=== PATIENT | female | born 1955 | race Two or more races ===

== ENCOUNTER 2023-07-24 13:05 | Outpatient (REF) | payer OTHER, SELFPAY ==
[2023-07-24 18:12] LABS: Anion Gap 14 (12-20); Blood Urea Nitrogen 37 mg/dL (9-16); Calcium 9.3 mg/dL (8.4-10.2); Carbon Dioxide 24 mmol/L (22-29); Chloride 107 mmol/L (96-108); Estimated Glomerular Filt Rate 38; Potassium 4.6 mmol/L (3.3-5.1); Sodium 140 mmol/L (135-145)
== END 2023-07-24 13:06 | disposition home or self-care (01) ==
LOC: HO.HKASLDS 13:05
PROVIDERS: Visit Provider Internal Medicine Nephrology
DX: N18.30 Chronic kidney disease, stage 3 unspecified (principal)
CPT/HCPCS: 36415; 80051; 82310; 82565; 84520

== ENCOUNTER 2023-07-25 15:21 | Outpatient (AMB) | payer OTHER, SELFPAY ==
[2023-07-25 15:39] VITALS: BP 130/70; PULSE 74; O2SAT 98; BMI 27.8
--- NOTE | 2023-07-25 15:39 | HO.NEPHOV ---
HPI HPI Comments History of Present Illness Details I had the privilege of seeing Christy in follow-up of her chronic kidney disease and hypertension. She has history of leukemia and had undergone bone marrow transplant in 1994( she had been in remission but used to see Dr. Caro at [facility] who has since retired). She does not have any chest pain, shortness of breath, proximal nocturnal dyspnea, orthopnea, pedal edema or urinary symptoms. Her recent serum creatinine was 1.4. [facility] Medical History (Updated 07/25/23 @ 16:09 by Dain Herrera MD) Leukemia Hypertension CKD (chronic kidney disease) stage 3, GFR 30-59 ml/min Surgical History (Updated 07/25/23 @ 15:45 by Aimee Ambrocio MA) History of cholecystectomy H/O bone marrow transplant Family History Father Heart disease Mother Diabetes Social History (Updated 07/25/23 @ 15:44 by Aimee Ambrocio MA) Alcohol intake: current Comment: Socially Patient Tobacco Use Status: Never used Tobacco Vital Signs 07/25/23 15:39 Height 5 ft 2 in Weight 152 lb 2 oz BMI 27.8 BP 130/70 Blood Pressure Location Lt brachial Position Sitting Pulse 74 Pulse Source Pulse Oximeter Pulse Oximetry (%) 98 Oxygen Delivery Method Room Air Physical Exam Vital Signs: Last Vital Signs Pulse 74 07/25/23 15:39 BP 130/70 07/25/23 15:39 Pulse Ox 98 07/25/23 15:39 Oxygen Delivery Method Room Air 07/25/23 15:39 BMI result Body Mass Index 27.8 Const General: comfortable and no acute distress Orientation/consciousness: patient oriented x3 HEENT Head: Yes normocephalic Mouth: Normal oral and palatal mucosa present Eyes EOM: EOMs intact bilaterally Neck Neck: Yes supple Resp Auscultation: clear to auscultation bilaterally Cardio Jugular venous distension: no JVD Rate: regular rate GI Palpation (GI): Soft to palpation Auscultation: normal bowel sounds General: Yes no CVA tenderness Back/Spine/Pelvis Back: no CVA tenderness Skin General skin exam: no rashes or lesions noted Neuro General: patient oriented x3 and moves all extremities Extrem General: Yes no pedal edema Assessment & Plan Assessment & Plan (1) CKD (chronic kidney disease) stage 3, GFR 30-59 ml/min: Code(s): N18.30 - Chronic kidney disease, stage 3 unspecified Qualifiers: Chronic kidney disease stage 3 subtype: stage 3a (GFR 45-59) Qualified Code(s): N18.31 - Chronic kidney disease, stage 3a (2) Hypertension: Code(s): I10 - Essential (primary) hypertension Qualifiers: Hypertension type: primary hypertension Qualified Code(s): I10 - Essential (primary) hypertension (3) Secondary hyperparathyroidism (of renal origin): Code(s): N25.81 - Secondary hyperparathyroidism of renal origin Ishan Harrison has CKD for long time. Her serum creatinine is currently stable with a last reading being 1.4. She is not known to have any significant proteinuria. Her blood pressure is currently at goal. She is compliant with amlodipine. Her ultrasound in the past was unrevealing. She avoids nonsteroidal anti-inflammatories and tries to keep up with good hydration. She has had high uric acid in the past and takes allopurinol on every other day. Her PTH couple years ago was high. I will check a parathyroid hormone level along with vitamin-D. Her serum calcium has been normal. I did not make any medication changes today. Follow-up blood work ordered. Answered all questions. Follow-up appointment given. Orders: Orders Electrolytes Today I10 - Essential (primary) hypertension, N18.30 - Chronic kidney disease, stage 3 unspecified Vitamin D 25-OH Total Today I10 - Essential (primary) hypertension, N18.30 - Chronic kidney disease, stage 3 unspecified, N25.81 - Secondary hyperparathyroidism of renal origin Creatinine Today I10 - Essential (primary) hypertension, N18.30 - Chronic kidney disease, stage 3 unspecified Blood Urea Nitrogen Today I10 - Essential (primary) hypertension, N18.30 - Chronic kidney disease, stage 3 unspecified Calcium Today I10 - Essential (primary) hypertension, N18.30 - Chronic kidney disease, stage 3 unspecified Uric Acid Today I10 - Essential (primary) hypertension, N18.30 - Chronic kidney disease, stage 3 unspecified Protein Creatinine Ratio, Ur Today I10 - Essential (primary) hypertension, N18.30 - Chronic kidney disease, stage 3 unspecified Parathyroid Hormone Intact Today I10 - Essential (primary) hypertension, N18.30 - Chronic kidney disease, stage 3 unspecified, N25.81 - Secondary hyperparathyroidism of renal origin Coding Level of Care Code Est Pt Level 4 (34914) Diagnoses Stage 3a chronic kidney disease N18.31 Chronic kidney disease stage 3 subtype: stage 3a (GFR 45-59) Primary hypertension I10 Hypertension type: primary hypertension Secondary hyperparathyroidism (of renal origin) N25.81 Results Reviewed Nephrology Results: Sodium 140 mmol/L (135-145) 07/24/23 Potassium 4.6 mmol/L (3.3-5.1) 07/24/23 Chloride 107 mmol/L (96-108) 07/24/23 Carbon Dioxide 24 mmol/L (22-29) 07/24/23 BUN 37 mg/dL (9-16) H 07/24/23 Creatinine 1.40 mg/dL (0.5-1.4) 07/24/23 Calcium 9.3 mg/dL (8.4-10.2) 07/24/23
== END 2023-07-25 16:02 | disposition home or self-care (01) ==
PROVIDERS: PCP Hospitalist; Visit Provider Internal Medicine Nephrology
DX: N18.31 Chronic kidney disease, stage 3a (principal); I10 Essential (primary) hypertension; N25.81 Secondary hyperparathyroidism of renal origin
CPT/HCPCS: 99214

== ENCOUNTER → 2023-07-25 15:21 | Outpatient (BNVA) | payer OTHER, SELFPAY | PROVIDERS: PCP Hospitalist; Visit Provider Internal Medicine Nephrology | DX: I12.9 Hypertensive chronic kidney disease with stage 1 through stage 4 chronic kidney disease, or unspecified chronic kidney disease (principal); N18.31 Chronic kidney disease, stage 3a; N25.81 Secondary hyperparathyroidism of renal origin | CPT/HCPCS: 99212 ==

== ENCOUNTER 2023-11-06 10:48 | Emergency (ER) | payer OTHER, SELFPAY ==
--- NOTE | ~2023-11-06 | XR_ITS ---
EXAMINATION: XR CHEST CLINICAL INFORMATION: Chest pain. COMPARISON: None available. TECHNIQUE: 2 views of the chest were obtained. FINDINGS: The lungs are clear. The cardiomediastinal silhouette is normal in size. There is no pleural effusion or pneumothorax. No acute osseous abnormality. XR/XR chest 2V IMPRESSION: No acute cardiopulmonary findings.
--- NOTE | 2023-11-06 10:50 | ECG_ITS ---
Test Reason : CHEST PAIN Blood Pressure : / mmHG Vent. Rate : 078 BPM Atrial Rate : 078 BPM P-R Int : 136 ms QRS Dur : 072 ms QT Int : 368 ms P-R-T Axes : 002 001 051 degrees QTc Int : 419 ms Normal sinus rhythm Septal infarct , age undetermined Abnormal ECG No previous ECGs available Referred By: Generic ED Physician Electronically Signed By:BILL HA MD
[2023-11-06 10:58] VITALS: BP 163/62; PULSE 83; RESP 16; TEMP 37; O2SAT 98; BMI 28.0
[2023-11-06 11:16] LABS: MANUAL DIFF FLAG NO
[2023-11-06 11:20] LABS: Basophils Percent Auto 0.3 % (0-2); Eosinophils Absolute Auto 0.5 X10*3/uL (0.0-0.4); Eosinophils Percent Auto 7.3 % (0-4); Hemoglobin 11.5 g/dl (12.0-16.0); Imm Gran Abs Auto 0.01 X10*3/uL (0.00-0.03); Imm Gran Pct Auto 0.2 % (0.0-0.4); Lymphocytes Absolute Auto 3.1 X10*3/uL (1.2-4.9); Lymphocytes Percent Auto 46.8 % (20-40); Mean Corpuscular HGB Conc 31.1 g/dl (31.0-35.0); Mean Corpuscular Hemoglobin 24.8 pg (27.0-33.0); Mean Corpuscular Volume 79.9 fL (80.0-98.0); Mean Platelet Volume 10.9 fL (9.4-12.3); Monocytes Absolute Auto 0.7 X10*3/uL (0.1-1.2); Monocytes Percent Auto 10.6 % (2-11); Neutrophils Absolute Auto 2.3 x10*3/uL (2.0-8.3); Neutrophils Percent Auto 34.8 % (45-73); Platelet Count 173 X10*3/uL (160-400); Red Blood Count 4.63 X10*6/uL (4.20-5.50); White Blood Count 6.5 X10*3/uL (4.8-10.8)
[2023-11-06 11:24] LABS: INTERNATIONAL NORM RATIO 0.9 (0.9-1.1); Prothrombin Time 11.1 SEC (11.1-13.3)
[2023-11-06 11:27] LABS: Partial Thromboplastin Time 24.4 SEC (26.0-36.8)
[2023-11-06 11:31] LABS: Anion Gap 15 (12-20); Blood Urea Nitrogen 38 mg/dL (9-16); Calcium 10.2 mg/dL (8.4-10.2); Carbon Dioxide 24 mmol/L (22-29); Chloride 109 mmol/L (96-108); Creatinine Clr Calc Pharmacy 38.6; Estimated Glomerular Filt Rate 41; Glucose Random 103 mg/dL (60-115); Potassium 4.8 mmol/L (3.3-5.1); Sodium 143 mmol/L (135-145)
[2023-11-06 11:37] LABS: B Type Natriuretic Peptide 21 pg/mL (<100)
[2023-11-06 11:44] LABS: Troponin-I High Sensitivity < 2.7 ng/L (<3.5-17.0)
--- NOTE | 2023-11-06 11:45 | ED_ITS ---
HPI - Chest Pain General Chief Complaint: Chest Pain Stated Complaint: chest pain Time Seen by Provider: 11/06/23 11:42 Source: patient Mode of arrival: ambulatory Limitations: language barrier History of Present Illness ED Provider: Dr. Singletary HPI narrative: Patient with a week of bilateral flank pain now going to her abdomen after a week. Feeling worse no nausea, vomiting or diarrhea, no chest pain or shortness of breath Onset (ago): week(s) Timing of current episode: episodic Prior episodes: Yes Related Data Previous Rx's ?Medication ?Instructions ?Recorded pantoprazole 40 mg tablet,delayed 40 mg PO DAILY #20 tabs 11/06/23 release (Protonix) Allergies Allergy/AdvReac Type Severity Reaction Status Date / Time No Known Allergies Allergy Verified 11/06/23 11:01 Review of Systems 2 Review of Systems: Yes all other systems are reviewed and are negative Neurologic: Denies Sensory deficit (Neuro) [facility] Past Medical History Medical History Leukemia Hypertension CKD (chronic kidney disease) stage 3, GFR 30-59 ml/min Surgical History History of cholecystectomy H/O bone marrow transplant Family History Family History Father Heart disease Mother Diabetes Social History Social History Alcohol intake: current Comment: Socially Patient Tobacco Use Status: Never used Tobacco Physical Exam 2 Vital Signs: Vital Signs: Last Vital Signs Temp 98.1 F 11/06/23 14:20 Pulse 76 11/06/23 14:20 Resp 17 11/06/23 14:20 BP 157/79 H 11/06/23 14:20 Pulse Ox 99 11/06/23 14:20 O2 Del Method Room Air 11/06/23 14:20 BMI result Body Mass Index 28.0 Const: General: healthy appearing Nutritional Appearance: average body habitus Orientation/consciousness: oriented to person and patient oriented x3 Limitations: no limitations HEENT: Head: Yes normal to inspection Ears: external ears normal General nose exam: Normal external nose present Mouth: Normal oral and palatal mucosa present and oropharynx normal Throat: Yes posterior oropharynx normal Eyes: General: appearance normal, both eyes and all related structures Neck: Other: supple Neck: Yes normal visual inspection Chest: Chest palpation & inspection: normal inspection of the chest Resp: Auscultation: clear to auscultation bilaterally Cardio: Jugular venous distension: no JVD Rate: regular rate Rhythm: r egular rhythm Heart sounds: S1 normal heart sound present and S2 normal heart sound present GI: Other: Mild epigastric and right upper quadrant pain Inspection: Yes normal to inspection Auscultation: normal bowel sounds : General: Yes no CVA tenderness Back/Spine/Pelvis: Back: no CVA tenderness Skin: General skin exam: no rashes or lesions noted Neuro: General: oriented to person and patient oriented x3 Cranial nerves: Yes CN's II-XII intact bilaterally Motor exam (neuro): 5/5 motor strength present throughout Sensory Exam: No Sensory deficit (Neuro) Extrem: General: Yes normal to inspection Psych: Appearance: grossly normal Course Reevaluation(s) Reevaluation #1: patient feeling better will treat for gastritis and have patient follow up with pmd Time: 13:50 Medications Administered Discontinued Medications Generic Name Dose Route Start Last Admin Trade Name Freq PRN Reason Stop Dose Admin Al Hydroxide/Mg Hydroxide 30 ml 11/06/23 12:20 11/06/23 12:31 Magnesium Hydrox/Alum Hydrox 30 Ml Oral.Susp PO 11/06/23 12:21 30 ml ONCE ONE Administration Belladonna Alkaloids/Phenobarbital 10 ml 11/06/23 12:20 11/06/23 12:32 Phenobarb/Hyoscy/Atropine/Scop 10 Ml Elixir PO 11/06/23 12:21 10 ml ONCE ONE Administration Famotidine 20 mg 11/06/23 12:21 11/06/23 12:31 Famotidine 20 Mg Tablet PO 11/06/23 12:22 20 mg ONCE ONE Administration Lidocaine HCl 15 ml 11/06/23 12:20 11/06/23 12:32 Lidocaine Hcl Viscous 2 % 15 Ml Solution MUCOUS MEM 11/06/23 12:21 15 ml ONCE ONE Administration Medical Decision Making Differential Diagnosis Differential Diagnoses: The differential diagnosis associated with the presentation includes (cardiac ischemia, biliary obstruction, pancreatitis, pneumonia were all considered) Admission/Observation Consideration of admission/observation: Escalation of care including admission/observation considered (upon arrival patient considered for admission) Lab Data 11/06/23 11:08 11/06/23 11:08 Labs: Lab Results 11/06/23 Range/Units 11:08 WBC 6.5 (4.8-10.8) X10*3/uL RBC 4.63 (4.20-5.50) X10*6/uL Hgb 11.5 L (12.0-16.0) g/dl Hct 37.0 (37.0-47.0) % MCV 79.9 L (80.0-98.0) fL MCH 24.8 L (27.0-33.0) pg MCHC 31.1 (31.0-35.0) g/dl RDW 17.0 H (11.0-16.0) % Plt Count 173 (160-400) X10*3/uL MPV 10.9 (9.4-12.3) fL Immature Gran % (Auto) 0.2 (0.0-0.4) % Neut % (Auto) 34.8 L (45-73) % Lymph % (Auto) 46.8 H (20-40) % [place] % (Auto) 10.6 (2-11) % Eos % (Auto) 7.3 H (0-4) % Baso % (Auto) 0.3 (0-2) % Lymph # (Auto) 3.1 (1.2-4.9) X10*3/uL [place] # (Auto) 0.7 (0.1-1.2) X10*3/uL Eos # (Auto) 0.5 H (0.0-0.4) X10*3/uL Baso # (Auto) 0.0 (0.0-0.2) X10*3/uL Abs Immat Gran (auto) 0.01 (0.00-0.03) X10*3/uL Absolute Neuts (auto) 2.3 (2.0-8.3) x10*3/uL Absolute Nucleated RBC 0.000 (0.0-0.012) X10*3/uL Nucleated RBC % (auto) 0.0 (0.0-0.2) /100WBC PT 11.1 (11.1-13.3) SEC INR 0.9 (0.9-1.1) APTT 24.4 L (26.0-36.8) SEC Sodium 143 (135-145) mmol/L Potassium 4.8 (3.3-5.1) mmol/L Chloride 109 H (96-108) mmol/L Carbon Dioxide 24 (22-29) mmol/L Anion Gap 15 (12-20) BUN 38 H (9-16) mg/dL Creatinine 1.29 (0.5-1.4) mg/dL Estim Creat Clear Calc 38.6 Estimated GFR 41 Random Glucose 103 (60-115) mg/dL Calcium 10.2 D (8.4-10.2) mg/dL Total Bilirubin 0.3 (0.0-1.0) mg/dL Direct Bilirubin < 0.1 (0.0-0.5) mg/dL AST 23 (5-31) U/L ALT 21 (0-31) U/L Alkaline Phosphatase 140 H (39-117) U/L Troponin I High Sens < 2.7 (<3.5-17.0) ng/L B-Natriuretic Peptide 21 (<100) pg/mL Total Protein 7.7 (6.5-8.0) g/dL Albumin 4.0 (3.5-5.0) g/dL Lipase 47 (8-78) U/L Influenza Type A (PCR) NEGATIVE (Negative) Influenza Type B (PCR) NEGATIVE (Negative) RSV RNA Qual (PCR) NEGATIVE (Negative) SARS-CoV-2 RNA (RT-PCR) NEGATIVE (Negative) Independent Interpretation I performed an independent interpretation of an: EKG (sinus 80, no st or twave changes) Independent Historian Clinical information obtained from an independent historian. History obtained from or confirmed by: Other (family) Tests considered The following testing was considered but not selected: RUQ US considered but lfts and bili and lipase all normal Prescription Management I considered prescription management with: Antibiotic (no evidence of pneumonia on CXR) Chronic Conditions Patient?s care impacted by: Hypertension Discharge Plan Discharge Clinical Impression: Chronic GERD Patient Disposition: Home, Self-Care Instructions: Gastroesophageal Reflux Disease (ED), Indigestion (ED), Noncardiac Chest Pain (ED) Prescriptions: New pantoprazole [Protonix] 40 mg tablet,delayed release (DR/EC) 40 mg PO DAILY Qty: 20 0RF Referrals: Physician,Unknown J [Primary Care Provider] - 5 days Interventions: ED Discharge Assessment Last Done: 11/06/23 14:20 Discharge Date/Time: 11/06/23 14:21 Print Language: Yoruba
[2023-11-06 11:55] LABS: Influenza A PCR NEGATIVE (Negative); Influenza B PCR NEGATIVE (Negative); Resp Syncy Virus RNA Qual PCR NEGATIVE (Negative); SARS COV2 PCR INHOUSE NEGATIVE (Negative)
[2023-11-06 12:14] VITALS: BP 174/90; PULSE 76; RESP 18; TEMP 36.6; O2SAT 98
--- NOTE | 2023-11-06 12:15 | PC.NURSE ---
Palestinian speaking only, medical data entry clerk utilized. Pt presents from home, reports back pain radiating to her epigastric area, 01/24, describes as aching and pressure. Pt reports this has been ongoing X1 week, worsened today. Denies N/V/D, SOB, fever, cough. Denies any recent illnesses or falls, did not take home meds today. Is on blood thinners for previous DVTs. Pt is alert and oriented, breathing even and unlabored, skin warm and dry. On bedside color television console monitor, NSR. BP hypertensive.
[2023-11-06] MEDS: Famotidine 20 MG TABLET PO (12:31)
[2023-11-06] MEDS: Magnesium Hydrox/Alum Hydrox 30 ML ORAL.SUSP PO (12:31)
[2023-11-06] MEDS: Lidocaine HCl Viscous 2 % 15 ML SOLUTION MUCOUS MEM (12:32)
[2023-11-06] MEDS: PHENobarb/Hyoscy/Atropine/Scop 10 ML ELIXIR PO (12:32)
[2023-11-06 12:46] LABS: Alanine Aminotransferase 21 U/L (0-31); Alkaline Phosphatase 140 U/L (39-117); Aspartate Amino Transferase 23 U/L (5-31); Bilirubin Direct < 0.1 mg/dL (0.0-0.5); Bilirubin Total 0.3 mg/dL (0.0-1.0); Lipase 47 U/L (8-78); Total Protein 7.7 g/dL (6.5-8.0)
[2023-11-06 14:19] VITALS: BP 157/79; PULSE 76; RESP 17; TEMP 36.7; O2SAT 99
[2023-11-06 14:20] VITALS: BP 157/79; PULSE 76; RESP 17; TEMP 36.7; O2SAT 99
== END 2023-11-06 14:21 | disposition home or self-care (01) ==
PROVIDERS: Emergency Provider Emergency Medicine
DX: K21.9 Gastro-esophageal reflux disease without esophagitis (principal); R07.9 Chest pain, unspecified; R10.9 Unspecified abdominal pain; I12.9 Hypertensive chronic kidney disease with stage 1 through stage 4 chronic kidney disease, or unspecified chronic kidney disease; N18.30 Chronic kidney disease, stage 3 unspecified; C95.90 Leukemia, unspecified not having achieved remission; Z03.818 Encounter for observation for suspected exposure to other biological agents ruled out
CPT/HCPCS: 0241U; 36415; 71046; 80048; 80076; 83690; 83880; 84484; 85025; 85610; 85730; 93005; 99283; 99285

== ENCOUNTER → 2023-11-06 10:50 | Outpatient (BNV) | payer OTHER, SELFPAY | PROVIDERS: Emergency Provider Emergency Medicine; Visit Provider Internal Medicine Cardiovascular Disease | DX: R94.31 Abnormal electrocardiogram [ECG] [EKG] (principal) | CPT/HCPCS: 93010 ==

== ENCOUNTER 2023-12-31 15:46 | Outpatient (AMB) | payer OTHER, SELFPAY ==
[2023-12-31 16:16] VITALS: BP 132/70; PULSE 79; O2SAT 98; BMI 27.2
--- NOTE | 2023-12-31 16:16 | HO.NEPHOV_ITS ---
Vital Signs 12/31/23 16:16 Height 5 ft 2 in Weight 149 lb BMI 27.2 BP 132/70 Blood Pressure Location Lt brachial Position Sitting Pulse 79 Pulse Source Pulse Oximeter Pulse Oximetry (%) 98 Oxygen Delivery Method Room Air Intake Visit Reasons: 4 mon follow up Set Up Inspector Required: No Accompanied by: Daughter In Law Allergies No Known Allergies Allergy (Verified 12/31/23 16:18) HPI Comments Details: I had the privilege of seeing Christy in follow-up of her chronic kidney disease and hypertension. She has history of leukemia and had undergone bone marrow transplant in 1994( she had been in remission but used to see Dr. Caro at [facility] who has since retired). She does not have any chest pain, shortness of breath, proximal nocturnal dyspnea, orthopnea, pedal edema or urinary symptoms. Her recent serum creatinine was 1.2. [facility] Medical History Leukemia Hypertension CKD (chronic kidney disease) stage 3, GFR 30-59 ml/min Surgical History History of cholecystectomy H/O bone marrow transplant Family History Father Heart disease Mother Diabetes Social History Alcohol intake: current Comment: Socially Patient Tobacco Use Status: Never used Tobacco Physical Exam Vital Signs: BMI result Body Mass Index 27.2 Const General: comfortable and no acute distress Orientation/consciousness: patient oriented x3 HEENT Head: Yes normocephalic Mouth: Normal oral and palatal mucosa present Eyes EOM: EOMs intact bilaterally Neck Neck: Yes supple Resp Auscultation: clear to auscultation bilaterally Cardio Jugular venous distension: no JVD Rate: regular rate GI Palpation (GI): Soft to palpation Auscultation: normal bowel sounds General: Yes no CVA tenderness Back/Spine/Pelvis Back: no CVA tenderness Skin General skin exam: no rashes or lesions noted Neuro General: patient oriented x3 and moves all extremities Extrem General: Yes no pedal edema Results Reviewed Nephrology Results: Hgb 11.5 g/dl (12.0-16.0) L 11/06/23 WBC 6.5 X10*3/uL (4.8-10.8) 11/06/23 Plt Count 173 X10*3/uL (160-400) 11/06/23 Sodium 143 mmol/L (135-145) 11/06/23 Potassium 4.8 mmol/L (3.3-5.1) 11/06/23 Chloride 109 mmol/L (96-108) H 11/06/23 Carbon Dioxide 24 mmol/L (22-29) 11/06/23 BUN 38 mg/dL (9-16) H 11/06/23 Creatinine 1.29 mg/dL (0.5-1.4) 11/06/23 Calcium 10.2 mg/dL (8.4-10.2) 11/06/23 Assessment & Plan Assessment & Plan (1) Secondary hyperparathyroidism (of renal origin): Code(s): N25.81 - Secondary hyperparathyroidism of renal origin Category: Medical (2) Hypertension: Code(s): I10 - Essential (primary) hypertension Category: Medical Qualifiers: Hypertension type: primary hypertension Qualified Code(s): I10 - Essential (primary) hypertension (3) CKD (chronic kidney disease) stage 3, GFR 30-59 ml/min: Code(s): N18.30 - Chronic kidney disease, stage 3 unspecified Category: Medical Qualifiers: Chronic kidney disease stage 3 subtype: stage 3a (GFR 45-59) Qualified Code(s): N18.31 - Chronic kidney disease, stage 3a Plan Christy has CKD for long time. Her serum creatinine is currently stable with a last reading being 1.2. She is not known to have any significant proteinuria. Her blood pressure is currently at goal. She is compliant with amlodipine. I asked her to take 1/2 tablet of Amlodipine given intermittent orthostatic symptoms. Her ultrasound in the past was unrevealing. She avoids nonsteroidal anti-inflammatories and tries to keep up with good hydration. She has had high uric acid in the past and takes allopurinol . Her serum calcium has been normal. I did not make any medication changes today. Follow-up blood work ordered. Answered all questions. Follow-up appointment given. Orders: Orders Electrolytes Today I10 - Essential (primary) hypertension, N18.31 - Chronic kidney disease, stage 3a, N25.81 - Secondary hyperparathyroidism of renal origin Uric Acid Today I10 - Essential (primary) hypertension, N18.31 - Chronic kidney disease, stage 3a, N25.81 - Secondary hyperparathyroidism of renal origin Blood Urea Nitrogen Today I10 - Essential (primary) hypertension, N18.31 - Chronic kidney disease, stage 3a, N25.81 - Secondary hyperparathyroidism of renal origin Creatinine Today I10 - Essential (primary) hypertension, N18.31 - Chronic kidney disease, stage 3a, N25.81 - Secondary hyperparathyroidism of renal origin Coding Level of Care Code Est Pt Level 4 (16752) Diagnoses Secondary hyperparathyroidism (of renal origin) N25.81 Primary hypertension I10 Hypertension type: primary hypertension Stage 3a chronic kidney disease N18.31 Chronic kidney disease stage 3 subtype: stage 3a (GFR 45-59)
== END 2023-12-31 16:37 | disposition home or self-care (01) ==
PROVIDERS: PCP Hospitalist; Visit Provider Internal Medicine Nephrology
DX: N25.81 Secondary hyperparathyroidism of renal origin (principal); I10 Essential (primary) hypertension; N18.31 Chronic kidney disease, stage 3a
CPT/HCPCS: 99214

== ENCOUNTER → 2023-12-31 15:46 | Outpatient (BNVA) | payer OTHER, SELFPAY | PROVIDERS: PCP Hospitalist; Visit Provider Internal Medicine Nephrology | DX: I12.9 Hypertensive chronic kidney disease with stage 1 through stage 4 chronic kidney disease, or unspecified chronic kidney disease (principal); N18.31 Chronic kidney disease, stage 3a; N25.81 Secondary hyperparathyroidism of renal origin | CPT/HCPCS: 99212 ==

== ENCOUNTER 2024-05-05 13:44 | Outpatient (AMB) | payer OTHER, SELFPAY ==
--- NOTE | 2024-05-05 13:48 | HO.NEPHOV ---
Vital Signs 05/05/24 13:50 Height 5 ft 2 in Weight 145 lb 4 oz BMI 26.6 BP 140/80 H Blood Pressure Location Lt brachial Position Sitting Pulse 84 Pulse Source Pulse Oximeter Pulse Oximetry (%) 97 Oxygen Delivery Method Room Air Intake Visit Reasons: 4 mon follow up-Conf Merchandising Coordinator Required: Yes Merchandising Coordinator Language: Auto Radio Mechanic Services: Merchandising Coordinator Offered & Declined ([facility] school leader services refused, NUCLEAR POWER REACTOR OPERATOR will interpret) Merchandising Coordinator Name: Nafisa Accompanied by: Other Relationship Allergies No Known Allergies Allergy (Verified 05/05/24 13:52) HPI Comments Details: Christy was seen in follow-up of her chronic kidney disease and hypertension. She has history of leukemia and had undergone bone marrow transplant in 1994( she had been in remission but used to see Dr. Caro at [facility] who has since retired). She does not have any chest pain, shortness of breath, proximal nocturnal dyspnea, orthopnea, pedal edema or urinary symptoms. Her recent serum creatinine was 1.2. She is not taking OTC medications. She had stopped her Amlodipine due to drop in BP ( not taking since 2 weeks ) [facility] Medical History Leukemia Hypertension CKD (chronic kidney disease) stage 3, GFR 30-59 ml/min Surgical History History of cholecystectomy H/O bone marrow transplant Family History Father Heart disease Mother Diabetes Social History Alcohol intake: current Comment: Socially Patient Tobacco Use Status: Never used Tobacco Review of Systems Const All systems reviewed & are unremarkable except as noted in HPI and below Physical Exam Vital Signs: Last Vital Signs Pulse 84 05/05/24 13:50 BP 140/80 H 05/05/24 13:50 Pulse Ox 97 05/05/24 13:50 Oxygen Delivery Method Room Air 05/05/24 13:50 BMI result Body Mass Index 26.6 Const General: comfortable and no acute distress Orientation/consciousness: patient oriented x3 HEENT Head: Yes normocephalic Mouth: Normal oral and palatal mucosa present Eyes EOM: EOMs intact bilaterally Neck Neck: Yes supple Resp Auscultation: clear to auscultation bilaterally Cardio Jugular venous distension: no JVD Rate: regular rate GI Palpation (GI): Soft to palpation Auscultation: normal bowel sounds General: Yes no CVA tenderness Back/Spine/Pelvis Back: no CVA tenderness Skin General skin exam: no rashes or lesions noted Neuro General: patient oriented x3 and moves all extremities Extrem General: Yes no pedal edema Assessment & Plan Assessment & Plan (1) CKD (chronic kidney disease) stage 3, GFR 30-59 ml/min: Code(s): N18.30 - Chronic kidney disease, stage 3 unspecified Category: Medical Qualifiers: Chronic kidney disease stage 3 subtype: stage 3a (GFR 45-59) Qualified Code(s): N18.31 - Chronic kidney disease, stage 3a (2) Hypertension: Code(s): I10 - Essential (primary) hypertension Category: Medical Qualifiers: Hypertension type: primary hypertension Qualified Code(s): I10 - Essential (primary) hypertension Plan Christy has CKD for long time. Her serum creatinine is currently stable with a last reading being 1.2. She is not known to have any significant proteinuria. Her blood pressure is currently at goal. She is not taking amlodipine which we may to start at a lower dose . Her ultrasound in the past was unrevealing. She avoids nonsteroidal anti-inflammatories and tries to keep up with good hydration. She has had high uric acid in the past and takes allopurinol . Her serum calcium has been normal. I did not make any medication changes today. Answered all questions. Follow-up appointment given Coding Level of Care Code Est Pt Level 4 (89291) Diagnoses Stage 3a chronic kidney disease N18.31 Chronic kidney disease stage 3 subtype: stage 3a (GFR 45-59) Primary hypertension I10 Hypertension type: primary hypertension
[2024-05-05 13:50] VITALS: BP 140/80; PULSE 84; O2SAT 97; BMI 26.6
== END 2024-05-05 14:13 | disposition home or self-care (01) ==
PROVIDERS: PCP Hospitalist; Visit Provider Internal Medicine Nephrology
DX: N18.31 Chronic kidney disease, stage 3a (principal); I10 Essential (primary) hypertension
CPT/HCPCS: 99214

== ENCOUNTER → 2024-05-05 13:44 | Outpatient (BNVA) | payer OTHER, SELFPAY | PROVIDERS: PCP Hospitalist; Visit Provider Internal Medicine Nephrology | DX: I12.9 Hypertensive chronic kidney disease with stage 1 through stage 4 chronic kidney disease, or unspecified chronic kidney disease (principal); N18.31 Chronic kidney disease, stage 3a | CPT/HCPCS: 99212 ==

== ENCOUNTER 2024-08-17 12:09 | Outpatient (REF) | payer OTHER, SELFPAY ==
[2024-08-17 13:07] LABS: Anion Gap 11 (12-20); Blood Urea Nitrogen 37 mg/dL (9-16); Carbon Dioxide 25 mmol/L (22-29); Chloride 114 mmol/L (96-108); Estimated Glomerular Filt Rate 40; Potassium 4.6 mmol/L (3.3-5.1); Sodium 145 mmol/L (135-145); Uric Acid 5.4 mg/dL (2.4-5.7)
--- OUTSIDE RECORDS SUMMARY | 2024-08-17 14:16 | XMS_ITS | Clinical Summary ---
Author Organization [facility] Address [address] [place] [address] Care Team Providers Care Conference Translator Name Role Phone Leighann Mcgrath MD Primary Care Provider [phone] Allergies No known active allergies Medications Medication Sig Dispensed Refills Start Date End Date Status allopurinol (ZYLOPRIM) 300 MG tablet Take 1 tablet by mouth daily. 0 07/05/2017 Active amLODIPine (NORVASC) tablet 10 mg Take 1 tablet by mouth daily. 0 07/05/2017 Active atorvastatin (LIPITOR) tablet 40 mg Take 40 mg by mouth daily. 0 01/05/2022 Active Diclofenac Sodium (Voltaren) 1 % GEL as directed 0 01/28/2020 Activ e ergocalciferol (VITAMIN D2) capsule 15069 units 1 capsule 0 05/07/2018 Active hydrOXYzine (ATARAX) 25 MG tablet 1 tablet as needed 0 06/05/2018 Acti ve losartan (COZAAR) tablet 25 mg Take 1 tablet by mouth daily. 0 05/07/2018 Active omeprazole (PriLOSEC) 20 MG capsule 1 capsule 0 07/05/2017 Active prazosin (MINIPRESS) 1 MG capsule Take 1 mg by mouth every night at bedtime. 0 12/25/2021 Active sertraline (ZOLOFT) 100 MG tablet Take 100 mg by mouth every morning. 0 12/25/2021 Active apixaban (Eliquis) 2.5 MG TABS tablet Take 1 tablet (2.5 mg total) by mouth 2 (two) times a day. 60 tablet 2 02/26/2022 Active Active Problems No known active problems Social History Tobacco Use Types Packs/Day Years Used Date Smoking Tobacco: Never Smokeless Tobacco: Never Alcohol Use Standard Drinks/Week Comments Never 0 (1 standard drink = 0.6 oz pur e alcohol) Sex and Gender Information Value Date Recorded Sex Assigned at Not on file Gender Identity Not on file Sexual Orientation Not on file Job Start Date Occupation Industry Not on file Not on file Not on file Last Filed Vital Signs Vital Sign Reading Time Taken Comments Blood Pressure 153/71 04/24/2022 2:25 PM EST Pulse 82 04/24/2022 2:25 PM EST Temperature 36.5 ??C (97.7 ??F) 04/24/2022 2:25 PM ES T Respiratory Rate - - Oxygen Saturation 100% 04/24/2022 2:25 PM EST Inhaled Oxygen Concentration - - Weight 69.4 kg (153 lb) 04/24/2022 2:25 PM EST Height - - Body Mass Index - - Plan of Treatment Health Maintenance Due Date Last Done Comments Hepatitis C Screening 1955 COVID-19 Vaccine (#1) 02/22/1957 Depression Screening 1968 Preventative Health Evaluation 1974 DTap / Tdap / Td (1 - Tdap) 08/23/1975 Colon Cancer Screening (Colonoscopy) 2001 Breast Cancer Screening (Mammogram) 2006 Shingrix-Zoster Vaccine (1 of 2) 2006 Fall Risk Assessment 2021 Osteoporosis Screening (DEXA Scan) 2021 Pneumococcal Vaccine (1 of 1 - PCV) 2021 Influenza Vaccine (#1) 2024 04/27/2021 RSV Adult > 60+ Yrs or Pregn ant (1 - 1-dose 75+ series) 08/23/2031 Hepatitis B Vaccines Aged Out No long er eligible based on patient's age to complete this topic RSV Ped < 20 months Aged Out No longe r eligible based on patient's age to complete this topic Care Teams Conference Translator Relationship Specialty Start Date End Date Leighann Mcgrath MD [address] [place] [address] PCP - General Internal Medicine 05/19/21
--- OUTSIDE RECORDS SUMMARY | 2024-08-17 14:16 | XMS_ITS ---
Author Organization [facility] Address [address] [facility] [address] [place] [address] Care Team Providers Care Public Address Technician Name Role Phone ERASTO NUNN Primary Care Provider [phone] Stan Jensen Unavailable [phone] Allergies No Known Allergies Results Component Value Reference Range Notes Comp. Metabolic Panel (14-3 Reviewed date:04/29/2024 02:37:30 PM Interpretation: Performing Lab:[facility] [place], [address] [place] [address], [place], Phone - [phone], Director - Anusha Notes/Report: Glucose 82 70-99 mg/dL BUN 37 8-27 mg/dL Creatinine 1.48 0.57-1.00 mg/dL eGFR 39 >59 mL/min/1.73 BUN/Creatinine Ratio 25 12-28 Sodium 145 134-144 mmol/L Potassium 4.4 3.5-5.2 mmol/L Chloride 112 96-106 mmol/L Carbon Dioxide, Total 19 20-29 mmol/L Calcium 8.9 8.7-10.3 mg/dL Protein, Total 6.6 6.0-8.5 g/dL Albumin 3.8 3.9-4.9 g/dL Globulin, Total 2.8 1.5-4.5 g/dL Bilirubin, Total 0.3 0.0-1.2 mg/dL Alkaline Phosphatase 154 44-121 IU/L AST (SGOT) 36 0-40 IU/L ALT (SGPT) 31 0-32 IU/L REASON FOR VISIT 2 week f/u Medications Medication SIG (Take, Route, Frequency, Duration) Notes Start Date End Date Status Eliquis 2.5 MG TAKE 1 TABLET BY PINA TH TWICE A DAY Orally Twice a day for 90 days Active Losartan Potassium 25 MG TAKE 1 TABLET B Y MOUTH EVERY DAY for 90 Not-Taking Shingrix 50 MCG/0.5ML as directed Intramuscular 1 for 365 days 04/25/2021 Not-Taking Pneumovax 23 25 MCG/0.5ML as directed In jection 1 for 362 days 04/25/2021 Not-Taking Ergocalciferol 44170 UNIT 1 capsule Oral ly once a week for 30 day(s) 05/07/2018 Not-Taking Allopurinol 300 MG TAKE 1 TABLET BY PINA TH EVERY DAY for 90 Active amLODIPine Besylate 5 MG TAKE 1 TABLET B Y MOUTH EVERY DAY for 90 days Not-Taking Compression Stockings 15-20mmhg to wear daily for pedal edema and hx of DVT for 30 05/07/2018 Active hydrOXYzine HCl 25 MG 1 tablet as needed Orally every 8 hrs for 90 days Active Atorvastatin Calcium 40 MG TAKE 1 TABLET BY MOUTH EVERY DAY for 90 Active Warfarin Sodium 5 MG 1 tablet Orally Onc e a day for 30 day(s) Not-Taking Warfarin Sodium 3 MG 1 tablet Orally Onc e a day for 30 day(s) 08/15/2018 Not-Taking Pantoprazole Sodium 40 MG 1 tablet Orall y as needed Active Prazosin HCl 1 MG 1 capsule at bedtime Orally Once a day Active Sertraline HCl 100 MG 1 tablet Orally On ce a day Active Omeprazole 20 MG 1 capsule Orally Onc e a day for 90 days Not-Taking PARoxetine HCl 30 MG 1 tablet in the mor sandy Orally Once a day for 90 days Not-Taking Vitamin D (Ergocalciferol) 1.25 MG (69103 UT) TAKE 1 CAPSULE BY MOUTH EVERY WEEK Orally Once weekly for 30 days Not-Taking Voltaren 1 % as directed Transder mal bid for 30 days 01/28/2020 Not-Taking Social History Tobacco Use: Social History Observation Description Date Details (start date - stop date) Never Smoker NA - NA Tobacco Use/Smoking Question Answer Notes Are you a nonsmoker Alcohol Screen (Audit-C) Question Answer Notes Did you have a drink containing alcohol in the p ast year? No Points 0 Interpretation Negative Vital Signs Temperature 97.9 degrees Fahrenheit 04/15/20 Oximetry 98 % 04/15/2024 Heart Rate 79 /min 04/15/2024 Blood pressure systolic 152 mm Hg 04/15/20 24 Blood pressure diastolic 76 mm Hg 024 Weight 146 lbs 04/15/2024 BMI 27.35 kg/m2 04/15/2024 Height 61.26 in 04/15/2024 Standing- 124/72Laying- 142/ 80 Encounters Encounter Location Date Provider Diagnosis [facility] [address] [facility] [address] [place] [address] 04/15/2024 Stan Jensen Essential (primary) hypertension I10 Assessments Encounter Date Diagnosis (ICD Code) Assessment Notes Treatment Notes Treatment Clinical Notes Section Notes 04/15/2024 Essential (primary) hypertension (ICD-10 - I10) Mrs. Acevedo is a 68-year-old lady with hypertension, mixed hyperlipidemia, gout and CKD stage [address] and follows up with Dr. Herrera here for dizziness and blood pressure. Plan as follows Hypertension Orthostatic vital signs - Patient is positive for orthostatic. She has stopped taking amlodipine for the past 2 days and she has felt much better in terms of head pressure but she continues to endorse dizziness. She states that she had a 24 hour blood pressure monitor done at an apology office before work and it was normal by an office increase is most likely whitecoat syndrome. She states her blood pressure at home is usually in the 120 after she stopped taking the medication however with the medication it was 109-100 and that prompted her to stop the medication. I will follow up in 1 week and advised patient to do daily blood pressure measurements for now. - She has an upcoming CAT scan of the brain for dizziness, she also has a clinic appointment with nephrology May 05 which we will be getting a second opinion on the blood pressure for that. For now advised hydration, and reducing salt intake. I have rendered the services for this patient under direct supervision of Dr. Nunn, who did not see the patient but was available upon request Plan Of Treatment Next Appt Details Follow Up: 1 Week-BP, Reason : Provider Name:Stan dumont, 08/25/2024 01:30:00 PM, [address] [facility] [address], [place], [address], Progress Notes * Christy ACEVEDOELIZABETH:1955 (68 yo F)Acc No.[id number]:04/15/2024 Progress Notes Patient:Christy JIMENEZ Provider:?Stan Jensen :1955???Age:68 Y???Sex:Female D ate:04/15/2024 Phone: Address:[address] [place] [address] [address], [facility] Pcp:ERASTO NUNN Subjective: * Chief Complaints: * ???2 week f/u * HPI: ???Internal Medicine:?Mrs. Acevedo is a 68-year-old lady with hypertension, mixed hyperlipidemia, gout and CKD stage 3 and follows up with Dr. Herrera here for dizziness and? blood pressure. During the previous visit, orthostatic vital signs were positive and we have decreased her amlodipine from 5 mg to 2.5 mg. Patient states that while at home measuring her blood pressure she has noticed that has been running in the 100- 109 systolic thoughts that she has stopped taking the medication. She noticed that after she stopped the medication she did not experience any head pressure but she continues to feel dizzy. She has an appointment coming up for CAT scan of the brain on April 30. Blood pressure is running high in the office today, she is still positive for orthostatics, I have discussed with the patient doing a 24-hour blood pressure monitor but she states that she had done not from a long time ago with Dr. Herrera and it was normal at home but high in the office .She has an appointment with nephrology May 05. Denies, CP, SOB, blurry vision, sweating, n/v, dysarthria. She denies any other active issues or concerns. * ROS:?General/Constitutional:?Overall health?Good.?Change in appetite?denies.?Chills?denies.?Fever?denies.?Night sweats?denies.?Sleep disturbance?denies.?Weight gain?denies.?Weight loss?denies.?Neurologic:?Difficulty speaking?denies.?Dizziness?admits, that is constant.?Gait abnormality?denies.?Headache?denies.?Loss of strength?denies.?Memory loss?denies.?Seizures?denies.?Tingling/Numbness?denies .?Ophthalmologic:?Blurred vision?denies.?Discharge?denies.?Dry eye?denies.?Red eye?denies.?ENT:?Change in Voice?Denies.?Cold Symptoms?Denies.?Cough?Denies.?Dizziness?Denies.?Nasal Congestion?Denies.?Otalgia?Denies.?postnasal drip?Denies.?Blocked ear?denies.?Nosebleed?denies.?Snoring?denies.?Cardiovascular:?Diaphoresis?Denies.?Pedal Edema?Denies.?PND (Paroxsymal nocturnal dyspnea)?Denies.?Chest pain?denies.?Difficulty laying flat?denies.?Dyspnea on exertion?denies.?Heart murmur?denies.?Orthopnea?denies.?Respiratory:?Snoring?denies.?Asthma?denies.?Cough?denies.?Shortness of breath with exertion?denies.?Sputum production?denies.?Wheezing?denies.?Gastrointestinal:?Change in bowel habits?denies.?Constipation?denies.?Decreased appetite?denies.?Diarrhea?denies.?Heartburn?denies.?Nausea?denies.?Vomiting?chey es.?Musculoskeletal:?tingling/numbness?Denies.?myalgias?Denies.?Joint Swelling?Denies.?extremeties?normal.?Patient complaining of?pain on left knee.?Arthritis?denies.?Back problems?denies.?Carpal tunnel?denies.?Joint stiffness?denies.?Muscle aches?denies.?Endocrine:?Bowel Changes?Denies.?Breast Discharge?Denies.?poor libido?Denies.?Cold intolerance?denies.?Excessive sweating?denies.?Excessive thirst?denies.?Frequent urination?denies.?Thyroid problems?denies.?Skin:?Bruising?Denies.?Eczema?denies.?Hair changes?denies.?Rash?denies.?Skin lesion(s)?denies.?Psychiatric:?Anxiety?denies.?Depressed mood?denies.?Difficulty sleeping?denies.?Nervous breakdown?denies.?Substance abuse?denies.?Urology:?abnormal menstrual bleeding?denies.?blood in urine?denies.?burning on urination?denies.?difficulty urinating?denies.?discharge?denies.?dysuria?denies.? * Medical History:? * Surgical History:?bone marro w transplant 1997cholecystectomy * Hospitalization/Major Diagno stic Procedure:? * Family History:?Father: dece ased 85 yrs, diagnosed with Heart Disease.?Mother: 75 yrs, diagnosed with Diabetes.? * Social History:?Tobacco Use:?Tobacco Use/Smoking?Are you a?nonsmoker ???Drugs/Alcohol:?Drugs?Have you used drugs other than those for medical reasons in the past 12 months??No ?Alcohol Screen (Audit-C)?Did you have a drink containing alcohol in the past year??No ?Points?0 ?Interpretation?Negative ???Miscellaneous:?Exercise: none. ?Marital status: . ?Occupation: Retired. * Medications:?TakingPantopraz ole Sodium 40 MG Tablet Delayed Release 1 tablet Orally as needed Prazosin HCl 1 MG Capsule 1 capsule at bedtime Orally Once a day Sertraline HCl 100 MG Tablet 1 tablet Orally Once a day Compression Stockings 15-20mmhg to wear daily for pedal edema and hx of DVT hydrOXYzine HCl 25 MG Tablet 1 tablet as needed Orally every 8 hrs Atorvastatin Calcium 40 MG Tablet TAKE 1 TABLET BY MOUTH EVERY DAY Allopurinol 300 MG Tablet TAKE 1 TABLET BY MOUTH EVERY DAY Eliquis 2.5 MG Tablet TAKE 1 TABLET BY MOUTH TWICE A DAY Orally Twice a day Taking Pantoprazole Sodium 40 MG Tablet Delayed Release 1 tablet Orally as needed Taking Prazosin HCl 1 MG Capsule 1 capsule at bedtime Orally Once a day Taking Sertraline HCl 100 MG Tablet 1 tablet Orally Once a day Taking Compression Stockings 15-20mmhg to wear daily for pedal edema and hx of DVT Taking hydrOXYzine HCl 25 MG Tablet 1 tablet as needed Orally every 8 hrs Taking Atorvastatin Calcium 40 MG Tablet TAKE 1 TABLET BY MOUTH EVERY DAY Taking Allopurinol 300 MG Tablet TAKE 1 TABLET BY MOUTH EVERY DAY Taking Eliquis 2.5 MG Tablet TAKE 1 TABLET BY MOUTH TWICE A DAY Orally Twice a day Not- TakingamLODIPine Besylate 5 MG Tablet TAKE 1 TABLET BY MOUTH EVERY DAY Losartan Potassium 25 MG Tablet TAKE 1 TABLET BY MOUTH EVERY DAY Shingrix 50 MCG/0.5ML Suspension Reconstituted as directed Intramuscular 1 Pneumovax 23 25 MCG/0.5ML Injectable as directed Injection 1 Ergocalciferol 91038 UNIT Capsule 1 capsule Orally once a week Omeprazole 20 MG Capsule Delayed Release 1 capsule Orally Once a day PARoxetine HCl 30 MG Tablet 1 tablet in the morning Orally Once a day Vitamin D (Ergocalciferol) 1.25 MG (60600 UT) Capsule TAKE 1 CAPSULE BY MOUTH EVERY WEEK Orally Once weekly Voltaren 1 % Gel as directed Transdermal bid Warfarin Sodium 5 MG Tablet 1 tablet Orally Once a day Warfarin Sodium 3 MG Tablet 1 tablet Orally Once a day Medication List reviewed and reconciled with the patientNot-Taking amLODIPine Besylate 5 MG Tablet TAKE 1 TABLET BY MOUTH EVERY DAY Not-Taking Losartan Potassium 25 MG Tablet TAKE 1 TABLET BY MOUTH EVERY DAY Not-Taking Shingrix 50 MCG/0.5ML Suspension Reconstituted as directed Intramuscular 1 Not-Taking Pneumovax 23 25 MCG/0.5ML Injectable as directed Injection 1 Not-Taking Ergocalciferol 46140 UNIT Capsule 1 capsule Orally once a week Not-Taking Omeprazole 20 MG Capsule Delayed Release 1 capsule Orally Once a day Not-Taking PARoxetine HCl 30 MG Tablet 1 tablet in the morning Orally Once a day Not-Taking Vitamin D (Ergocalciferol) 1.25 MG (10011 UT) Capsule TAKE 1 CAPSULE BY MOUTH EVERY WEEK Orally Once weekly Not-Taking Voltaren 1 % Gel as directed Transdermal bid Not-Taking Warfarin Sodium 5 MG Tablet 1 tablet Orally Once a day Not-Taking Warfarin Sodium 3 MG Tablet 1 tablet Orally Once a day Medication List reviewed and reconciled with the patient * Allergies:?N.K.D.A.no[Allerg ies Verified] Objective: * Vitals:?Temp:97.9F, Oxygen s at %:98%, HR:79/min, BP:152/76mm Hg, Wt:146lbs, BMI:27.35Index, Ht: 61.26 in. Standing- 124/72 Laying- 142/80. * Examination: ???General Examination: ?Psychiatry?Normal.?GENERAL APPEARANCE:?Well developed, well nourished, in no acute distress.?MUSCULOSKELETAL:?Normal.?HEAD:?Normocephalic, atraumatic.?EYES:?Pupils equal, round, reactive to light and accommodation, sclera non-icteric.?EARS:?Normal.?ORAL CAVITY:?Normal.?THROAT:?Clear.?OROPHARYNX?Normal.?SINUSES?Normal.?NECK/THYROID:?Neck supple, full range of motion, no cervical lymphadenopathy.?SKIN:?Warm and dry, no suspicious lesions.?HEART:?Normal.?LUNGS:?Normal.?BREASTS:?__.?ABDOMEN:?Soft, nontender, nondistended, bowel sounds present, normal.?EXTREMITIES:?reticular veins.?PERIPHERAL PULSES:?Normal.?NEUROLOGIC:?Nonfocal,? appropriate?motor strength normal upper and lower extremities, sensory exam intact.?FEMALE GENITOURINARY:?__.?MALE GENITOURINARY:?__.?PODIATRIC:?Normal.?Armature Winder? .? Assessment: * Assessment: 1.?Essential (primary) hyper tension - I10 (Primary)??? Mrs. Acevedo is a 68-year-old lady with hypertension, mixed hyperlipidemia, gout and CKD stage 3 and follows up with Dr. Herrera here for dizziness and blood pressure. Plan as follows Hypertension Orthostatic vital signs - Patient is positive for orthostatic. She has stopped taking amlodipine for the past 2 days and she has felt much better in terms of head pressure but she continues to endorse dizziness. She states that she had a 24 hour blood pressure monitor done at an [employer] office before work and it was normal by an office increase is most likely whitecoat syndrome. She states her blood pressure at home is usually in the 120 after she stopped taking the medication however with the medication it was 109-100 and that prompted her to stop the medication. I will follow up in 1 week and advised patient to do daily blood pressure measurements for now. - She has an upcoming CAT scan of the brain for dizziness, she also has a clinic appointment with nephrology May 05 which we will be getting a second opinion on the blood pressure for that. For now advised hydration, and reducing salt intake. I have rendered the services for this patient under direct supervision of Dr. Nunn, who did not see the patient but was available upon request Plan: * Treatment: * Procedure Codes:?3077F SYST BP = 140 MM HG6 [id number] DIAST BP < 80 MM HG * Follow Up:?1 Week-BP * * Sign off status: Completed true * Provider:?Stan Jensen Date:?04/15/20 24 Generated for Kady edwards/Jessica/Haleigh on:?08/17/2024 02:16 PM EST History and Physical Notes * HPI (History of Present Illness) Category Sub-Category Detail Notes Category Not es Internal Medicine Mrs. Portia madrigal is a 68-year-old lady with hypertension, mixed hyperlipidemia, gout and CKD stage 3 and follows up with Dr. Herrera here for dizziness and blood pressure. During the previous visit, orthostatic vital signs were positive and we have decreased her amlodipine from 5 mg to 2.5 mg. Patient states that while at home measuring her blood pressure she has noticed that has been running in the 100-109 systolic thoughts that she has stopped taking the medication. She noticed that after she stopped the medication she did not experience any head pressure but she continues to feel dizzy. She has an appointment coming up for CAT scan of the brain on April 30. Blood pressure is running high in the office today, she is still positive for orthostatics, I have discussed with the patient doing a 24-hour blood pressure monitor but she states that she had done not from a long time ago with Dr. Herrera and it was normal at home but high in the office .She has an appointment with nephrology May 05. Denies, CP, SOB, blurry vision, sweating, n/v, dysarthria. She denies any other active issues or concerns. Examination Category Sub-Category Detail Notes Category Not es General Examination GENERAL APPEARANCE: Well dev eloped, well nourished, in no acute distress HEAD: Normocephalic, atrau matic EYES: Pupils equal, round, reactive to light and accommodation, sclera non-icteric EARS: Normal THROAT: Clear NECK/THYROID: Neck supple, full ra nge of motion, no cervical lymphadenopathy HEART: Normal LUNGS: Normal ABDOMEN: Soft, nontender, non distended, bowel sounds present, normal NEUROLOGIC: Nonfocal, appropriat e motor strength normal upper and lower extremities, sensory exam intact SKIN: Warm and dry, no samantha picious lesions EXTREMITIES: reticular veins PERIPHERAL PULSES: Normal BREASTS: __ MUSCULOSKELETAL: Normal MALE GENITOURINARY: __ FEMALE GENITOURINARY: __ ORAL CAVITY: Normal PODIATRIC: Normal Psychiatry Normal OROPHARYNX Normal SINUSES Normal Armature Winder
--- OUTSIDE RECORDS SUMMARY | 2024-08-17 14:16 | XMS_ITS | Patient Health Record ---
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 Metabolic Panel ([id number] Reviewed date:01/24/2024 12:30:27 PM Interpretation: Performing Lab:[facility], [address] [facility], Phone - [phone], Director - Anusha Notes/Report: Glucose 89 70-99 mg/dL BUN 35 8-27 mg/dL Creatinine 1.37 0.57-1.00 mg/dL eGFR 42 >59 mL/min/1.73 BUN/Creatinine Ratio 26 12-28 Sodium 142 134-144 mmol/L Potassium 4.6 3.5-5.2 mmol/L Chloride 109 96-106 mmol/L Anion Gap 14.0 10.0-18.0 mmol/L Carbon Dioxide, Total 19 20-29 mmol/L Calcium 9.8 8.7-10.3 mg/dL Protein, Total 7.0 6.0-8.5 g/dL Albumin 4.2 3.9-4.9 g/dL Globulin, Total 2.8 1.5-4.5 g/dL Bilirubin, Total 0.3 0.0-1.2 mg/dL Alkaline Phosphatase 99 44-121 IU/L AST (SGOT) 19 0-40 IU/L ALT (SGPT) 12 0-32 IU/L LP+Non-HDL Cholesterol-[id number] Reviewed date:01/27/2024 02:07:16 PM Interpretation: Performing Lab:[facility], [address] [place] [address], Phone - [phone], Director - Anusha Notes/Report: Cholesterol, Total 223 100-199 mg/dL Triglycerides 250 0-149 mg/dL HDL Cholesterol 47 >39 mg/dL VLDL Cholesterol Mik 44 5-40 mg/dL LDL Chol Calc ([facility]) 132 0-99 mg/dL Non-HDL Cholesterol 176 0-129 mg/dL GGT-[id number] Reviewed date:01/24/2024 12:30:18 PM Interpretation: Performing Lab:[facility], [address] [place] [address], Phone - [phone], Director - Enmanuely Notes/Report: GGT 32 0-60 IU/L Uric Acid-[id number] Reviewed date:01/24/2024 12:30:20 PM Interpretation: Performing Lab:[facility], [address] [place] [address], Phone - [phone], Director - Anusha Notes/Report: Uric Acid 3.6 3.0-7.2 mg/dL Therapeutic ta rget for gout patients: <6.0 Comp. Metabolic Panel ([id number] Reviewed date:04/29/2024 02:37:30 PM Interpretation: Performing Lab:[facility], [address] [place] [address], Phone - [phone], Director - Anusha Notes/Report: Glucose 82 70-99 [...] 0-40 IU/L ALT (SGPT) 31 0-32 IU/L Reason For Referral Reason Please evaluate and treat Diagnosis 1 Pain in left knee (M 25.562) Diagnosis 2 Unilateral primary o steoarthritis, left knee (M17.12) Referral Organization [facility] Referring Provider First Name MAURER Referring Provider Last Name ARLINE Referring Provider Speciality Internal M edicine Referred Provider Specialty Orthopedic S urgery General Notes Referral faxed to [facility]. Please contact the patient to schedule., Farnaz Soto 02/10/2024 01:49:22 PM > Referral Priority Routine Reason please evaluate and treat Diagnosis 1 Osteoarthritis of kn ee, unspecified (M17.9) Referral Organization [facility] Referring Provider First Name Stan Referring Provider Last Name Camila Referred Provider Specialty Orthopedic S urgery General Notes Referral faxed to [facility]. Please contact the patient to schedule an appt., Farnaz Soto 04/06/2024 10:18:43 AM > Referral Priority Routine Medications Medication SIG (Take, Route, Frequency, Duration) Notes Start Date End Date Status Voltaren 1 % as directed Transder mal bid for 30 days 01/28/2020 Not-Taking Allopurinol 300 MG TAKE 1 TABLET BY PINA TH EVERY DAY for 90 Active Vitamin D (Ergocalciferol) 1.25 MG (87128 UT) TAKE 1 CAPSULE BY MOUTH EVERY WEEK Orally Once weekly for 30 days Not-Taking PARoxetine HCl 30 MG 1 tablet in the mor sandy Orally Once a day for 90 days Not-Taking Omeprazole 20 MG 1 capsule Orally Onc e a day for 90 days Not-Taking Ergocalciferol 49484 UNIT 1 capsule Oral ly once a week for 30 day(s) 05/07/2018 Not-Taking Pneumovax 23 25 MCG/0.5ML as directed In jection 1 for 362 days 04/25/2021 Not-Taking Shingrix 50 MCG/0.5ML as directed Intramuscular 1 for 365 days 04/25/2021 Not-Taking Losartan Potassium 25 MG TAKE 1 TABLET B Y MOUTH EVERY DAY for 90 Active Atorvastatin Calcium 40 MG TAKE 1 TABLET BY MOUTH EVERY DAY for 90 Active Warfarin Sodium 5 MG 1 tablet Orally Onc e a day for 30 day(s) Not-Taking Pantoprazole Sodium 40 MG 1 tablet Orall y as needed Active amLODIPine Besylate 5 MG TAKE 1 TABLET B Y MOUTH EVERY DAY for 90 days Not-Taking Eliquis 2.5 MG TAKE 1 TABLET BY PINA TH TWICE A DAY Orally Twice a day for 90 days Active Warfarin Sodium 3 MG 1 tablet Orally Onc e a day for 30 day(s) 08/15/2018 Not-Taking hydrOXYzine HCl 25 MG 1 tablet as needed Orally every 8 hrs for 90 days Active Compression Stockings 15-20mmhg to wear daily for pedal edema and hx of DVT for 30 05/07/2018 Active Sertraline HCl 100 MG 1 tablet Orally On ce a day Active Prazosin HCl 1 MG 1 capsule at bedtime Orally Once a day Active Immunizations Vaccine Route Administration Date Status Comme nts Influenza, high dose seasonal Unknown 04/27/2021 Admini stered Social History Tobacco Use: Social History Observation Description Date Details (start date - stop date) Never Smoker NA - NA Tobacco Use/Smoking Question Answer Notes Are you a nonsmoker Alcohol Screen (Audit-C) Question Answer Notes Did you have a drink containing alcohol in the p ast year? No Points 0 Interpretation Negative Problems Problem Type SNOMED Code ICD Code Onset Dates Problem Status W/U Status Risk Notes Problem Leukemia (44496874) Leukemia, unspecified not having achieved remission (C95.90) Active confirmed Problem Non-toxic single thyroid nodule (894169296) Nontoxic single thyroid nodule (E04.1) Active confirmed Problem Vitamin D deficiency (21631162) Vitamin D deficiency, unspecified (E55.9) Active confirmed Problem Mixed hyperlipidemia (330556780) Mixed hyperlipidemia (E78.2) Active confirmed Problem Moderate recurrent major depression (85029501) Major depressive disorder, recurrent, moderate (F33.1) Active confirmed Problem Generalized anxiety disorder (22609857) Generalized anxiety disorder (F41.1) Active confirmed Problem Embolism from thrombosis of vein of lower extremity (620164451) 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) Active confirmed Problem Acute deep venous thrombosis of left upper extremity (031358199847793) Acute embolism and thrombosis of deep veins of left upper extremity (I82.622) Active confirmed Problem Lymphedema (257676877) Lymphedema, not elsewhere classified (I89.0) Active confirmed Problem Gastro-esophageal reflux disease without esophagitis (522794766) Gastro-esophageal reflux disease without esophagitis (K21.9) Active confirmed Problem Chronic gouty arthritis (86117611) Chronic gout, unspecified, without tophus (tophi) (M1A.9XX0) Active confirmed Problem Osteoarthritis of knee (054023246) Unilateral primary osteoarthritis, left knee (M17.12) Active confirmed Problem Osteoarthritis of knee (892383675) Osteoarthritis of knee, unspecified (M17.9) Active confirmed Problem Age-related osteoporosis (386404744) Age-related osteoporosis without current pathological fracture (M81.0) Active confirmed Problem Chronic kidney disease stage 3 (disorder) (372026447) Chronic kidney disease, stage 3 (moderate) (N18.3) Active confirmed Problem Proteinuria (38840559) Proteinuria, unspecified (R80.9) Active confirmed Problem Essential hypertension (52733091) Essential (primary) hypertension (I10) Active confirmed Problem Chronic kidney disease stage 3A (disorder) (454628960) Chronic kidney disease, stage 3a (N18.31) Active confirmed Problem History of disease caused by Severe acute respiratory syndrome coronavirus 2 (situation) (8625636296463631 05) Personal history of COVID-19 (Z86.16) Active confirmed Vital Signs Heart Rate 83 /min 04/29/2024 Temperature 97.4 degrees Fahrenheit 04/29/2024 Blood pressure diastolic 70 mm Hg 04/29/2024 Oximetry 99 % 04/29/2024 Height 61.26 in 04/29/2024 Blood pressure systolic 160 mm Hg 04/29/2024 Weight 147.9 lbs 04/29/2024 BMI 27.71 kg/m2 04/29/2024 Encounters Encounter Location Date Provider Diagnosis [facility] [address] [place] [address] 02/21/2024 ERASTO NUNN [facility] [address] [place] [address] 01/27/2024 ERASTO NUNN Essential (primary) hypertension I10 ; Encounter for general adult medical examination without abnormal findings Z00.00 ; Mixed hyperlipidemia E78.2 ; Chronic kidney disease, stage 3 (moderate) N18.3 ; Chronic embolism and thrombosis of unspecified deep veins of unspecified lower extremity I82.509 ; Generalized anxiety disorder F41.1 ; Gastro-esophageal reflux disease without esophagitis K21.9 ; Chronic gout, unspecified, without tophus (tophi) M1A.9XX0 and Pain in left knee M25.[address] [place] [address] 02/12/2024 Ghadeer Mazloum Essential (primary) hypertension I10 ; Dizziness R42 and Orthostatic hypotension I95.[address] [place] [address] 04/01/2024 Ghadeer Mazloum Essential (primary) hypertension I10 ; Dizziness R42 ; Orthostatic hypotension I95.1 and Osteoarthritis of knee, unspecified M17.[address] [place] [address] 04/15/2024 Ghadeer Mazloum Essential (primary) hypertension I10 [address] [place] [address] 04/29/2024 Ghadeer Mazloum Essential (primary) hypertension I10 [address] [place] [address] 02/10/[address] [place] [address] 02/12/[address] [place] [address] 03/31/[address] [place] [address] 04/08/[address] [place] [address] 04/20/2024 [facility] Assessments Encounter Date Diagnosis (ICD Code) Assessment Notes Treatment Notes Treatment Clinical Notes Section Notes 02/12/2024 Essential (primary) hypertension (ICD-10 - I10) Mrs. Acevedo is a 68-year-old lady with hypertension, mixed hyperlipidemia, gout and CKD stage [address] follows up with Dr. Herrera here for Dizziness. Plan is as follows: Dizziness: HTN - Ongoing for the past two months. Orthostatic vital signs are remarkable for: sitting 132/72, laying 138/42, and standing 134/64. States that she has been told by her health science instructor to cut down on Amlodipine from 10 to 5mg and she has been taking 10mg, she has not yet adjusted the medication. I advised the patient on decreasing the medication to 5mg and we will follow-up in 1 week. As for now, she should continue monitoring her BP and inform us, if it elevates systolic above 140 or diastolic above 90. - Per record review, Heme/onc adjusted eliquis to 2.5 BID. - No CP, SOB, blurry vision, weakness, dysarthria. PE is unremarkable for focal neurodeficit r/o acute neurlogical abnormality. However, given the duration of ongoing Dizziness and constant pressure in the head for the past two months, I ordered CT without contrast initially. - I will also check for anemia given her history of CKD stage3. DVT on Eliquis 5mg: - She states that she was told, to be on 2.5 mg twice a day . I reviewed the records/notes did not find any encounter regarding decreasing the Eliquis. Resumed her back on 5mg BID. I have rendered the services for this patient under direct supervision of Dr. Nunn, who did not see the patient but was available upon request 02/12/2024 Dizziness (ICD-10 - R42) Mrs. Acevedo is a 68-year-old lady with hypertension, mixed hyperlipidemia, gout and CKD stage 3 and follows up with Dr. Herrera here for Dizziness. Plan is as follows: Dizziness: HTN - Ongoing for the past two months. Orthostatic vital signs are remarkable for: sitting 132/72, laying 138/42, and standing 134/64. States that she has been told by her health science instructor to cut down on Amlodipine from 10 to 5mg and she has been taking 10mg, she has not yet adjusted the medication. I advised the patient on decreasing the medication to 5mg and we will follow-up in 1 week. As for now, she should continue monitoring her BP and inform us, if it elevates systolic above 140 or diastolic above 90. - Per record review, Heme/onc adjusted eliquis to 2.5 BID. - No CP, SOB, blurry vision, weakness, dysarthria. PE is unremarkable for focal neurodeficit r/o acute neurlogical abnormality. However, given the duration of ongoing Dizziness and constant pressure in the head for the past two months, I ordered CT without contrast initially. - I will also check for anemia given her history of CKD stage3. DVT on Eliquis 5mg: - She states that she was told, to be on 2.5 mg twice a day . I reviewed the records/notes did not find any encounter regarding decreasing the Eliquis. Resumed her back on 5mg BID. I have rendered the services for this patient under direct supervision of Dr. Nunn, who did not see the patient but was available upon request 04/01/2024 Essential (primary) hypertension (ICD-10 - I10) Mrs. Acevedo is a 68-year-old lady with hypertension, mixed hyperlipidemia, gout and CKD stage 3 and follows up with Dr. Herrera here for Dizziness. Plan is as follows: Dizziness: HTN - Started on Saturday. Lasts for seconds. Negative Omar-hillpike, no neurodeficit. Orthostatic vital signs are remarkable for: sitting 130/64 HR 77, laying 146/80 and standing 122/70 HR of 92. Decrease amlodipine to 2.5mg. Hydration advised. - We will still proceed with CT scan and CBC workup. I have rendered the services for this patient under direct supervision of Dr. Nunn, who did not see the patient but was available upon request 04/01/2024 Dizziness (ICD-10 - R42) Mrs. Acevedo is a 68-year-old lady with hypertension, mixed hyperlipidemia, gout and CKD stage 3 and follows up with Dr. Herrera here for Dizziness. Plan is as follows: Dizziness: HTN - Started on Saturday. Lasts for seconds. Negative Buxton-hillpike, no neurodeficit. Orthostatic vital signs are remarkable for: sitting 130/64 HR 77, laying 146/80 and standing 122/70 HR of 92. Decrease amlodipine to 2.5mg. Hydration advised. - We will still proceed with CT scan and CBC workup. I have rendered the services for this patient under direct supervision of Dr. Nunn, who did not see the patient but was available upon request 04/15/2024 Essential (primary) hypertension (ICD-10 - I10) [...] the patient but was available upon request 04/29/2024 Essential (primary) hypertension (ICD-10 - I10) Mrs. Acevedo is a 68-year-old lady with hypertension, mixed hyperlipidemia, gout and CKD stage 3 and follows up with Dr[address] Herrera is here for BP check.Plan as follows: HTN: - BP at home is WNL. She had a 24-hour BP monitor with Nephrology and it was WNL. She has White coat syndrome. Advised on avoiding soda and instead drink water as previous labs shows signs of dehydration. Dehydration leads to feeling dizziness. She can also add electrolyte into the regimen. I have rendered the services for this patient under direct supervision of Dr. Nunn, who did not see the patient but was available upon request 01/27/2024 Encounter for general adult medical examination without abnormal findings (ICD-10 - Z00.00) Mrs. Acevedo is a 68-year-old lady with hypertension, mixed hyperlipidemia, gout and CKD stage 3 and follows up with Dr. Herrera here for annual physical. Plan is as follows: Hypertension with chronic kidney disease. Her blood pressure was running high and repeat blood pressure was normal. Continue amlodipine 5 MG daily. Advised appropriate hydration. EKG is normal sinus rhythm at 76 bpm with no acute ST or T wave changes, no bundle branch blocks, normal intervals. Hyperlipidemia. Total cholesterol 223. Triglycerides 250, VLDL 44. LDL 132 Non HDL 176, which were all high. Continue Atorvastatin 40 MG at night. Advised to take fish oil pills 3000 IU daily. Gout. Stable on Allopurinol 300 MG daily. Chronic kidney disease stage 3. She does not appear to be in volume overload. Advised appropriate hydration. Avoid NSAIDs. She follows up with Dr. Herrera. Generalized anxiety/Major depressive disorder. Mood stable on current regimen. She goes to [facility]. DVT. Continue Eliquis 5 MG twice a day. Abnormal results of Pain in left knee. Ordered x-ray of the left knee Overweight. She lost 2.5 lbs since last visit. Advised dietary restrictions and regimental exercise. Goal is to lose 5-6 lbs a month. Eye screening. She sees her production pattern maker regularly. Dental screening. She sees dentist regularly. Breast cancer screening. She is up-to-date on her mammogram. Osteoporosis screening. She is up to date on BMD. Colon cancer screening. She had her a cologuard done in 2020. Immunizations. She is up-to-date on her COVID, pneumonia, infkuenza, and shingles vaccinations. Advance directive. She is on full code and her HCP is her daughter Screening blood work before next appointment. General health concerns discussed with patient. Scribe services used to formulate this note under HIPAA compliance and under [place] law mandated for scribe services. Patient aware of service. Verbal consent and written consent taken from the patient. Patient understands and verbalizes understanding of the scribes services and all questions answered regarding scribes services. Patient agrees to use of scribes services. 01/27/2024 Essential (primary) hypertension (ICD-10 - I10) Mrs. Acevedo is a 68-year-old lady with hypertension, mixed hyperlipidemia, gout and CKD stage [address] and follows up with Dr. Herrera here for annual physical. Plan is as follows: Hypertension with chronic kidney disease. Her blood pressure was running high and repeat blood pressure was normal. Continue amlodipine 5 MG daily. Advised appropriate hydration. EKG is normal sinus rhythm at 76 bpm with no acute ST or T wave changes, no bundle branch blocks, normal intervals. Hyperlipidemia. Total cholesterol 223. Triglycerides 250, VLDL 44. LDL 132 Non HDL 176, which were all high. Continue Atorvastatin 40 MG at night. Advised to take fish oil pills 3000 IU daily. Gout. Stable on Allopurinol 300 MG daily. Chronic kidney disease stage 3. She does not appear to be in volume overload. Advised appropriate hydration. Avoid NSAIDs. She follows up with Dr. Herrera. Generalized anxiety/Major depressive disorder. Mood stable on current regimen. She goes to [facility]. DVT. Continue Eliquis 5 MG twice a day. Abnormal results of Pain in left knee. Ordered x-ray of the left knee Overweight. She lost 2.5 lbs since last visit. Advised dietary restrictions and regimental exercise. Goal is to lose 5-6 lbs a month. Eye screening. She sees her production pattern maker regularly. Dental screening. She sees dentist regularly. Breast cancer screening. She is up-to-date on her mammogram. Osteoporosis screening. She is up to date on BMD. Colon cancer screening. She had her a cologuard done in 2020. Immunizations. She is up-to-date on her COVID, pneumonia, infkuenza, and shingles vaccinations. Advance directive. She is on full code and her HCP is her daughter Screening blood work before next appointment. General health concerns discussed with patient. Scribe services used to formulate this note under HIPAA compliance and under [place] law mandated for scribe services. Patient aware of service. Verbal consent and written consent taken from the patient. Patient understands and verbalizes understanding of the scribes services and all questions answered regarding scribes services. Patient agrees to use of scribes services. 01/27/2024 Mixed hyperlipidemia (ICD-10 - E78.2) Mrs. Acevedo is a 68-year-old lady with hypertension, mixed hyperlipidemia, gout and CKD stage [address] and follows up with Dr. Herrera here for annual physical. Plan is as follows: Hypertension with chronic kidney disease. Her blood pressure was running high and repeat blood pressure was normal. Continue amlodipine 5 MG daily. Advised appropriate hydration. EKG is normal sinus rhythm at 76 bpm with no acute ST or T wave changes, no bundle branch blocks, normal intervals. Hyperlipidemia. Total cholesterol 223. Triglycerides 250, VLDL 44. LDL 132 Non HDL 176, which were all high. Continue Atorvastatin 40 MG at night. Advised to take fish oil pills 3000 IU daily. Gout. Stable on Allopurinol 300 MG daily. Chronic kidney disease stage 3. She does not appear to be in volume overload. Advised appropriate hydration. Avoid NSAIDs. She follows up with Dr. Herrera. Generalized anxiety/Major depressive disorder. Mood stable on current regimen. She goes to [facility]. DVT. Continue Eliquis 5 MG twice a day. Abnormal results of Pain in left knee. Ordered x-ray of the left knee Overweight. She lost 2.5 lbs since last visit. Advised dietary restrictions and regimental exercise. Goal is to lose 5-6 lbs a month. Eye screening. She sees her production pattern maker regularly. Dental screening. She sees dentist regularly. Breast cancer screening. She is up-to-date on her mammogram. Osteoporosis screening. She is up to date on BMD. Colon cancer screening. She had her a cologuard done in 2020. Immunizations. She is up-to-date on her COVID, pneumonia, infkuenza, and shingles vaccinations. Advance directive. She is on full code and her HCP is her daughter Screening blood work before next appointment. General health concerns discussed with patient. Scribe services used to formulate this note under HIPAA compliance and under [place] law mandated for scribe services. Patient aware of service. Verbal consent and written consent taken from the patient. Patient understands and verbalizes understanding of the scribes services and all questions answered regarding scribes services. Patient agrees to use of scribes services. 04/01/2024 Orthostatic hypotension (ICD-10 - I95.1) Mrs. Acevedo is a 68-year-old lady with hypertension, mixed hyperlipidemia, gout and CKD stage 3 and follows up with Dr. Herrera here for Dizziness. Plan is as follows: Dizziness: HTN - Started on Saturday. Lasts for seconds. Negative Omar-hillpike, no neurodeficit. Orthostatic vital signs are remarkable for: sitting 130/64 HR 77, laying 146/80 and standing 122/70 HR of 92. Decrease amlodipine to 2.5mg. Hydration advised. - We will still proceed with CT scan and CBC workup. I have rendered the services for this patient under direct supervision of Dr. Nunn, who did not see the patient but was available upon request 02/12/2024 Orthostatic hypotension (ICD-10 - I95.1) Mrs. Acevedo is a 68-year-old lady with hypertension, mixed hyperlipidemia, gout and CKD stage 3 and follows up with Dr. Herrera here for Dizziness. Plan is as follows: Dizziness: HTN - Ongoing for the past two months. Orthostatic vital signs are remarkable for: sitting 132/72, laying 138/42, and standing 134/64. States that she has been told by her health science instructor to cut down on Amlodipine from 10 to 5mg and she has been taking 10mg, she has not yet adjusted the medication. I advised the patient on decreasing the medication to 5mg and we will follow-up in 1 week. As for now, she should continue monitoring her BP and inform us, if it elevates systolic above 140 or diastolic above 90. - Per record review, Heme/onc adjusted eliquis to 2.5 BID. - No CP, SOB, blurry vision, weakness, dysarthria. PE is unremarkable for focal neurodeficit r/o acute neurlogical abnormality. However, given the duration of ongoing Dizziness and constant pressure in the head for the past two months, I ordered CT without contrast initially. - I will also check for anemia given her history of CKD stage3. DVT on Eliquis 5mg: - She states that she was told, to be on 2.5 mg twice a day . I reviewed the records/notes did not find any encounter regarding decreasing the Eliquis. Resumed her back on 5mg BID. I have rendered the services for this patient under direct supervision of Dr. Nunn, who did not see the patient but was available upon request 04/01/2024 Osteoarthritis of knee, unspecified (ICD-10 - M17.9) Mrs. Acevedo is a 68-year-old lady with hypertension, mixed hyperlipidemia, gout and CKD stage [address] follows up with Dr[address] Herrera here for Dizziness. Plan is as follows: Dizziness: HTN - Started on Saturday. Lasts for seconds. Negative Omar-hillpike, no neurodeficit. Orthostatic vital signs are remarkable for: sitting 130/64 HR 77, laying 146/80 and standing 122/70 HR of 92. Decrease amlodipine to 2.5mg. Hydration advised. - We will still proceed with CT scan and CBC workup. I have rendered the services for this patient under direct supervision of Dr. Nunn, who did not see the patient but was available upon request 01/27/2024 Chronic kidney disease, stage 3 (moderate) (ICD-10 - N18.3) Mrs. Acevedo is a 68-year-old lady with hypertension, mixed hyperlipidemia, gout and CKD stage [address] follows up with Dr. Herrera here for annual physical. Plan is as follows: Hypertension with chronic kidney disease. Her blood pressure was running high and repeat blood pressure was normal. Continue amlodipine 5 MG daily. Advised appropriate hydration. EKG is normal sinus rhythm at 76 bpm with no acute ST or T wave changes, no bundle branch blocks, normal intervals. Hyperlipidemia. Total cholesterol 223. Triglycerides 250, VLDL 44. LDL 132 Non HDL 176, which were all high. Continue Atorvastatin 40 MG at night. Advised to take fish oil pills 3000 IU daily. Gout. Stable on Allopurinol 300 MG daily. Chronic kidney disease stage 3. She does not appear to be in volume overload. Advised appropriate hydration. Avoid NSAIDs. She follows up with Dr. Herrera. Generalized anxiety/Major depressive disorder. Mood stable on current regimen. She goes to [facility]. DVT. Continue Eliquis 5 MG twice a day. Abnormal results of Pain in left knee. Ordered x-ray of the left knee Overweight. She lost 2.5 lbs since last visit. Advised dietary restrictions and regimental exercise. Goal is to lose 5-6 lbs a month. Eye screening. She sees her production pattern maker regularly. Dental screening. She sees dentist regularly. Breast cancer screening. She is up-to-date on her mammogram. Osteoporosis screening. She is up to date on BMD. Colon cancer screening. She had her a cologuard done in 2020. Immunizations. She is up-to-date on her COVID, pneumonia, infkuenza, and shingles vaccinations. Advance directive. She is on full code and her HCP is her daughter Screening blood work before next appointment. General health concerns discussed with patient. Scribe services used to formulate this note under HIPAA compliance and under [place] law mandated for scribe services. Patient aware of service. Verbal consent and written consent taken from the patient. Patient understands and verbalizes understanding of the scribes services and all questions answered regarding scribes services. Patient agrees to use of scribes services. 01/27/2024 Chronic embolism and thrombosis of unspecified deep veins of unspecified lower extremity (ICD-10 - I82.509) Mrs. Acevedo is a 68-year-old lady with hypertension, mixed hyperlipidemia, gout and CKD stage 3 and follows up with Dr. Herrera here for annual physical. Plan is as follows: Hypertension with chronic kidney disease. Her blood pressure was running high and repeat blood pressure was normal. Continue amlodipine 5 MG daily. Advised appropriate hydration. EKG is normal sinus rhythm at 76 bpm with no acute ST or T wave changes, no bundle branch blocks, normal intervals. Hyperlipidemia. Total cholesterol 223. Triglycerides 250, VLDL 44. LDL 132 Non HDL 176, which were all high. Continue Atorvastatin 40 MG at night. Advised to take fish oil pills 3000 IU daily. Gout. Stable on Allopurinol 300 MG daily. Chronic kidney disease stage 3. She does not appear to be in volume overload. Advised appropriate hydration. Avoid NSAIDs. She follows up with Dr. Herrera. Generalized anxiety/Major depressive disorder. Mood stable on current regimen. She goes to [facility]. DVT. Continue Eliquis 5 MG twice a day. Abnormal results of Pain in left knee. Ordered x-ray of the left knee Overweight. She lost 2.5 lbs since last visit. Advised dietary restrictions and regimental exercise. Goal is to lose 5-6 lbs a month. Eye screening. She sees her production pattern maker regularly. Dental screening. She sees dentist regularly. Breast cancer screening. She is up-to-date on her mammogram. Osteoporosis screening. She is up to date on BMD. Colon cancer screening. She had her a cologuard done in 2020. Immunizations. She is up-to-date on her COVID, pneumonia, infkuenza, and shingles vaccinations. Advance directive. She is on full code and her HCP is her daughter Screening blood work before next appointment. General health concerns discussed with patient. Scribe services used to formulate this note under HIPAA compliance and under [place] law mandated for scribe services. Patient aware of service. Verbal consent and written consent taken from the patient. Patient understands and verbalizes understanding of the scribes services and all questions answered regarding scribes services. Patient agrees to use of scribes services. 01/27/2024 Generalized anxiety disorder (ICD-10 - F41.1) Mrs. Acevedo is a 68-year-old lady with hypertension, mixed hyperlipidemia, gout and CKD stage [address] and follows up with Dr. Herrera here for annual physical. Plan is as follows: Hypertension with chronic kidney disease. Her blood pressure was running high and repeat blood pressure was normal. Continue amlodipine 5 MG daily. Advised appropriate hydration. EKG is normal sinus rhythm at 76 bpm with no acute ST or T wave changes, no bundle branch blocks, normal intervals. Hyperlipidemia. Total cholesterol 223. Triglycerides 250, VLDL 44. LDL 132 Non HDL 176, which were all high. Continue Atorvastatin 40 MG at night. Advised to take fish oil pills 3000 IU daily. Gout. Stable on Allopurinol 300 MG daily. Chronic kidney disease stage 3. She does not appear to be in volume overload. Advised appropriate hydration. Avoid NSAIDs. She follows up with Dr. Herrera. Generalized anxiety/Major depressive disorder. Mood stable on current regimen. She goes to [facility]. DVT. Continue Eliquis 5 MG twice a day. Abnormal results of Pain in left knee. Ordered x-ray of the left knee Overweight. She lost 2.5 lbs since last visit. Advised dietary restrictions and regimental exercise. Goal is to lose 5-6 lbs a month. Eye screening. She sees her production pattern maker regularly. Dental screening. She sees dentist regularly. Breast cancer screening. She is up-to-date on her mammogram. Osteoporosis screening. She is up to date on BMD. Colon cancer screening. She had her a cologuard done in 2020. Immunizations. She is up-to-date on her COVID, pneumonia, infkuenza, and shingles vaccinations. Advance directive. She is on full code and her HCP is her daughter Screening blood work before next appointment. General health concerns discussed with patient. Scribe services used to formulate this note under HIPAA compliance and under [place] law mandated for scribe services. Patient aware of service. Verbal consent and written consent taken from the patient. Patient understands and verbalizes understanding of the scribes services and all questions answered regarding scribes services. Patient agrees to use of scribes services. 01/27/2024 Gastro-esophageal reflux disease without esophagitis (ICD-10 - K21.9) Mrs. Acevedo is a 68-year-old lady with hypertension, mixed hyperlipidemia, gout and CKD stage 3 and follows up with Dr. Herrera here for annual physical. Plan is as follows: Hypertension with chronic kidney disease. Her blood pressure was running high and repeat blood pressure was normal. Continue amlodipine 5 MG daily. Advised appropriate hydration. EKG is normal sinus rhythm at 76 bpm with no acute ST or T wave changes, no bundle branch blocks, normal intervals. Hyperlipidemia. Total cholesterol 223. Triglycerides 250, VLDL 44. LDL 132 Non HDL 176, which were all high. Continue Atorvastatin 40 MG at night. Advised to take fish oil pills 3000 IU daily. Gout. Stable on Allopurinol 300 MG daily. Chronic kidney disease stage 3. She does not appear to be in volume overload. Advised appropriate hydration. Avoid NSAIDs. She follows up with Dr. Herrera. Generalized anxiety/Major depressive disorder. Mood stable on current regimen. She goes to [facility]. DVT. Continue Eliquis 5 MG twice a day. Abnormal results of Pain in left knee. Ordered x-ray of the left knee Overweight. She lost 2.5 lbs since last visit. Advised dietary restrictions and regimental exercise. Goal is to lose 5-6 lbs a month. Eye screening. She sees her production pattern maker regularly. Dental screening. She sees dentist regularly. Breast cancer screening. She is up-to-date on her mammogram. Osteoporosis screening. She is up to date on BMD. Colon cancer screening. She had her a cologuard done in 2020. Immunizations. She is up-to-date on her COVID, pneumonia, infkuenza, and shingles vaccinations. Advance directive. She is on full code and her HCP is her daughter Screening blood work before next appointment. General health concerns discussed with patient. Scribe services used to formulate this note under HIPAA compliance and under [place] law mandated for scribe services. Patient aware of service. Verbal consent and written consent taken from the patient. Patient understands and verbalizes understanding of the scribes services and all questions answered regarding scribes services. Patient agrees to use of scribes services. 01/27/2024 Chronic gout, unspecified, without tophus (tophi) (ICD-10 - M1A.9XX0) Mrs. Acevedo is a 68-year-old lady with hypertension, mixed hyperlipidemia, gout and CKD stage [address] and follows up with Dr. Herrera here for annual physical. Plan is as follows: Hypertension with chronic kidney disease. Her blood pressure was running high and repeat blood pressure was normal. Continue amlodipine 5 MG daily. Advised appropriate hydration. EKG is normal sinus rhythm at 76 bpm with no acute ST or T wave changes, no bundle branch blocks, normal intervals. Hyperlipidemia. Total cholesterol 223. Triglycerides 250, VLDL 44. LDL 132 Non HDL 176, which were all high. Continue Atorvastatin 40 MG at night. Advised to take fish oil pills 3000 IU daily. Gout. Stable on Allopurinol 300 MG daily. Chronic kidney disease stage 3. She does not appear to be in volume overload. Advised appropriate hydration. Avoid NSAIDs. She follows up with Dr. Herrera. Generalized anxiety/Major depressive disorder. Mood stable on current regimen. She goes to [facility]. DVT. Continue Eliquis 5 MG twice a day. Abnormal results of Pain in left knee. Ordered x-ray of the left knee Overweight. She lost 2.5 lbs since last visit. Advised dietary restrictions and regimental exercise. Goal is to lose 5-6 lbs a month. Eye screening. She sees her production pattern maker regularly. Dental screening. She sees dentist regularly. Breast cancer screening. She is up-to-date on her mammogram. Osteoporosis screening. She is up to date on BMD. Colon cancer screening. She had her a cologuard done in 2020. Immunizations. She is up-to-date on her COVID, pneumonia, infkuenza, and shingles vaccinations. Advance directive. She is on full code and her HCP is her daughter Screening blood work before next appointment. General health concerns discussed with patient. Scribe services used to formulate this note under HIPAA compliance and under [place] law mandated for scribe services. Patient aware of service. Verbal consent and written consent taken from the patient. Patient understands and verbalizes understanding of the scribes services and all questions answered regarding scribes services. Patient agrees to use of scribes services. 01/27/2024 Pain in left knee (ICD-10 - M25.562) Mrs. Acevedo is a 68-year-old lady with hypertension, mixed hyperlipidemia, gout and CKD stage 3 and follows up with Dr. Herrera here for annual physical. Plan is as follows: Hypertension with chronic kidney disease. Her blood pressure was running high and repeat blood pressure was normal. Continue amlodipine 5 MG daily. Advised appropriate hydration. EKG is normal sinus rhythm at 76 bpm with no acute ST or T wave changes, no bundle branch blocks, normal intervals. Hyperlipidemia. Total cholesterol 223. Triglycerides 250, VLDL 44. LDL 132 Non HDL 176, which were all high. Continue Atorvastatin 40 MG at night. Advised to take fish oil pills 3000 IU daily. Gout. Stable on Allopurinol 300 MG daily. Chronic kidney disease stage 3. She does not appear to be in volume overload. Advised appropriate hydration. Avoid NSAIDs. She follows up with Dr. Herrera. Generalized anxiety/Major depressive disorder. Mood stable on current regimen. She goes to [facility]. DVT. Continue Eliquis 5 MG twice a day. Abnormal results of Pain in left knee. Ordered x-ray of the left knee Overweight. She lost 2.5 lbs since last visit. Advised dietary restrictions and regimental exercise. Goal is to lose 5-6 lbs a month. Eye screening. She sees her production pattern maker regularly. Dental screening. She sees dentist regularly. Breast cancer screening. She is up-to-date on her mammogram. Osteoporosis screening. She is up to date on BMD. Colon cancer screening. She had her a cologuard done in 2020. Immunizations. She is up-to-date on her COVID, pneumonia, infkuenza, and shingles vaccinations. Advance directive. She is on full code and her HCP is her daughter Screening blood work before next appointment. General health concerns discussed with patient. Scribe services used to formulate this note under HIPAA compliance and under [place] law mandated for scribe services. Patient aware of service. Verbal consent and written consent taken from the patient. Patient understands and verbalizes understanding of the scribes services and all questions answered regarding scribes services. Patient agrees to use of scribes services. 02/21/2024 Both bloo d pressures were reviewed by provider and patient was advised to continue current dose. Plan Of Treatment Pending Test Test Name Order Date CT Scan : Head, without contrast 024 X ray : Knee, left 2 views 01/27/2024 Comp. Metabolic Panel (14) 08/26/2018 MAMMOGRAM, SCREENING 01/28/2020 Prothrombin Time with INR (PT/INR) 05/29 Prothrombin Time with INR (PT/INR) 04/10 Prothrombin Time with INR (PT/INR) 09/22 Basic Metabolic Panel 10/31/2018 Lipid Panel 08/26/2018 Urine Microalbumin (Random) 08/26/2018 Iron and [id number] 02/12/2024 Ferritin-[id number] 02/12/2024 CBC With Differential/[id number] Next Appt Details Provider Name:Stan Nelly dumont, 08/25/2024 01:30:00 PM, [address] [place] [address], [place], [address], Insurance Providers Payer Name Payer Address Payer Phone Subscriber Number Group Number Insured Name Patient Relationship to Insured Coverage Start Date Coverage End Date [facility] [address] [place] [id number] Christy Acevedo Self - patient is the insured Medical (General) History Medical History History ICD Code hypertension, benign hyperlipidemia acid reflux gout Anxiety disorder- at [facility] DVT -LE CKD Stage 3 Leukema in remission and see Dr Gordo espinal [facility] Major depression 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
--- OUTSIDE RECORDS SUMMARY | 2024-08-17 14:16 | XMS_ITS | Clinical Summary ---
Author Organization [employer] [facility] ity Address [address] [place] [address] Care Team Providers Care Customer Solutions Representative Name Role Phone Leighann Mcgrath MD Primary Care Provider [phone] Social History Tobacco Use Types Packs/Day Years Used Date Smoking Tobacco: Never Smokeless Tobacco: Never Alcohol Use Standard Drinks/Week Comments Never 0 (1 standard drink = 0.6 oz pur e alcohol) Comments Unknown Sex and Gender Information Value Date Recorded Sex Assigned at Not on file Legal Sex Female 2:27 AM EST Gender Identity Not on file Sexual Orientation Not on file Obstetrics History Last Filed Vital Signs Vital Sign Reading Time Taken Comments Blood Pressure 153/71 04/24/2022 2:25 PM EST Sit ting Left arm Pulse 82 04/24/2022 2:25 PM EST Temperature - - Respiratory Rate - - Oxygen Saturation - - Inhaled Oxygen Concentration - - Weight 72.1 kg (159 lb) 02/06/2023 1:44 PM EDT Height 157.5 cm (5' 2 ) 02/06/2023 1:44 PM EDT Body Mass Index 29.08 02/06/2023 1:44 PM EDT Plan of Treatment Health Maintenance Due Date Last Done Comments Breast Cancer Screening 1955 COVID-19 Vaccine (#1) 1961 DTaP,Tdap,and Td Vaccines (1 - Tdap) 08/23/1975 Pneumococcal Vaccine: 50+ Ye ars (1 of 2 - PCV) 08/23/1975 Zoster Vaccines (1 of 2) 08/23/1975 RSV Immunization Patients 60 + Years Old (1 - Risk 60-74 years 1-dose series) 2016 Cholesterol Screening (Lipid Panel) 05/20/2022 Colorectal Cancer Screening: Colonoscopy 05/20/2022 Depression Screening 05/20/2022 Falls Risk Assessment 05/20/2022 Hepatitis C Screening 05/20/2022 Medicare Annual Wellness Visit 05/20/2022 Osteoporosis Screening (Bone Density Screening) 05/20/2022 Social Influencers of Health Screening 05/20/2022 Influenza Vaccine (#1) 2024 HIB Vaccines Aged Out No longer eligi ble based on patient's age to complete this topic HPV Vaccines Aged Out No longer eligi ble based on patient's age to complete this topic Hepatitis A Vaccines Aged Out No long er eligible based on patient's age to complete this topic Hepatitis B Vaccines Aged Out No long er eligible based on patient's age to complete this topic IPV Vaccines Aged Out No longer eligi ble based on patient's age to complete this topic MMR Vaccines Aged Out No longer eligi ble based on patient's age to complete this topic Meningococcal ACWY Vaccine Aged Out N o longer eligible based on patient's age to complete this topic Meningococcal B Vacine Aged Out No lo nger eligible based on patient's age to complete this topic RSV Immunization Patients Un koko 20 months Aged Out No longer eligible b ased on patient's age to complete this topic Varicella Vaccines Aged Out No longer eligible based on patient's age to complete this topic Care Teams Customer Solutions Representative Relationship Specialty Start Date End Date Leighann Mcgrath MD [address] [place] [address] PCP - General 05/19/21
--- OUTSIDE RECORDS SUMMARY | 2024-08-17 14:16 | XMS_ITS | Clinical Summary ---
Author Organization [facility] Address [address] [facility] [address] [place] [address] Phone Care Team Providers Care Detective Investigator Name Role Phone Leighann Mcgrath MD Primary Care Provider [phone] Allergies No known active allergies Medications allopurinol (ZYLOPRIM) 300 MG tablet Take 1 tablet by mouth 1 (one) time each day Active amLODIPine (NORVASC) 10 MG tablet Take 1 tablet by mouth 1 (one) time each day Active atorvastatin (LIPITOR) 40 MG tablet Take 1 tablet by mouth 1 (one) time each day Active hydrOXYzine (ATARAX) 25 MG tablet Take 1 tablet by mouth 3 (three) times a day Active sertraline (ZOLOFT) 100 MG tablet Take 1 tablet by mouth 1 (one) time each day 03/23/2021 Active prazosin (MINIPRESS) 1 MG capsule Take 1 capsule by mouth 1 (one) time each day 03/23/2021 Active losartan (COZAAR) 25 MG tablet Take 25 mg by mouth 1 (one) time each day 07/03/2021 Active apixaban (ELIQUIS) 5 MG tablet Take 5 mg by mouth in the morning and 5 mg in the evening. 01/03/2023 Active Active Problems Problem Noted Date Diagnosed Date Osteoarthritis of knee 03/05/2022 Hypertension 05/29/2021 Stage 3a chronic kidney disease 09/27/2020 Edema 09/27/2020 Essential hypertension 09/27/2020 Hypertensive heart and renal disease with (congestive) heart failure 09/27/2020 Proteinuria 09/27/2020 Vitamin D deficiency 09/27/2020 Resolved Problems Problem Noted Date Diagnosed Date Resolved Date Arthralgia of the lower leg 07/24/2021 07/24/2021 Body mass index (BMI) 60.0-69.9, adult 07/24/2021 07/24/2021 Acute deep venous thrombosis of left upper extremity 09/27/2020 09/27/2020 Cough 09/27/2020 09/27/2020 Generalized anxiety disorder 09/27/2020 09/27/2020 Lymphedema 09/27/2020 09/27/2020 Moderate recurrent major depression 09/27/2020 09/27/2020 Non-toxic uninodular goiter 09/27/2020 09/27/2020 Pain in right knee 09/27/2020 Acute deep venous thrombosis of left femoral vein 02/28/2018 09/27/2020 Overview (09/27/2020): [facility] (03/18/18): anticoagulation for 3-6 months Chronic gouty arthritis 07/05/201709/15 Dysphagia 07/05/2017 09/27/2020 Gastro-esophageal reflux dis ease without esophagitis 07/05/2017 09/27/2020 Overview (09/27/2020): Since ~2014 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 Hyperlipidemia 07/05/2017 09/27/2020 Immunizations Name Administration Dates Next Due Influenza Split High Dose Preservative Free IM 1 06/27/2020 Family History Medical History Relation Comments Heart disease Father Diabetes Mother Relation Status Comments Father Mother Social History Tobacco Use Types Packs/Day Years Used Date Smoking Tobacco: Never Smokeless Tobacco: Never Tobacco Cessation:Counseling Given: Not Answered Alcohol Use Standard Drinks/Week Comments Yes 0 (1 standard drink = 0.6 oz pure alcohol) Alcoholic Drinks/day: Occasional social drink Comments Unknown Sex and Gender Information Value Date Recorded Sex Assigned at Not on file Legal Sex Female 4:58 PM EST Gender Identity Not on file Sexual Orientation Not on file Last Filed Vital Signs Vital Sign Reading Time Taken Comments Blood Pressure 134/60 01/29/2023 3:43 PM EDT Pulse 89 01/29/2023 3:43 PM EDT Temperature - - Respiratory Rate - - Oxygen Saturation 98% 07/25/2021 3:50 PM EST Inhaled Oxygen Concentration - - Weight 72 kg (158 lb 12.8 oz) 01/29/2023 3:43 PM EDT Height 157.5 cm (5' 2 ) 07/05/2020 12:00 PM EST Body Mass Index 29.04 07/05/2020 12:00 PM EST Plan of Treatment Health Maintenance Due Date Last Done Comments Breast Cancer Screening 1955 Pneumococcal Vaccine: 65+ Ye ars (1 of 2 - PCV) 1962 Colorectal Cancer Screening: Annual FOBT 2005 Colorectal Cancer Screening: Colonoscopy 2005 Colorectal Cancer Screening: Sigmoidoscopy 2005 Influenza Vaccine (#1) 2024 04/27/2021 Hepatitis B Vaccine Aged Out No longe r eligible based on patient's age to complete this topic Insurance MCR ([id number]) [place] [id number] MCR ([id number]) Care Teams Detective Investigator Relationship Specialty Start Date End Date Leighann Mcgrath MD [address] [place] [address] PCP - General 06/27/20
--- OUTSIDE RECORDS SUMMARY | 2024-08-17 14:17 | XMS_ITS ---
Author Organization [employer] Address [address] [place] [address] Care Team Providers Care Telegraph Lineman Name Role Phone ARLINE MAURER Primary Care Provider Camila Stan Unavailable [phone] Allergies No Known Allergies REASON FOR VISIT 1 wk BP f/u Medications Medication SIG (Take, Route, Frequency, Duration) Notes Start Date End Date Status Voltaren 1 % as directed Transder mal bid for 30 days 01/28/2020 Not-Taking Vitamin D (Ergocalciferol) 1.25 MG (47080 UT) TAKE 1 CAPSULE BY MOUTH EVERY WEEK Orally Once weekly for 30 days Not-Taking PARoxetine HCl 30 MG 1 tablet in the mor sandy Orally Once a day for 90 days Not-Taking Warfarin Sodium 3 MG 1 tablet Orally Onc e a day for 30 day(s) 08/15/2018 Not-Taking Warfarin Sodium 5 MG 1 tablet Orally Onc e a day for 30 day(s) Not-Taking Omeprazole 20 MG 1 capsule Orally Onc e a day for 90 days Not-Taking Ergocalciferol 46224 UNIT 1 capsule Oral ly once a week for 30 day(s) 05/07/2018 Not-Taking Pneumovax 23 25 MCG/0.5ML as directed In jection 1 for 362 days 04/25/2021 Not-Taking Shingrix 50 MCG/0.5ML as directed Intramuscular 1 for 365 days 04/25/2021 Not-Taking Losartan Potassium 25 MG TAKE 1 TABLET B Y MOUTH EVERY DAY for 90 Not-Taking amLODIPine Besylate 5 MG TAKE 1 TABLET B Y MOUTH EVERY DAY for 90 days Not-Taking Eliquis 2.5 MG TAKE 1 TABLET BY PINA TH TWICE A DAY Orally Twice a day for 90 days Active Allopurinol 300 MG TAKE 1 TABLET BY PINA TH EVERY DAY for 90 Active Atorvastatin Calcium 40 MG TAKE 1 TABLET BY MOUTH EVERY DAY for 90 Active hydrOXYzine HCl 25 MG 1 tablet as needed Orally every 8 hrs for 90 days Active Pantoprazole Sodium 40 MG 1 tablet Orall y as needed Active Compression Stockings 15-20mmhg to wear daily for pedal edema and hx of DVT for 05/07/2018 Active Sertraline HCl 100 MG 1 tablet Orally On ce a day Active Prazosin HCl 1 MG 1 capsule at bedtime Orally Once a day Active Vital Signs Temperature 97.4 degrees Fahrenheit 04/29/20 24 Oximetry 99 % 04/29/2024 Heart Rate 83 /min 04/29/2024 Blood pressure systolic 160 mm Hg 04/29/20 24 Blood pressure diastolic 70 mm Hg 024 Weight 147.9 lbs 04/29/2024 BMI 27.71 kg/m2 04/29/2024 Height 61.26 in 04/29/2024 Encounters Encounter Location Date Provider Diagnosis [facility] [address] [address] 04/29/2024 Stan Jensen Essential (primary) hypertension I10 Assessments Encounter Date Diagnosis (ICD Code) Assessment Notes Treatment Notes Treatment Clinical Notes Section Notes 04/29/2024 Essential (primary) hypertension (ICD-10 - I10) [...] Of Treatment Next Appt Details Follow Up: next appt, Reason : Provider Name:Stan dumont, 08/25/2024 01:30:00 PM, [address] [address], [place], [address], Progress Notes * Christy ACEVEDODOB:1955 (68 yo F)Acc No.[id number]:04/29/2024 Progress Notes Patient:Christy JIMENEZ Provider:?Stan Jensen :1955???Age:68 Y???Sex:Female D ate:04/29/2024 Phone: Address:[address] [place] [address] [address] Pcp:ERASTO NUNN Subjective: * Chief Complaints: * ???1 wk BP f/u * HPI: ???Internal Medicine:?Mrs. Acevedo is a 68-year-old lady with hypertension, mixed hyperlipidemia, gout and CKD stage 3 and follows up with Dr. Herrera is here for BP check. During previous visit, we have discontinued amlodipine. She states that the dizziness has improved. Has an appointment with nephrology May 05. Denies, CP, SOB, blurry vision, sweating, n/v, dysarthria. Her blood pressure at home it is within normal limits. She also drinks soda instead of water. She denies any other active issues or concerns. * ROS:?General/Constitutional:?Overall health?Good.?Change in appetite?denies.?Chills?denies.?Fever?denies.?Night sweats?denies.?Sleep disturbance?denies.?Weight gain?denies.?Weight loss?denies.?Neurologic:?Difficulty speaking?denies.?Dizziness?improved.?Gait abnormality?denies.?Headache?denies.?Loss of strength?denies.?Memory loss?denies.?Seizures?denies.?Tingling/Numbness?denies .?Ophthalmologic:?Blurred vision?denies.?Discharge?denies.?Dry eye?denies.?Red [...] urination?denies.?difficulty urinating?denies.?discharge?denies.?dysuria?denies.? * Medical History:? * Surgical History:? * Hospitalization/Major Diagno stic Procedure:? * Medications:?TakingPantopraz ole Sodium 40 MG Tablet [...] MCG/0.5ML Injectable as directed Injection 1 Ergocalciferol 03943 UNIT Capsule 1 capsule Orally once a week Omeprazole 20 MG Capsule Delayed Release 1 capsule Orally Once a day PARoxetine HCl 30 MG Tablet 1 tablet in the morning Orally Once a day Vitamin D (Ergocalciferol) 1.25 MG (51972 UT) Capsule TAKE 1 CAPSULE BY MOUTH [...] Injectable as directed Injection 1 Not-Taking Ergocalciferol 73440 UNIT Capsule 1 capsule Orally once a week Not-Taking Omeprazole 20 MG Capsule Delayed Release 1 capsule Orally Once a day Not-Taking PARoxetine HCl 30 MG Tablet 1 tablet in the morning Orally Once a day Not-Taking Vitamin D (Ergocalciferol) 1.25 MG (67929 UT) Capsule TAKE 1 CAPSULE BY MOUTH EVERY WEEK Orally Once weekly Not-Taking Voltaren 1 % Gel as directed Transdermal bid Not-Taking Warfarin Sodium 5 MG Tablet 1 tablet Orally Once a day Not-Taking Warfarin Sodium 3 MG Tablet 1 tablet Orally Once a day Medication List reviewed and reconciled with the patient * Allergies:?N.K.D.A.no[Allerg ies Verified] Objective: * Vitals:?Temp:97.4F, Oxygen s at %:99%, HR:83/min, BP: 138/80 mm Hg,160/70mm Hg, Wt:147.9lbs, BMI:27.71Index, Ht: 61.26 in. * ???Past Orders: ???Lab:Comp. Metabolic Panel [id number] (Order Date - 04/15/2024) (Collection Date & Time - 04/27/2024 07:53 AM) ? Value Reference Range ?Glucose 82 70-99 - mg/d L ?BUN 37 H 8-27 - mg/dL ?Creatinine 1.48 H 0.57-1.00 - mg/dL ?BUN/Creatinine Ratio 25 12-28 - ?Sodium 145 H 134-144 - mmo l/L ?Potassium 4.4 3.5-5.2 - mmol/L ?Chloride 112 H 96-106 - mm ol/L ?Carbon Dioxide, Total 19 L 20-29 - mmol/L ?Calcium 8.9 8.7-10.3 - m g/dL ?Protein, Total 6.6 6.0-8 .5 - g/dL ?Albumin 3.8 L 3.9-4.9 - g/ dL ?Globulin, Total 2.8 1.5- 4.5 - g/dL ?Bilirubin, Total 0.3 0.0 -1.2 - mg/dL ?Alkaline Phosphatase 154 H 44-121 - IU/L ?AST (SGOT) 36 0-40 - IU /L ?ALT (SGPT) 31 0-32 - IU /L ?eGFR 39 L >59 - mL/min/1. 73 * Examination: ???General Examination: ?Psychiatry?Normal.?GENERAL APPEARANCE:?Well developed, well nourished, in no acute distress.?MUSCULOSKELETAL:?Normal.?HEAD:?Normocephalic, atraumatic.?EYES:?Pupils equal, round, reactive to light and accommodation, sclera non-icteric.?EARS:?Normal.?ORAL CAVITY:?Normal.?THROAT:?Clear.?OROPHARYNX?Normal.?SINUSES?Normal.?NECK/THYROID:?Neck supple, full range of motion, no cervical lymphadenopathy.?SKIN:?Warm and dry, no suspicious lesions.?HEART:?Normal.?LUNGS:?Normal.?BREASTS:?__.?ABDOMEN:?Soft, nontender, nondistended, bowel sounds present, normal.?EXTREMITIES:?reticular veins.?PERIPHERAL PULSES:?Normal.?NEUROLOGIC:?Nonfocal,? appropriate?motor strength normal upper and lower extremities, sensory exam intact.?FEMALE GENITOURINARY:?__.?MALE GENITOURINARY:?__.?PODIATRIC:?Normal.?Soa Integration Developer? .? Assessment: * Assessment: 1.?Essential (primary) hyper [...] Codes:?3077F SYST BP = 140 MM HG6 [id number] DIAST BP < 80 MM HG * Follow Up:?next appt * * Sign off status: Completed true * Provider:?Stan Jensen Date:?04/29/20 24 Generated for Kady edwards/Jessica/Haleigh on:?08/17/2024 02:16 PM EST History and Physical Notes * HPI (History of Present Illness) Category Sub-Category Detail Notes Category Not es Internal Medicine Mrs. Portia madrigal is a 68-year-old lady with hypertension, mixed hyperlipidemia, gout and CKD stage 3 and follows up with Dr. Herrera is here for BP check. During previous visit, we have discontinued amlodipine. She states that the dizziness has improved. Has an appointment with nephrology May 05. Denies, CP, SOB, blurry vision, sweating, n/v, dysarthria. Her blood pressure at home it is within normal limits. She also drinks soda instead of water. She denies any other active issues or [...] Normal Psychiatry Normal OROPHARYNX Normal SINUSES Normal Soa Integration Developer
--- OUTSIDE RECORDS SUMMARY | 2024-08-17 14:17 | XMS_ITS ---
Author Organization [facility] Address [address] [facility] [address] [place] [address] Care Team Providers Care Assembler Bicycle Name Role Phone ERASTO NUNN Primary Care Provider REASON FOR VISIT reschedule Encounters Encounter Location Date Provider Diagnosis [facility] [address] [facility] [address] [place] [address] 04/20/2024 ERASTO NUNN Plan Of Treatment Next Appt Details Provider Name:Stan dumont, 08/25/2024 01:30:00 PM, [address] [facility] [address], [place], [address], Progress Notes * CURTIS YelenakimberlynDOB:1955 (68 yo F)Acc No.[id number]:04/20/2024 Patient:?ACEVEDOChristy :1955???Age:68 Y???Sex:Female Phone: Address:[address] [facility] [address] [facility] [address], [place] [address] * true * Date:? Generated for Aliciai grace/Jessica/eTransmitting on:?08/17/2024 02:16 PM EST
--- OUTSIDE RECORDS SUMMARY | 2024-08-17 14:17 | XMS_ITS | Encounter Summary ---
Author Organization [facility] Address [address] [place] [address] Phone Care Team Providers Care Supervisor Gear Repair Name Role Phone Leighann Mcgrath MD Primary Care Provider [phone] Encounter Details Date Type Department Care Team (Late st Contact Info) Description 07/25/2021 Documentation Only [facility] [address] [place] [address] Dain Herrera MD Social History Tobacco Use Types Packs/Day Years Used Date Smoking Tobacco: Never Smokeless Tobacco: Never Alcohol Use Standard Drinks/Week Comments Yes 0 (1 standard drink = 0.6 oz pure alcohol) Alcoholic Drinks/day: Occasional social drink Comments Unknown Sex and Gender Information Value Date Recorded Sex Assigned at Not on file Legal Sex Female 4:58 PM EST Gender Identity Not on file Sexual Orientation Not on file COVID-19 Exposure Response Date Recorded In the last month, have you been in contact with someone who was confirmed or suspected to have Coronavirus / COVID-19? No / Unsure 07/24/2021 9:53 AM EST documented as of this encounter Plan of Treatment Not on file documented as of this encounter Visit Diagnoses Not on filedocumented in this encounter Care Teams Supervisor Gear Repair Relationship Specialty Start Date End Date Leighann Mcgrath MD [address] [place] [address] PCP - General 06/27/20 documented as of this encounter
== END 2024-08-17 12:10 | disposition home or self-care (01) ==
LOC: HO.LAB 12:09
PROVIDERS: PCP Hospitalist; Visit Provider Internal Medicine Nephrology
DX: N25.81 Secondary hyperparathyroidism of renal origin (principal); I10 Essential (primary) hypertension; N18.31 Chronic kidney disease, stage 3a
CPT/HCPCS: 36415; 80051; 82565; 84520; 84550

== ENCOUNTER 2024-08-18 14:18 | Outpatient (AMB) | payer OTHER, SELFPAY ==
--- NOTE | 2024-08-18 14:56 | HO.NEPHOV ---
Vital Signs 08/18/24 14:58 Height 5 ft 2 in Weight 149 lb 4 oz BMI 27.3 BP 154/70 H Blood Pressure Location Lt brachial Position Sitting Pulse 89 Pulse Source Pulse Oximeter Pulse Oximetry (%) 98 Oxygen Delivery Method Room Air Intake Visit Reasons: 1m follow up-Conf Lockstitch Sleeve Maker Required: Yes Lockstitch Sleeve Maker Language: Social Work Case Manager Services: Lockstitch Sleeve Maker Offered & Declined ([facility] Lockstitch Sleeve Maker services refused pt accompanied by daughter in law ) Lockstitch Sleeve Maker Name: Jonathan Accompanied by: Other Relationship Allergies No Known Allergies Allergy (Verified 08/18/24 14:58) HPI Comments Details: Christy was seen in follow-up of her chronic kidney disease and hypertension. She has history of leukemia and had undergone bone marrow transplant in 1994( she had been in remission but used to see Dr. Caro at [facility] who has since retired). She does not have any chest pain, shortness of breath, proximal nocturnal dyspnea, orthopnea, pedal edema or urinary symptoms. Her recent serum creatinine is stable. Her BP is at goal at home. She is not taking OTC medications. [facility] Medical History Leukemia Hypertension CKD (chronic kidney disease) stage 3, GFR 30-59 ml/min Surgical History History of cholecystectomy H/O bone marrow transplant Family History Father Heart disease Mother Diabetes Social History Alcohol intake: current Comment: Socially Patient Tobacco Use Status: Never used Tobacco Physical Exam Vital Signs: Last Vital Signs Pulse 89 08/18/24 14:58 BP 154/70 H 08/18/24 14:58 Pulse Ox 98 08/18/24 14:58 Oxygen Delivery Method Room Air 08/18/24 14:58 BMI result Body Mass Index 27.3 Const General: comfortable and no acute distress Orientation/consciousness: patient oriented x3 HEENT Head: Yes normocephalic Mouth: Normal oral and palatal mucosa present Eyes EOM: EOMs intact bilaterally Neck Neck: Yes supple Resp Auscultation: clear to auscultation bilaterally Cardio Jugular venous distension: no JVD Rate: regular rate GI Palpation (GI): Soft to palpation Auscultation: normal bowel sounds General: Yes no CVA tenderness Back/Spine/Pelvis Back: no CVA tenderness Skin General skin exam: no rashes or lesions noted Neuro General: patient oriented x3 and moves all extremities Extrem General: Yes no pedal edema Results Reviewed Nephrology Results: Hgb 11.5 g/dl (12.0-16.0) L 11/06/23 WBC 6.5 X10*3/uL (4.8-10.8) 11/06/23 Plt Count 173 X10*3/uL (160-400) 11/06/23 Sodium 145 mmol/L (135-145) 08/17/24 Potassium 4.6 mmol/L (3.3-5.1) 08/17/24 Chloride 114 mmol/L (96-108) H 08/17/24 Carbon Dioxide 25 mmol/L (22-29) 08/17/24 BUN 37 mg/dL (9-16) H 08/17/24 Creatinine 1.31 mg/dL (0.5-1.4) 08/17/24 Calcium 10.2 mg/dL (8.4-10.2) 11/06/23 Assessment & Plan Assessment & Plan (1) CKD (chronic kidney disease) stage 3, GFR 30-59 ml/min: Code(s): N18.30 - Chronic kidney disease, stage 3 unspecified Category: Medical Qualifiers: Chronic kidney disease stage 3 subtype: stage 3a (GFR 45-59) Qualified Code(s): N18.31 - Chronic kidney disease, stage 3a (2) Hypertension: Code(s): I10 - Essential (primary) hypertension Category: Medical Qualifiers: Hypertension type: primary hypertension Qualified Code(s): I10 - Essential (primary) hypertension (3) Secondary hyperparathyroidism (of renal origin): Code(s): N25.81 - Secondary hyperparathyroidism of renal origin Category: Medical Plan Christy has CKD for long time. Her serum creatinine is currently stable with a last reading being 1.3. She is not known to have any significant proteinuria. She was asked to start taking amlodipine as prescribed . Her ultrasound in the past was unrevealing. She avoids nonsteroidal anti-inflammatories and tries to keep up with good hydration. She has had high uric acid in the past and takes allopurinol . Her serum calcium has been normal. I did not make any other medication changes today. Answered all questions. Follow-up appointment given Coding Level of Care Code Est Pt Level 4 (78171) Diagnoses Stage 3a chronic kidney disease N18.31 Chronic kidney disease stage 3 subtype: stage 3a (GFR 45-59) Primary hypertension I10 Hypertension type: primary hypertension Secondary hyperparathyroidism (of renal origin) N25.81
[2024-08-18 14:58] VITALS: BP 154/70; PULSE 89; O2SAT 98; BMI 27.3
--- OUTSIDE RECORDS SUMMARY | 2024-08-18 18:05 | XMS_ITS | Encounter Summary ---
Author Organization [facility] Address [address] [place] [address] Care Team Providers Care Sports Fitness And Wellness Director Name Role Phone Jonathon Olivarez MD Primary Care Provider [phone] Leighann Mcgrath MD Primary Care Provider Unavailab le Kimmie Coleman Primary Care Provider Unavailabl e Leighann Mcgrath MD Primary Care Provider Unavailab le Encounter Details Date Type Department Care Team Description 07/08/2017 Release of Information Medical Records [address] [place] [id number] Abstract, Provider Social History Tobacco Use Types Packs/Day Years Used Date Smoking Tobacco: Never Smokeless Tobacco: Never Alcohol Use Standard Drinks/Week Comments No 0 (1 standard drink = 0.6 oz pur e alcohol) Sex Assigned at Date Recorded Not on file Job Start Date Occupation Industry Not on file Not on file Not on file documented as of this encounter Plan of Treatment Not on file documented as of this encounter Visit Diagnoses Not on filedocumented in this encounter Care Teams Sports Fitness And Wellness Director Relationship Specialty Start Date End Date Jonathon Olivarez MD [address] [place] [address] PCP - General Internal Medicine 07/05/17 06/29/18 Leighann Mcgrath MD [address] [place] [phone] PCP - General Internal Medicine 06/30/18 07/24/18 Kimmie Coleman [address] [place] [id number] PCP - General Internal Medicine 07/25/18 01/28/23 Leighann Mcgrath MD [address] [place] [id number] PCP - General Internal Medicine 01/29/23 documented as of this encounter
--- OUTSIDE RECORDS SUMMARY | 2024-08-18 18:05 | XMS_ITS | Encounter Summary ---
Author Organization [facility] Address [address] [place] [address] Care Team Providers Care Firer Low Pressure Name Role Phone Jonathon Olivarez MD Primary Care Provider [phone] Leighann Mcgrath MD Primary Care Provider Unavailab le Kimmie Coleman Primary Care Provider Unavailabl e Leighann Mcgrath MD Primary Care Provider Unavailab le Encounter Details Date Type Department Care Team Description 02/27/2018 [facility] Medical Records [address] [place] [address] Chikis Jovel MD Social History Tobacco Use Types Packs/Day [...] on filedocumented in this encounter Care Teams Firer Low Pressure Relationship Specialty Start Date End Date Jonathon Olivarez MD [address] [place] [id number] PCP - General Internal Medicine 07/05/17 06/29/18 Leighann Mcgrath MD [address] [place] [phone] PCP - General Internal Medicine 06/30/18 07/24/18 Kimmie Coleman [address] [place] [id number] PCP - General Internal Medicine 07/25/18 01/28/23 Leighann Mcgrath MD [address] [place] [address] PCP - General Internal Medicine 01/29/23 documented as of this encounter
--- OUTSIDE RECORDS SUMMARY | 2024-08-18 18:05 | XMS_ITS | Encounter Summary ---
Author Organization [facility] Address [address] [place] [address] Care Team Providers Care Asset Liability Analyst Name Role Phone Jonathon Olivarez MD Primary Care Provider [phone] Leighann Mcgrath MD Primary Care Provider Unavailab le Kimmie oCleman Primary Care Provider Unavailabl e Leighann Mcgrath MD Primary Care Provider Unavailab le Encounter Details Date Type Department Care Team Description 02/26/2018 [facility] Medical Records [address] [place] [address] Fortunato Sahu Social History Tobacco Use Types Packs/Day Years [...] on filedocumented in this encounter Care Teams Asset Liability Analyst Relationship Specialty Start Date End Date Jonathon Olivarez MD [address] [place] [phone] PCP - General Internal Medicine 07/05/17 06/29/18 Leighann Mcgrath MD [address] [place] [phone] PCP - General Internal Medicine 06/30/18 07/24/18 Kimmie Coleman [address] [place] [address] PCP - General Internal Medicine 07/25/18 01/28/23 Leighann Mcgrath MD [address] [place] [address] PCP - General Internal Medicine 01/29/23 documented as of this encounter
--- OUTSIDE RECORDS SUMMARY | 2024-08-18 18:05 | XMS_ITS | Patient Health Record ---
Author Organization [employer] Address [address] [place] [address] Care Team Providers Care Roof Truss Builder Name Role Phone ERASTO NUNN Primary Care Provider WalterjosephStan lopez Unavailable [phone] Allergies No Known Allergies Results Component Value Reference Range Notes Comp. Metabolic Panel (14)-[id number] Reviewed date:04/29/2024 02:37:30 PM Interpretation: Performing Lab:[facility], [address] [place] [address], Phone - [phone], Director - Anusha Notes/Report: Glucose 82 70-99 [...] 0-40 IU/L ALT (SGPT) 31 0-32 IU/L Comp. Metabolic Panel (14)-3 [id number] Reviewed date:01/24/2024 12:30:27 PM Interpretation: Performing Lab:[facility], [address] [place] [address], Phone - [phone], Director - MDJodry Notes/Report: Glucose 89 70-99 mg/dL BUN 35 [...] IU/L ALT (SGPT) 12 0-32 IU/L LP+Non-HDL Cholesterol-08729 5 Reviewed date:01/27/2024 02:07:16 PM Interpretation: Performing Lab:[facility], [address] [place] [address], Phone - [phone], Director - Enmanuely Notes/Report: Cholesterol, Total 223 100-199 mg/dL Triglycerides 250 0-149 mg/dL HDL Cholesterol 47 >39 mg/dL VLDL Cholesterol Mik 44 5-40 mg/dL LDL Chol Calc ([facility]) 132 0-99 mg/dL Non-HDL Cholesterol 176 0-129 mg/dL GGT-[id number] Reviewed date:01/24/2024 12:30:18 PM Interpretation: Performing Lab:[facility], [address] [place] [address], Phone - [phone], Director - Benitadry Notes/Report: GGT 32 0-60 IU/L Uric Acid-[id number] Reviewed date:01/24/2024 12:30:20 PM Interpretation: Performing Lab:[facility], [address] [place] [address], Phone - [phone], Director - Jodry Notes/Report: Uric Acid 3.6 3.0-7.2 mg/dL Therapeutic ta rget for gout patients: <6.0 Reason For Referral Reason Please evaluate and treat Diagnosis 1 Pain in left knee (M 25.562) Diagnosis 2 Unilateral primary o steoarthritis, left knee (M17.12) Referral Organization [facility] Referring Provider First Name ERASTO Referring Provider Last Name ARLINE Referring Provider Speciality Internal M edicine Referred Provider Specialty Orthopedic S urgery General Notes Referral faxed to [facility]. Please contact the patient to schedule., Farnaz Soto 02/10/2024 01:49:22 PM > Referral Priority Routine Reason please evaluate and treat Diagnosis 1 Osteoarthritis of kn ee, unspecified (M17.9) Referral Organization [facility] Referring Provider First Name Stan Referring [...] 90 Active Vitamin D (Ergocalciferol) 1.25 MG (82062 UT) TAKE 1 CAPSULE BY MOUTH EVERY WEEK Orally Once weekly for 30 days Not-Taking PARoxetine HCl 30 MG 1 tablet in the mor sandy Orally Once a day for 90 days Not-Taking Omeprazole 20 MG 1 capsule Orally Onc e a day for 90 days Not-Taking Ergocalciferol 79745 UNIT 1 capsule Oral ly once a [...] Status W/U Status Risk Notes Problem Leukemia (10520867) Leukemia, unspecified not having achieved remission (C95.90) Active confirmed Problem Non-toxic single thyroid nodule (990150944) Nontoxic single thyroid nodule (E04.1) Active confirmed Problem Vitamin D deficiency (44417370) Vitamin D deficiency, unspecified (E55.9) Active confirmed Problem Mixed hyperlipidemia (647058776) Mixed hyperlipidemia (E78.2) Active confirmed Problem Moderate recurrent major depression (23094492) Major depressive disorder, recurrent, moderate (F33.1) Active confirmed Problem Generalized anxiety disorder (98531549) Generalized anxiety disorder (F41.1) Active confirmed Problem Embolism from thrombosis of vein of lower extremity (920573008) 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) Active confirmed Problem Acute deep venous thrombosis of left upper extremity (241066851414914) Acute embolism and thrombosis of deep veins of left upper extremity (I82.622) Active confirmed Problem Lymphedema (761231105) Lymphedema, not elsewhere classified (I89.0) Active confirmed Problem Gastro-esophageal reflux disease without esophagitis (132300459) Gastro-esophageal reflux disease without esophagitis (K21.9) Active confirmed Problem Chronic gouty arthritis (73753294) Chronic gout, unspecified, without tophus (tophi) (M1A.9XX0) Active confirmed Problem Osteoarthritis of knee (384712113) Unilateral primary osteoarthritis, left knee (M17.12) Active confirmed Problem Osteoarthritis of knee (114180298) Osteoarthritis of knee, unspecified (M17.9) Active confirmed Problem Age-related osteoporosis (807090017) Age-related osteoporosis without current pathological fracture (M81.0) Active confirmed Problem Chronic kidney disease stage 3 (disorder) (844100629) Chronic kidney disease, stage 3 (moderate) (N18.3) Active confirmed Problem Proteinuria (64175316) Proteinuria, unspecified (R80.9) Active confirmed Problem Essential hypertension (37777347) Essential (primary) hypertension (I10) Active confirmed Problem Chronic kidney disease stage 3A (disorder) (594845766) Chronic kidney disease, stage 3a (N18.31) Active confirmed Problem History of disease caused by Severe acute respiratory syndrome coronavirus 2 (situation) (2699313558055847 05) Personal history of COVID-19 (Z86.16) Active confirmed Vital Signs Heart Rate 83 /min 04/29/2024 Temperature 97.4 degrees Fahrenheit 04/29/2024 Blood pressure diastolic 70 mm Hg 04/29/2024 Oximetry 99 % 04/29/2024 Height 61.26 in 04/29/2024 Blood pressure systolic 160 mm Hg 04/29/2024 Weight 147.9 lbs 04/29/2024 BMI 27.71 kg/m2 04/29/2024 Encounters Encounter Location Date Provider Diagnosis [facility] [address] [facility] [address] [place] [address] 02/21/2024 ERASTO NUNN [facility] [address] [facility] [address] [place] [address] 01/27/2024 ERASTO NUNN Essential (primary) hypertension I10 [...] M1A.9XX0 and Pain in left knee M25.[address] [place] [address] 02/12/2024 Ghadeer Mazloum Essential (primary) hypertension I10 ; Dizziness R42 and Orthostatic hypotension I95.[address] [place] [address] 04/01/2024 Ghadeer Mazloum Essential (primary) hypertension I10 ; Dizziness R42 ; Orthostatic hypotension I95.1 and Osteoarthritis of knee, unspecified M17.[address] [place] [address] 04/15/2024 Ghadeer Mazloum Essential (primary) hypertension I10 [address] [place] [address] 04/29/2024 Ghadeer Mazloum Essential (primary) hypertension I10 [address] [place] [address] 02/10/[address] [place] [address] 02/12/[address] [place] [address] 03/31/[address] [place] [address] 04/08/[address] [place] [address] 04/20/2024 [facility] Assessments Encounter Date Diagnosis (ICD Code) Assessment [...] that she has been told by her performance improvement director to cut down on Amlodipine from 10 [...] that she has been told by her performance improvement director to cut down on Amlodipine from 10 [...] Started on Saturday. Lasts for seconds. Negative Mcbh [place]hill[place], no neurodeficit. Orthostatic vital signs are remarkable [...] stable on current regimen. She goes to [facility]. DVT. Continue Eliquis 5 MG twice a day. Abnormal results of Pain in left knee. Ordered x-ray of the left knee Overweight. She lost 2.5 lbs since last visit. Advised dietary restrictions and regimental exercise. Goal is to lose 5-6 lbs a month. Eye screening. She sees her inhalation therapy aides teacher regularly. Dental screening. She sees dentist regularly. [...] this note under HIPAA compliance and under [place] law mandated for scribe services. Patient aware [...] stable on current regimen. She goes to [facility]. DVT. Continue Eliquis 5 MG twice a day. Abnormal results of Pain in left knee. Ordered x-ray of the left knee Overweight. She lost 2.5 lbs since last visit. Advised dietary restrictions and regimental exercise. Goal is to lose 5-6 lbs a month. Eye screening. She sees her inhalation therapy aides teacher regularly. Dental screening. She sees dentist regularly. [...] this note under HIPAA compliance and under [place] law mandated for scribe services. Patient aware [...] stable on current regimen. She goes to [facility]. DVT. Continue Eliquis 5 MG twice a day. Abnormal results of Pain in left knee. Ordered x-ray of the left knee Overweight. She lost 2.5 lbs since last visit. Advised dietary restrictions and regimental exercise. Goal is to lose 5-6 lbs a month. Eye screening. She sees her inhalation therapy aides teacher regularly. Dental screening. She sees dentist regularly. [...] this note under HIPAA compliance and under [place] law mandated for scribe services. Patient aware [...] that she has been told by her performance improvement director to cut down on Amlodipine from 10 [...] stable on current regimen. She goes to [facility]. DVT. Continue Eliquis 5 MG twice a day. Abnormal results of Pain in left knee. Ordered x-ray of the left knee Overweight. She lost 2.5 lbs since last visit. Advised dietary restrictions and regimental exercise. Goal is to lose 5-6 lbs a month. Eye screening. She sees her inhalation therapy aides teacher regularly. Dental screening. She sees dentist regularly. [...] this note under HIPAA compliance and under [place] law mandated for scribe services. Patient aware [...] stable on current regimen. She goes to [facility]. DVT. Continue Eliquis 5 MG twice a day. Abnormal results of Pain in left knee. Ordered x-ray of the left knee Overweight. She lost 2.5 lbs since last visit. Advised dietary restrictions and regimental exercise. Goal is to lose 5-6 lbs a month. Eye screening. She sees her inhalation therapy aides teacher regularly. Dental screening. She sees dentist regularly. [...] this note under HIPAA compliance and under [place] law mandated for scribe services. Patient aware [...] stable on current regimen. She goes to [facility]. DVT. Continue Eliquis 5 MG twice a day. Abnormal results of Pain in left knee. Ordered x-ray of the left knee Overweight. She lost 2.5 lbs since last visit. Advised dietary restrictions and regimental exercise. Goal is to lose 5-6 lbs a month. Eye screening. She sees her inhalation therapy aides teacher regularly. Dental screening. She sees dentist regularly. [...] this note under HIPAA compliance and under [place] law mandated for scribe services. Patient aware [...] stable on current regimen. She goes to [facility]. DVT. Continue Eliquis 5 MG twice a day. Abnormal results of Pain in left knee. Ordered x-ray of the left knee Overweight. She lost 2.5 lbs since last visit. Advised dietary restrictions and regimental exercise. Goal is to lose 5-6 lbs a month. Eye screening. She sees her inhalation therapy aides teacher regularly. Dental screening. She sees dentist regularly. [...] this note under HIPAA compliance and under [place] law mandated for scribe services. Patient aware [...] stable on current regimen. She goes to [facility]. DVT. Continue Eliquis 5 MG twice a day. Abnormal results of Pain in left knee. Ordered x-ray of the left knee Overweight. She lost 2.5 lbs since last visit. Advised dietary restrictions and regimental exercise. Goal is to lose 5-6 lbs a month. Eye screening. She sees her inhalation therapy aides teacher regularly. Dental screening. She sees dentist regularly. [...] this note under HIPAA compliance and under [place] law mandated for scribe services. Patient aware [...] stable on current regimen. She goes to [facility]. DVT. Continue Eliquis 5 MG twice a day. Abnormal results of Pain in left knee. Ordered x-ray of the left knee Overweight. She lost 2.5 lbs since last visit. Advised dietary restrictions and regimental exercise. Goal is to lose 5-6 lbs a month. Eye screening. She sees her inhalation therapy aides teacher regularly. Dental screening. She sees dentist regularly. [...] this note under HIPAA compliance and under [place] law mandated for scribe services. Patient aware [...] 08/26/2018 Urine Microalbumin (Random) 08/26/2018 Iron and TIBC-341073 02/12/2024 Ferritin-511827 02/12/2024 CBC With Differential/Platelet-330324 Next Appt Details Provider Name:Stan Nelly dumont, 08/25/2024 01:30:00 PM, [address] [place] [address], [place], [address], Insurance Providers Payer Name Payer Address Payer Phone Subscriber Number Group Number Insured Name Patient Relationship to Insured Coverage Start Date Coverage End Date [facility] [address] [place] [id number] Christy Acevedo Self - patient is the insured Medical (General) History Medical History History ICD Code hypertension, benign hyperlipidemia acid reflux gout Anxiety disorder- at [facility] DVT -LE CKD Stage 3 Leukema in remission and see Dr Gordo espinal [facility] Major depression 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
--- OUTSIDE RECORDS SUMMARY | 2024-08-18 18:05 | XMS_ITS | Encounter Summary ---
Author Organization [facility] Address [address] [place] [address] Care Team Providers Care Poultry Culler Name Role Phone Jonathon Olivarez MD Primary Care Provider [phone] Leighann Mcgrath MD Primary Care Provider Unavailab le Kimmie Coleman Primary Care Provider Unavailabl e Leighann Mcgrath MD Primary Care Provider Unavailab le Encounter Details Date Type Department Care Team Description 03/07/2018 Transfer Records Medical Records [address] [place] [address] Social History Tobacco Use Types Packs/Day Years [...] on filedocumented in this encounter Care Teams Poultry Culler Relationship Specialty Start Date End Date Jonathon Olivarez MD [address] [place] [address] PCP - General Internal Medicine 07/05/17 06/29/18 Leighann Mcgrath MD [address] [place] [address] PCP - General Internal Medicine 06/30/18 07/24/18 Kimmie Coleman [address] [place] [address] PCP - General Internal Medicine 07/25/18 01/28/23 Leighann Mcgrath MD [address] [place] [address] PCP - General Internal Medicine 01/29/23 documented as of this encounter
--- OUTSIDE RECORDS SUMMARY | 2024-08-18 18:05 | XMS_ITS | Clinical Summary ---
Author Organization [facility] Address [address] [place] [address] Care Team Providers Care Roller Coaster Operator Name Role Phone Leighann Mcgrath MD Primary Care Provider [phone] Social History Tobacco Use Types Packs/Day Years [...] Health Screening 05/20/2022 Influenza Vaccine (#1) 2024 04/27/2021 Hypertension/CHF/CAD Annual BMP Blood Test 08/18/2024 HIB Vaccines Aged Out No longer eligi [...] age to complete this topic Care Teams Roller Coaster Operator Relationship Specialty Start Date End Date Leighann Mcgrath MD [address] [place] [address] PCP - General 05/19/21
--- OUTSIDE RECORDS SUMMARY | 2024-08-18 18:05 | XMS_ITS | Encounter Summary ---
Author Organization [facility] Address [address] [place] [address] Care Team Providers Care Operational Test Mechanic Name Role Phone Jonathon Olivarez MD Primary Care Provider [phone] Leighann Mcgrath MD Primary Care Provider Unavailab le Kimmie Coleman Primary Care Provider Unavailabl e Leighann Mcgrath MD Primary Care Provider Unavailab le Encounter Details Date Type Department Care Team Description 02/28/2018 Orders Only Lab - [address] [address] Jonathon Olivarez MD [address] [place] [address] Hospital discharge follow-up (Primary Dx) Social History Tobacco Use Types Packs/Day Years [...] on file documented as of this encounter Results * PROTHROMBIN TIME (02/28/2018 8:48 AM EDT) PT 15.3 11.6 - 15.6 SEC 02/28/2018 1:32 PM EDT [facility] Comment: Please note adjusted PT(sec)normal reference range ?? effective 02/15/15. INR 1.14 02/28/2018 1:32 PM EDT [facility] 02/28/2018 8:48 AM EDT 02/28/2018 8:54 AM EDT Jonathon Olivarez MD LAB Performing Organization Address City/State/[facility] Co de Phone Number [facility] [address] [facility] documented in this encounter Visit Diagnoses Diagnosis Hospital discharge follow-up- Primary Other follow-up examination documented in this encounter Care Teams Operational Test Mechanic Relationship Specialty Start Date End Date Jonathon Olivarez MD [address] [place] [address] PCP - General Internal Medicine 07/05/17 06/29/18 Leighann Mcgrath MD [address] [place] [address] PCP - General Internal Medicine 06/30/18 07/24/18 Kimmie Coleman [address] [place] [address] PCP - General Internal Medicine 07/25/18 01/28/23 Leighann Mcgrath MD [address] [place] [address] PCP - General Internal Medicine 01/29/23 documented as of this encounter
--- OUTSIDE RECORDS SUMMARY | 2024-08-18 18:05 | XMS_ITS | Encounter Summary ---
Author Organization [facility] Address [address] [place] [address] Care Team Providers Care Die Repairer Forging Name Role Phone Leighann Mcgrath MD Primary Care Provider Unavailab Kimmie Zarate Primary Care Provider Unavailabl Leighann Jeong MD Primary Care Provider Unavailab le Encounter Details Date Type Department Care Team Description 07/10/2018 Release of Information Medical Records [address] [place] [address] Abstract, Provider Social History Tobacco Use Types [...] on filedocumented in this encounter Care Teams Die Repairer Forging Relationship Specialty Start Date End Date Leighann Mcgrath MD PCP - General Internal Medicine 06/30/18 07/24/18 Kimmie Coleman PCP - General Internal Medicine 07/25/18 01/28/23 Leighann Mcgrath MD PCP - General Internal Medicine 01/29/23 documented as of this encounter
--- OUTSIDE RECORDS SUMMARY | 2024-08-18 18:05 | XMS_ITS | Clinical Summary ---
Author Organization [facility] Address [address] [place] [address] Care Team Providers Care Make Up Worker Name Role Phone Leighann Mcgrath MD Primary Care Provider [phone] Allergies No known active allergies Medications Medication [...] 01/28/2020 Activ e ergocalciferol (VITAMIN D2) capsule 50074 units 1 capsule 0 05/07/2018 Active hydrOXYzine [...] age to complete this topic Care Teams Make Up Worker Relationship Specialty Start Date End Date Leighann Mcgrath MD [address] [place] [address] PCP - General Internal Medicine 05/19/21
--- OUTSIDE RECORDS SUMMARY | 2024-08-18 18:05 | XMS_ITS | Encounter Summary ---
Author Organization [facility] Address [address] [place] [address] Care Team Providers Care Front Desk Admin Name Role Phone Jonathon Olivarez MD Primary Care Provider [phone] Leighann Mcgrath MD Primary Care Provider Unavailab le Kimmie Coleman Primary Care Provider Unavailabl e Leighann Mcgrath MD Primary Care Provider Unavailab le Reason for Visit * Reason Onset Date Comments Nurse Triage Follow-up 02/28/2018 patient a nd daughter are in the lobby Encounter Details Date Type Department Care Team Description 02/28/2018 Telephone Adult Medicine B - [address] [address] Jonathon Olivarez MD [address] [place] [address] Nurse Triage Follow-up (patient and daughter are in the lobby) Social History Tobacco Use Types Packs/Day Years Used Date Smoking Tobacco: Never Smokeless Tobacco: Never Alcohol Use Standard Drinks/Week Comments No 0 (1 standard drink = 0.6 oz pur e alcohol) Sex Assigned at Date Recorded Not on file Job Start Date Occupation Industry Not on file Not on file Not on file documented as of this encounter Miscellaneous Notes * Telephone Encounter - Chelo Kumar R.N. - 02/28/2018 9:30 AM EDT Fairly new patient walked in with daughter. Pt was just discharged from [facility]. Was in hospital from 02/25-02/27 for DVT in lower extremity. Daughter reports pt mentions dizziness and fatigue/general weakness. Denies lightheadedness, faintness, CP, sob, palpitations, clammy skin, blurred vision. Pt is eating and drinking okay. Gait is stable. BP taken: 112/60. Pt given a hospital f/u with Dr. Jaeger this Saturday, 03/03 at 130 pm. Pt to f/u then. Advised to rest, stay hydrated and take discharge medications as advised. Any issues, call our office. If change/worsening in condition, sx's discussed, go to ER. [facility] notes needed. * Telephone Encounter - Roya Brown - 02/28/2018 8:59 AM EDT Patient's daughter is in the lobby...would like to speak to someone Symptoms patient is presenting: dizzy If pain or injury related was it due to an accident at work or from a motor vehicle accident? NO If yes, gather 3rd green party insurance information Date of accident/Injury: How long has patient had these symptoms?: 1 day PCP: Jonathon Olivarez Payor: [employer] FFS / Plan: [employer] / Product Type: MEDICAID RISK documented in this encounter Plan of Treatment Not on file documented as of this encounter Visit Diagnoses Not on filedocumented in this encounter Care Teams Front Desk Admin Relationship Specialty Start Date End Date Jonathon Olivarez MD [address] [place] [address] PCP - General Internal Medicine 07/05/17 06/29/18 Leighann Mcgrath MD [address] [place] [address] PCP - General Internal Medicine 06/30/18 07/24/18 Kimmie Coleman [address] [place] [address] PCP - General Internal Medicine 07/25/18 01/28/23 Leighann Mcgrath MD [address] [place] [address] PCP - General Internal Medicine 01/29/23 documented as of this encounter
--- OUTSIDE RECORDS SUMMARY | 2024-08-18 18:05 | XMS_ITS | Clinical Summary ---
Author Organization [facility] Address [address] [facility] [address] [place] [address] Phone Care Team Providers Care Machine Pack Assembler Name Role Phone Leighann Mcgrath MD Primary Care Provider [phone] Allergies No known active allergies Medications allopurinol [...] left femoral vein 02/28/2018 09/27/2020 Overview (09/27/2020): [facility] (03/18/18): anticoagulation for 3-6 months Chronic gouty [...] this topic Insurance MCR ([id number]) [place] [id number] MCR ([id number]) Care Teams Machine Pack Assembler Relationship Specialty Start Date End Date Leighann Mcgrath MD [address] [place] [address] PCP - General 06/27/20
--- OUTSIDE RECORDS SUMMARY | 2024-08-18 18:05 | XMS_ITS ---
Author Organization [facility] Address [address] [facility] [facility] [address] [place] [address] Care Team Providers Care Rail Signal Designer Name Role Phone ERASTO NUNN Primary Care Provider [phone] REASON FOR VISIT reschedule Encounters Encounter Location Date Provider Diagnosis [facility] [address] [facility] [address] [place] [address] 04/20/2024 ERASTO NUNN Plan Of Treatment Next Appt Details Provider Name:Stan dumont, 08/25/2024 01:30:00 PM, [address] [facility] [facility] [address], [place], [address], Progress Notes * Christy ACEVEDODOB:1955 (68 yo F)Acc No.[id number]:04/20/2024 Patient:?ACEVEDOYelenacy :1955???Age:68 Y???Sex:Female Phone: Address:[address], [place] [address] * true * Date:? Generated for Aliciai grace/Jessica/eTransmitting on:?08/18/2024 06:05 PM EST
--- OUTSIDE RECORDS SUMMARY | 2024-08-18 18:05 | XMS_ITS ---
Author Organization [facility] Address [address] [facility] [address] [place] [address] Care Team Providers Care Services Engineer Name Role Phone ERASTO NUNN Primary Care Provider Stan Jensen Unavailable [phone] Allergies No Known Allergies Results Component Value Reference Range Notes Comp. Metabolic Panel (14-3 Reviewed date:04/29/2024 02:37:30 PM Interpretation: Performing Lab:[facility] [place], [address] [place] [address], [place], Phone - [phone], Director - Anusha Notes/Report: Glucose 82 70-99 [...] 1 for 362 days 04/25/2021 Not-Taking Ergocalciferol 54410 UNIT 1 capsule Oral ly once a [...] days Not-Taking Vitamin D (Ergocalciferol) 1.25 MG (93325 UT) TAKE 1 CAPSULE BY MOUTH EVERY [...] 80 Encounters Encounter Location Date Provider Diagnosis [facility] [address] [place] [address] 04/15/2024 Stan Jensen Essential (primary) hypertension I10 [...] Provider Name:Stan dumont, 08/25/2024 01:30:00 PM, [address], [place], [address], Progress Notes * Christy ACEVEDOELIZABETH:1955 (68 yo F)Acc No.[id number]:04/15/2024 Progress Notes Patient:Christy JIMENEZ Provider:?Stan Jensen :1955???Age:68 Y???Sex:Female D ate:04/15/2024 Phone: Address:[address] [place] [address] [address], [facility] Pcp:ERASTO NUNN Subjective: * Chief Complaints: * [...] MCG/0.5ML Injectable as directed Injection 1 Ergocalciferol 79173 UNIT Capsule 1 capsule Orally once a week Omeprazole 20 MG Capsule Delayed Release 1 capsule Orally Once a day PARoxetine HCl 30 MG Tablet 1 tablet in the morning Orally Once a day Vitamin D (Ergocalciferol) 1.25 MG (84927 UT) Capsule TAKE 1 CAPSULE BY MOUTH [...] Injectable as directed Injection 1 Not-Taking Ergocalciferol 31791 UNIT Capsule 1 capsule Orally once a week Not-Taking Omeprazole 20 MG Capsule Delayed Release 1 capsule Orally Once a day Not-Taking PARoxetine HCl 30 MG Tablet 1 tablet in the morning Orally Once a day Not-Taking Vitamin D (Ergocalciferol) 1.25 MG (83664 UT) Capsule TAKE 1 CAPSULE BY MOUTH [...] and lower extremities, sensory exam intact.?FEMALE GENITOURINARY:?__.?MALE GENITOURINARY:?__.?PODIATRIC:?Normal.?Furnace Operator? .? Assessment: * Assessment: 1.?Essential (primary) hyper [...] Codes:?3077F SYST BP = 140 MM HG6 EE1872G DIAST BP < 80 MM HG * Follow Up:?1 Week-BP * * Sign off status: Completed true * Provider:?Stan Jensen Date:?04/15/20 24 Generated for Kady edwards/Jessica/Haleigh on:?08/18/2024 06:05 PM EST History and Physical Notes * [...] Normal Psychiatry Normal OROPHARYNX Normal SINUSES Normal Furnace Operator
--- OUTSIDE RECORDS SUMMARY | 2024-08-18 18:05 | XMS_ITS ---
Author Organization [facility] Address [address] [facility] [address] [place] [address] Care Team Providers Care Seat Installer Name Role Phone ARLINE MAURER Primary Care Provider [phone] CamilaJavierayush Unavailable [phone] Allergies No Known Allergies REASON FOR VISIT 1 wk BP f/u Medications Medication SIG (Take, Route, Frequency, Duration) Notes Start Date End Date Status Voltaren 1 % as directed Transder mal bid for 30 days 01/28/2020 Not-Taking Vitamin D (Ergocalciferol) 1.25 MG (29687 UT) TAKE 1 CAPSULE BY MOUTH EVERY [...] a day for 90 days Not-Taking Ergocalciferol 54502 UNIT 1 capsule Oral ly once a [...] 04/29/2024 Encounters Encounter Location Date Provider Diagnosis [facility] [address] [address] 04/29/2024 Stan Jensen Essential (primary) hypertension I10 [...] Provider Name:Stan dumont, 08/25/2024 01:30:00 PM, [address] [address], [place], [address], Progress Notes * Christy ACEVEDODOB:1955 (68 yo F)Acc No.[id number]:04/29/2024 Progress Notes Patient:Christy JIMENEZ Provider:?Stan Jensen :1955???Age:68 Y???Sex:Female D ate:04/29/2024 Phone: Address:[address] [place] [address] [address] Pcp:ERASTO NUNN Subjective: * Chief Complaints: * [...] MCG/0.5ML Injectable as directed Injection 1 Ergocalciferol 15696 UNIT Capsule 1 capsule Orally once a week Omeprazole 20 MG Capsule Delayed Release 1 capsule Orally Once a day PARoxetine HCl 30 MG Tablet 1 tablet in the morning Orally Once a day Vitamin D (Ergocalciferol) 1.25 MG (38195 UT) Capsule TAKE 1 CAPSULE BY MOUTH [...] Injectable as directed Injection 1 Not-Taking Ergocalciferol 16989 UNIT Capsule 1 capsule Orally once a week Not-Taking Omeprazole 20 MG Capsule Delayed Release 1 capsule Orally Once a day Not-Taking PARoxetine HCl 30 MG Tablet 1 tablet in the morning Orally Once a day Not-Taking Vitamin D (Ergocalciferol) 1.25 MG (32655 UT) Capsule TAKE 1 CAPSULE BY MOUTH [...] in. * ???Past Orders: ???Lab:Comp. Metabolic Panel ([id number] (Order Date - 04/15/2024) (Collection Date & [...] and lower extremities, sensory exam intact.?FEMALE GENITOURINARY:?__.?MALE GENITOURINARY:?__.?PODIATRIC:?Normal.?Independent Consultant? .? Assessment: * Assessment: 1.?Essential (primary) hyper [...] Codes:?3077F SYST BP = 140 MM HG6 HG8948G DIAST BP < 80 MM HG * Follow Up:?next appt * * Sign off status: Completed true * Provider:?Stan Jensen Date:?04/29/20 24 Generated for Kady edwards/Jessica/Haleigh on:?08/18/2024 06:05 [...] Normal Psychiatry Normal OROPHARYNX Normal SINUSES Normal Independent Consultant
--- OUTSIDE RECORDS SUMMARY | 2024-08-18 18:06 | XMS_ITS | Encounter Summary ---
Author Organization [facility] Address [address] [place] [address] Phone Care Team Providers Care Night Auditor Name Role Phone Leighann Mcgrath MD Primary Care Provider [phone] Encounter Details Date Type Department Care Team (Late st Contact Info) Description 07/25/2021 Documentation Only [facility] [address] [place] [address] Dain Herrera MD Social History [...] on filedocumented in this encounter Care Teams Night Auditor Relationship Specialty Start Date End Date Leighann Mcgrath MD [address] [place] [address] PCP - General 06/27/20 documented as of this encounter
== END 2024-08-18 15:21 | disposition home or self-care (01) ==
PROVIDERS: PCP Hospitalist; Visit Provider Internal Medicine Nephrology
DX: N18.31 Chronic kidney disease, stage 3a (principal); I10 Essential (primary) hypertension; N25.81 Secondary hyperparathyroidism of renal origin
CPT/HCPCS: 99214

== ENCOUNTER → 2024-08-18 14:18 | Outpatient (BNVA) | payer OTHER, SELFPAY | PROVIDERS: PCP Hospitalist; Visit Provider Internal Medicine Nephrology | DX: I12.9 Hypertensive chronic kidney disease with stage 1 through stage 4 chronic kidney disease, or unspecified chronic kidney disease (principal); N18.31 Chronic kidney disease, stage 3a; N25.81 Secondary hyperparathyroidism of renal origin | CPT/HCPCS: 99212 ==

== ENCOUNTER 2024-12-22 14:09 | Outpatient (AMB) | payer OTHER, SELFPAY ==
[2024-12-22 14:11] VITALS: BP 130/70; PULSE 76; O2SAT 99; BMI 26.9
--- NOTE | 2024-12-22 14:11 | HO.NEPHOV_ITS ---
Vital Signs 12/22/24 14:11 Height 5 ft 2 in Weight 147 lb BMI 26.9 BP 130/70 Blood Pressure Location Lt brachial Position Sitting Pulse 76 Pulse Source Pulse Oximeter Pulse Oximetry (%) 99 Oxygen Delivery Method Room Air Intake Visit Reasons: 4mon follow-up No labs-Conf Grooving Machine Operator Required: No Allergies No Known Allergies Allergy (Verified 12/22/24 14:13) HPI Comments Details: Christy was seen in follow-up of her chronic kidney disease and hypertension. She has history of leukemia and had undergone bone marrow transplant in 1994( she had been in remission but used to see Dr. Caro at [facility] who has since retired). She does not have any chest pain, shortness of breath, proximal nocturnal dyspnea, orthopnea, pedal edema or urinary symptoms. Her recent serum creatinine is stable. Her BP is at goal at home. She is not taking OTC medications. [facility] Medical History Leukemia Hypertension CKD (chronic kidney disease) stage 3, GFR 30-59 ml/min Surgical History History of cholecystectomy H/O bone marrow transplant Family History Father Heart disease Mother Diabetes Social History Alcohol intake: current Comment: Socially Patient Tobacco Use Status: Never used Tobacco Review of Systems Const All systems reviewed & are unremarkable except as noted in HPI and below Physical Exam Vital Signs: Last Vital Signs Pulse 76 12/22/24 14:11 BP 160/70 H 12/22/24 14:11 Pulse Ox 99 12/22/24 14:11 Oxygen Delivery Method Room Air 12/22/24 14:11 BMI result Body Mass Index 26.9 Const General: comfortable and no acute distress Orientation/consciousness: patient oriented x3 HEENT Head: Yes normocephalic Mouth: Normal oral and palatal mucosa present Eyes EOM: EOMs intact bilaterally Neck Neck: Yes supple Resp Auscultation: clear to auscultation bilaterally Cardio Jugular venous distension: no JVD Rate: regular rate GI Palpation (GI): Soft to palpation Auscultation: normal bowel sounds General: Yes no CVA tenderness Back/Spine/Pelvis Back: no CVA tenderness Skin General skin exam: no rashes or lesions noted Neuro General: patient oriented x3 and moves all extremities Extrem General: Yes no pedal edema Results Reviewed Nephrology Results: Hgb, (12.0-16.0) 11.5 g/dl L 11/06/23 WBC, (4.8-10.8) 6.5 X10*3/uL 11/06/23 Plt Count, (160-400) 173 X10*3/uL 11/06/23 Sodium, (135-145) 145 mmol/L 08/17/24 Potassium, (3.3-5.1) 4.6 mmol/L 08/17/24 Chloride, (96-108) 114 mmol/L H 08/17/24 Carbon Dioxide, (22-29) 25 mmol/L 08/17/24 BUN, (9-16) 37 mg/dL H 08/17/24 Creatinine, (0.5-1.4) 1.31 mg/dL 08/17/24 Calcium, (8.4-10.2) 10.2 mg/dL Δ 11/06/23 Assessment & Plan Assessment & Plan (1) Secondary hyperparathyroidism (of renal origin): Code(s): N25.81 - Secondary hyperparathyroidism of renal origin Category: Medical (2) Hypertension: Code(s): I10 - Essential (primary) hypertension Category: Medical Qualifiers: Hypertension type: primary hypertension Qualified Code(s): I10 - Essential (primary) hypertension (3) CKD (chronic kidney disease) stage 3, GFR 30-59 ml/min: Code(s): N18.30 - Chronic kidney disease, stage 3 unspecified Category: Medical Qualifiers: Chronic kidney disease stage 3 subtype: stage 3a (GFR 45-59) Qualified Code(s): N18.31 - Chronic kidney disease, stage 3a Plan Christy has CKD for long time. Her serum creatinine is currently stable now. She is not known to have any significant proteinuria. She was asked to start taking amlodipine as prescribed . Her ultrasound in the past was unrevealing. She avoids nonsteroidal anti-inflammatories and tries to keep up with good hydration. She has had high uric acid in the past and takes allopurinol . Her serum calcium has been normal. I did not make any other medication changes today. Answered all questions. Follow-up appointment given Orders: Orders Creatinine 6 Months I10 - Essential (primary) hypertension, N18.31 - Chronic kidney disease, stage 3a, N25.81 - Secondary hyperparathyroidism of renal origin Calcium 6 Months I10 - Essential (primary) hypertension, N18.31 - Chronic kidney disease, stage 3a, N25.81 - Secondary hyperparathyroidism of renal origin Vitamin D 25-OH Total 6 Months I10 - Essential (primary) hypertension, N18.31 - Chronic kidney disease, stage 3a, N25.81 - Secondary hyperparathyroidism of renal origin Blood Urea Nitrogen 6 Months I10 - Essential (primary) hypertension, N18.31 - Chronic kidney disease, stage 3a, N25.81 - Secondary hyperparathyroidism of renal origin Electrolytes 6 Months I10 - Essential (primary) hypertension, N18.31 - Chronic kidney disease, stage 3a, N25.81 - Secondary hyperparathyroidism of renal origin Protein Creatinine Ratio, Ur 6 Months I10 - Essential (primary) hypertension, N18.31 - Chronic kidney disease, stage 3a, N25.81 - Secondary hyperparathyroidism of renal origin Complete Blood Count Auto Diff 6 Months I10 - Essential (primary) hypertension, N18.31 - Chronic kidney disease, stage 3a, N25.81 - Secondary hyperparathyroidism of renal origin Parathyroid Hormone Intact 6 Months I10 - Essential (primary) hypertension, N18.31 - Chronic kidney disease, stage 3a, N25.81 - Secondary hyperparathyroidism of renal origin Coding Level of Care Code Est Pt Level 4 (81616) Diagnoses Secondary hyperparathyroidism (of renal origin) N25.81 Primary hypertension I10 Hypertension type: primary hypertension Stage 3a chronic kidney disease N18.31 Chronic kidney disease stage 3 subtype: stage 3a (GFR 45-59)
--- OUTSIDE RECORDS SUMMARY | 2024-12-22 15:00 | XMS_ITS | Encounter Summary ---
Author Organization [facility] Address [address] [place] [address] Care Team Providers Care Planer Offbearer Name Role Phone Jonathon Olivarez MD Primary Care Provider [phone] Leighann Mcgrath MD Primary Care Provider Unavailab le Kimmie Coleman Primary Care Provider Unavailabl e Leighann Mcgrath MD Primary Care Provider Unavailab le Encounter Details Date Type Department Care Team Description 03/12/2018 Home Health Certification Medical Records [address] [place] [address] [facility] [address] [place] [address] Social History Tobacco Use Types Packs/Day Years [...] on filedocumented in this encounter Care Teams Planer Offbearer Relationship Specialty Start Date End Date Jonathon Olivarez MD [address] [place] [address] PCP - General Internal Medicine 07/05/17 06/29/18 Leighann Mcgrath MD [address] [place] [address] PCP - General Internal Medicine 06/30/18 07/24/18 Kimmie Coleman [address] [place] [address] PCP - General Internal Medicine 07/25/18 01/28/23 Leighann Mcgrath MD [address] [place] [address] PCP - General Internal Medicine 01/29/23 documented as of this encounter
--- OUTSIDE RECORDS SUMMARY | 2024-12-22 15:00 | XMS_ITS | Patient Health Record ---
Author Organization [facility] Address [address] [place] [address] Care Team Providers Care Communication Center Coordinator Name Role Phone ERASTO NUNN Primary Care Provider [phone] WalterjosephStan lopez Unavailable [phone] Allergies No Known Allergies Results Component Value Reference Range Notes Lipid Panel-[id number] Reviewed date:09/10/2024 07:59:35 AM Interpretation: Performing Lab:[facility], [address] [facility], Phone - [phone], Director - MDJodry Notes/Report: Cholesterol, Total 149 100-199 mg/dL Triglycerides 133 0-149 mg/dL HDL Cholesterol 51 >39 mg/dL VLDL Cholesterol Mik 23 5-40 mg/dL LDL Chol Calc (NIH) 75 0-99 mg/dL Albumin/Creatinine Ratio,Uri ne-[id number] Reviewed date:09/10/2024 05:22:46 PM Interpretation: Performing Lab:[facility], [address] [facility], Phone - [phone], Director - MDJodry Notes/Report: Creatinine, Urine 134.0 Not Estab. mg/dL Albumin, Urine 169.8 Not Estab. ug/mL Alb/Creat Ratio 127 0-29 mg/g creat Normal: 0 - 29 Moderately increased: 30 - 300 Severely increased: >300 Comp. Metabolic Panel (14)-3 Reviewed date:04/29/2024 02:37:30 PM Interpretation: Performing Lab:[facility] [place], Phone - [phone], Director - MDJodry Notes/Report: Glucose 82 70-99 mg/dL BUN 37 [...] 31 0-32 IU/L Comp. Metabolic Panel (14)-3 03154 Reviewed date:01/24/2024 12:30:27 PM Interpretation: Performing Lab:[facility], [address] [place] [address], Phone - [phone], Director - Anusha Notes/Report: Glucose 89 70-99 [...] IU/L ALT (SGPT) 12 0-32 IU/L LP+Non-HDL Cholesterol-[id number] 5 Reviewed date:01/27/2024 02:07:16 PM Interpretation: Performing Lab:[facility], [address] [place] [address], Phone - [phone], Director - Anusha Notes/Report: Cholesterol, Total 223 100-199 mg/dL Triglycerides 250 0-149 mg/dL HDL Cholesterol 47 >39 mg/dL VLDL Cholesterol Mik 44 5-40 mg/dL LDL Chol Calc ([facility]) 132 0-99 mg/dL Non-HDL Cholesterol 176 0-129 mg/dL GGT-[id number] Reviewed date:01/24/2024 12:30:18 PM Interpretation: Performing Lab:[facility], [address] [place] [address], [place], Phone - [phone], Director - MDNidry Notes/Report: GGT 32 0-60 IU/L Uric Acid-[id number] Reviewed date:01/24/2024 12:30:20 PM Interpretation: Performing Lab:[facility], [address] [place] [address], Phone - [phone], Director - MDChayy Notes/Report: Uric Acid 3.6 3.0-7.2 mg/dL Therapeutic ta rget for gout patients: <6.0 Reason For Referral Reason Please evaluate and treat Diagnosis 1 Pain in left knee (M 25.562) Diagnosis 2 Unilateral primary o steoarthritis, left knee (M17.12) Referral Organization [facility] Referring Provider First Name ERASTO Referring Provider Last Name ARLINE Referring Provider Speciality Internal edicine Referred Provider Specialty Orthopedic S urgery General Notes Referral faxed to [facility]. Please contact the patient to schedule.Brittany Kayla 02/10/2024 01:49:22 PM > Referral Priority Routine Reason please evaluate and treat Diagnosis 1 Osteoarthritis of kn ee, unspecified (M17.9) Referral Organization [facility] Referring Provider First Name Stan Referring Provider Last Name Camila Referred Provider Specialty Orthopedic S urgery General Notes Referral faxed to [facility]. Please contact the patient to schedule an appt.Brittany Kayla 04/06/2024 10:18:43 AM > Referral Priority Routine Medications Medication SIG (Take, Route, Frequency, Duration) Notes Start Date End Date Status Losartan Potassium 25 MG TAKE 1 TABLET B Y MOUTH EVERY DAY; Duration: 90 Not-Taki ng Allopurinol 300 MG TAKE 1 TABLET BY EVERY DAY; Duration: 90 Active Warfarin Sodium 5 MG 1 tablet Orally Onc e a day; Duration: 30 day(s) Not-Taking Atorvastatin Calcium 40 MG TAKE 1 TABLET BY MOUTH EVERY DAY; Duration: 90 Active Warfarin Sodium 3 MG 1 tablet Orally Onc e a day; Duration: 30 day(s) 08/15/2018 Not-Taking hydrOXYzine HCl 25 MG 1 tablet as needed Orally every 8 hrs; Duration: 90 days Active Vitamin D (Ergocalciferol) 1.25 MG (18969 UT) TAKE 1 CAPSULE BY MOUTH EVERY WEEK Orally Once weekly; Duration: 30 days Not-Taking Eliquis 2.5 MG TAKE 1 TABLET BY PINA TH TWICE A DAY Orally Twice a day; Duration: 90 days Active Voltaren 1 % as directed Transder mal bid; Duration: 30 days 01/28/2020 Not-Takin g Sertraline HCl 100 MG 1 tablet Orally On ce a day Active Compression Stockings 15-20mmhg to wear daily for pedal edema and hx of DVT; Duration: 30 05/07/2018 Active PARoxetine HCl 30 MG 1 tablet in the mor sandy Orally Once a day; Duration: 90 days Not-Taking amLODIPine Besylate 5 MG TAKE 1 TABLET B Y MOUTH EVERY DAY; Duration: 90 days Active Pantoprazole Sodium 40 MG 1 tablet Orall y as needed Active Pneumovax 23 25 MCG/0.5ML as directed In jection 1; Duration: 362 days 04/25/2021 Not-Taking Prazosin HCl 1 MG 1 capsule at bedtime Orally Once a day Active Ergocalciferol 12253 UNIT 1 capsule Oral ly once a week; Duration: 30 day(s) 05/07/2018 Not-Taking Omeprazole 40 MG 1 capsule 1/2 to 1 h our before morning meal Orally Once a day; Duration: 90 days Active Shingrix 50 MCG/0.5ML as directed Intramuscular 1; Duration: 365 days 04/25/2021 Not-Taking Immunizations Vaccine Route Administration Date Status Comme [...] Status W/U Status Risk Notes Problem Leukemia (55754410) Leukemia, unspecified not having achieved remission (C95.90) Active confirmed Problem Non-toxic single thyroid nodule (040774597) Nontoxic single thyroid nodule (E04.1) Active confirmed Problem Vitamin D deficiency (37448705) Vitamin D deficiency, unspecified (E55.9) Active confirmed Problem Mixed hyperlipidemia (283722475) Mixed hyperlipidemia (E78.2) Active confirmed Problem Moderate recurrent major depression (28690672) Major depressive disorder, recurrent, moderate (F33.1) Active confirmed Problem Generalized anxiety disorder (91942749) Generalized anxiety disorder (F41.1) Active confirmed Problem Embolism from thrombosis of vein of lower extremity (390815207) 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) Active confirmed Problem Acute deep venous thrombosis of left upper extremity (735651239206980) Acute embolism and thrombosis of deep veins of left upper extremity (I82.622) Active confirmed Problem Lymphedema (462158630) Lymphedema, not elsewhere classified (I89.0) Active confirmed Problem Gastro-esophageal reflux disease without esophagitis (026516552) Gastro-esophageal reflux disease without esophagitis (K21.9) Active confirmed Problem Chronic gouty arthritis (53356773) Chronic gout, unspecified, without tophus (tophi) (M1A.9XX0) Active confirmed Problem Osteoarthritis of knee (798120560) Unilateral primary osteoarthritis, left knee (M17.12) Active confirmed Problem Osteoarthritis of knee (062216547) Osteoarthritis of knee, unspecified (M17.9) Active confirmed Problem Age-related osteoporosis (506081970) Age-related osteoporosis without current pathological fracture (M81.0) Active confirmed Problem Chronic kidney disease stage 3 (disorder) (768696479) Chronic kidney disease, stage 3 (moderate) (N18.3) Active confirmed Problem Proteinuria (22030810) Proteinuria, unspecified (R80.9) Active confirmed Problem Essential hypertension (19541160) Essential (primary) hypertension (I10) Active confirmed Problem Chronic kidney disease stage 3A (disorder) (446763816) Chronic kidney disease, stage 3a (N18.31) Active confirmed Problem History of disease caused by Severe acute respiratory syndrome coronavirus 2 (situation) (3278554125288511 05) Personal history of COVID-19 (Z86.16) Active confirmed Vital Signs Heart Rate 89 /min 09/10/2024 Temperature 97.3 degrees Fahrenheit 09/10/2024 Blood pressure diastolic 70 mm Hg 09/10/2024 Oximetry 98 % 09/10/2024 Height 61.26 in 09/10/2024 Blood pressure systolic 130 mm Hg 09/10/2024 Weight 145.8 lbs 09/10/2024 BMI 27.31 kg/m2 09/10/2024 Encounters Encounter Location Date Provider Diagnosis [address] [place] [address] 01/27/2024 MAURER GUL Essential (primary) hypertension I10 ; Encounter for [...] M1A.9XX0 and Pain in left knee M25.[address] [address] 02/12/2024 Ghadeer Mazloum Essential (primary) hypertension I10 ; Dizziness R42 and Orthostatic hypotension I95.[address] [place] [address] 02/21/2024 MAURER JOLIEL [address] [address] 04/01/2024 Ghadeer Mazloum Essential (primary) hypertension I10 ; Dizziness R42 ; Orthostatic hypotension I95.1 and Osteoarthritis of knee, unspecified M17.[address] [address] 04/15/2024 Ghadeer Mazloum Essential (primary) hypertension I10 [address] [address] 04/29/2024 Ghadeer Mazloum Essential (primary) hypertension I10 [address] [place] [address] 08/28/2024 Ghadeer Mazloum Essential (primary) hypertension I10 ; Chronic kidney disease, stage 3a N18.31 ; Mixed hyperlipidemia E78.2 ; Chronic gout, unspecified, without tophus (tophi) M1A.9XX0 ; Gastro-esophageal reflux disease without esophagitis K21.9 ; Major depressive disorder, recurrent, moderate F33.1 and Acute embolism and thrombosis of deep veins of left upper extremity I82.[address] [place] [address] 09/10/2024 Ghadeer Mazloum Essential (primary) hypertension I10 [address] [place] [address] 02/10/[address] [place] [address] [facility]20[facility] [address] [place] [address] [facility] [address] [place] [address] 04/08/[address] [place] [address] 04/20/[address] [place] [address] 08/25/[address] [place] [address] 10/07/2024 Ghadeer Mazloum Assessments Encounter Date Diagnosis (ICD Code) Assessment Notes Treatment Notes Treatment Clinical Notes Section Notes 01/27/2024 Encounter for general adult medical examination [...] stable on current regimen. She goes to [facility]. DVT. Continue Eliquis 5 MG twice a day. Abnormal results of Pain in left knee. Ordered x-ray of the left knee Overweight. She lost 2.5 lbs since last visit. Advised dietary restrictions and regimental exercise. Goal is to lose 5-6 lbs a month. Eye screening. She sees her information systems architect regularly. Dental screening. She sees dentist regularly. [...] this note under HIPAA compliance and under [place] law mandated for scribe services. Patient aware [...] stable on current regimen. She goes to [facility]. DVT. Continue Eliquis 5 MG twice a day. Abnormal results of Pain in left knee. Ordered x-ray of the left knee Overweight. She lost 2.5 lbs since last visit. Advised dietary restrictions and regimental exercise. Goal is to lose 5-6 lbs a month. Eye screening. She sees her information systems architect regularly. Dental screening. She sees dentist regularly. [...] this note under HIPAA compliance and under [place] law mandated for scribe services. Patient aware of service. Verbal consent and written consent taken from the patient. Patient understands and verbalizes understanding of the scribes services and all questions answered regarding scribes services. Patient agrees to use of scribes services. 02/12/2024 Essential (primary) hypertension (ICD-10 - I10) [...] that she has been told by her non destructive testing specialist to cut down on Amlodipine from 10 [...] that she has been told by her non destructive testing specialist to cut down on Amlodipine from 10 [...] Started on Saturday. Lasts for seconds. Negative [place], no neurodeficit. Orthostatic vital signs are remarkable [...] the patient but was available upon request 08/28/2024 Essential (primary) hypertension (ICD-10 - I10) Mrs. Acevedo is a 69-year-old lady with hypertension, mixed hyperlipidemia, gout and CKD stage 3 and follows up with Dr. Herrera is here for Follow-up. Plan as follows Hypertension - Blood pressure is elevated in the office today, she was recently seen by non destructive testing specialist recommended to get back on amlodipine 5 mg. Advised him being compliant. Advised to reduce his salt intake and increase hydration. We will check blood pressure in the 1-2 weeks. Check comp Chronic kidney disease stage IIIa - Stable at this point. She follows up with Dr. Herrera on a regular basis and there has been no changes. Hyperlipidemia - Previous lipid panel was abnormal. She is currently on atorvastatin 40 mg. Diet modification discussed. Check lipid panel and will make adjustments based on the results Chronic gout - Recent uric acid is within normal limits. Continue on allopurinol GERD - Stable. Continue on pantoprazole MDD - Mood is stable on current regimen. Continue on sertraline 100 mg and prazosin and hydroxyzine as needed DVT of the left upper extremity - She does follow with automobile assembly supervisor. Continue on Eliquis General concerns have been discussed. Screening blood work before next appointment I have rendered the services for this patient under direct supervision of Dr. Nunn, who did not see the patient but was available upon request 08/28/2024 Chronic kidney disease, stage 3a (ICD-10 - N18.31) Mrs. Acevedo is a 69-year-old lady with hypertension, mixed hyperlipidemia, gout and CKD stage 3 and follows up with Dr. Herrera is here for Follow-up. Plan as follows Hypertension - Blood pressure is elevated in the office today, she was recently seen by non destructive testing specialist recommended to get back on amlodipine 5 mg. Advised him being compliant. Advised to reduce his salt intake and increase hydration. We will check blood pressure in the 1-2 weeks. Check comp Chronic kidney disease stage IIIa - Stable at this point. She follows up with Dr. Herrera on a regular basis and there has been no changes. Hyperlipidemia - Previous lipid panel was abnormal. She is currently on atorvastatin 40 mg. Diet modification discussed. Check lipid panel and will make adjustments based on the results Chronic gout - Recent uric acid is within normal limits. Continue on allopurinol GERD - Stable. Continue on pantoprazole MDD - Mood is stable on current regimen. Continue on sertraline 100 mg and prazosin and hydroxyzine as needed DVT of the left upper extremity - She does follow with automobile assembly supervisor. Continue on Eliquis General concerns have been discussed. Screening blood work before next appointment I have rendered the services for this patient under direct supervision of Dr. Nunn, who did not see the patient but was available upon request 09/10/2024 Essential (primary) hypertension (ICD-10 - I10) Mrs. Acevedo is a 69-year-old lady with hypertension, mixed hyperlipidemia, gout and CKD stage 3 and follows up with Dr. Herrera is here for blood pressure follow-up. Plan as follows: HTN: - Blood pressure is well controlled. Continue on the same regimen. Advised on reducing salt intake. Increase hydration. I have rendered the services for this patient under direct supervision of Dr. Nunn, who did not see the patient but was available upon request 08/28/2024 Mixed hyperlipidemia (ICD-10 - E78.2) Mrs. Acevedo is a 69-year-old lady with hypertension, mixed hyperlipidemia, gout and CKD stage 3 and follows up with Dr. Herrera is here for Follow-up. Plan as follows Hypertension - Blood pressure is elevated in the office today, she was recently seen by non destructive testing specialist recommended to get back on amlodipine 5 mg. Advised him being compliant. Advised to reduce his salt intake and increase hydration. We will check blood pressure in the 1-2 weeks. Check comp Chronic kidney disease stage IIIa - Stable at this point. She follows up with Dr. Herrera on a regular basis and there has been no changes. Hyperlipidemia - Previous lipid panel was abnormal. She is currently on atorvastatin 40 mg. Diet modification discussed. Check lipid panel and will make adjustments based on the results Chronic gout - Recent uric acid is within normal limits. Continue on allopurinol GERD - Stable. Continue on pantoprazole MDD - Mood is stable on current regimen. Continue on sertraline 100 mg and prazosin and hydroxyzine as needed DVT of the left upper extremity - She does follow with automobile assembly supervisor. Continue on Eliquis General concerns have been discussed. Screening blood work before next appointment I have rendered the services for this patient under direct supervision of Dr. Nunn, who did not see the patient but was available upon request 04/01/2024 Orthostatic hypotension (ICD-10 - I95.1) Mrs. Acevedo is a 68-year-old lady with hypertension, mixed hyperlipidemia, gout and CKD stage [address] follows up with Dr. Herrera here for Dizziness. Plan is as follows: Dizziness: HTN - Started on Saturday. Lasts for seconds. Negative [place], no neurodeficit. Orthostatic vital signs are remarkable [...] that she has been told by her non destructive testing specialist to cut down on Amlodipine from 10 [...] patient but was available upon request 01/27/2024 Mixed hyperlipidemia (ICD-10 - E78.2) Mrs. [...] stable on current regimen. She goes to [facility]. DVT. Continue Eliquis 5 MG twice a day. Abnormal results of Pain in left knee. Ordered x-ray of the left knee Overweight. She lost 2.5 lbs since last visit. Advised dietary restrictions and regimental exercise. Goal is to lose 5-6 lbs a month. Eye screening. She sees her information systems architect regularly. Dental screening. She sees dentist regularly. [...] this note under HIPAA compliance and under [place] law mandated for scribe services. Patient aware of service. Verbal consent and written consent taken from the patient. Patient understands and verbalizes understanding of the scribes services and all questions answered regarding scribes services. Patient agrees to use of scribes services. 04/01/2024 Osteoarthritis of knee, unspecified (ICD-10 - [...] stable on current regimen. She goes to [facility]. DVT. Continue Eliquis 5 MG twice a day. Abnormal results of Pain in left knee. Ordered x-ray of the left knee Overweight. She lost 2.5 lbs since last visit. Advised dietary restrictions and regimental exercise. Goal is to lose 5-6 lbs a month. Eye screening. She sees her information systems architect regularly. Dental screening. She sees dentist regularly. [...] this note under HIPAA compliance and under [place] law mandated for scribe services. Patient aware of service. Verbal consent and written consent taken from the patient. Patient understands and verbalizes understanding of the scribes services and all questions answered regarding scribes services. Patient agrees to use of scribes services. 08/28/2024 Chronic gout, unspecified, without tophus (tophi) (ICD-10 - M1A.9XX0) Mrs. Acevedo is a 69-year-old lady with hypertension, mixed hyperlipidemia, gout and CKD stage 3 and follows up with Dr. Herrera is here for Follow-up. Plan as follows Hypertension - Blood pressure is elevated in the office today, she was recently seen by non destructive testing specialist recommended to get back on amlodipine 5 mg. Advised him being compliant. Advised to reduce his salt intake and increase hydration. We will check blood pressure in the 1-2 weeks. Check comp Chronic kidney disease stage IIIa - Stable at this point. She follows up with Dr. Herrera on a regular basis and there has been no changes. Hyperlipidemia - Previous lipid panel was abnormal. She is currently on atorvastatin 40 mg. Diet modification discussed. Check lipid panel and will make adjustments based on the results Chronic gout - Recent uric acid is within normal limits. Continue on allopurinol GERD - Stable. Continue on pantoprazole MDD - Mood is stable on current regimen. Continue on sertraline 100 mg and prazosin and hydroxyzine as needed DVT of the left upper extremity - She does follow with automobile assembly supervisor. Continue on Eliquis General concerns have been discussed. Screening blood work before next appointment I have rendered the services for this patient under direct supervision of Dr. Nunn, who did not see the patient but was available upon request 08/28/2024 Gastro-esophageal reflux disease without esophagitis (ICD-10 - K21.9) Mrs. Acevedo is a 69-year-old lady with hypertension, mixed hyperlipidemia, gout and CKD stage 3 and follows up with Dr. Herrera is here for Follow-up. Plan as follows Hypertension - Blood pressure is elevated in the office today, she was recently seen by non destructive testing specialist recommended to get back on amlodipine 5 mg. Advised him being compliant. Advised to reduce his salt intake and increase hydration. We will check blood pressure in the 1-2 weeks. Check comp Chronic kidney disease stage IIIa - Stable at this point. She follows up with Dr. Herrera on a regular basis and there has been no changes. Hyperlipidemia - Previous lipid panel was abnormal. She is currently on atorvastatin 40 mg. Diet modification discussed. Check lipid panel and will make adjustments based on the results Chronic gout - Recent uric acid is within normal limits. Continue on allopurinol GERD - Stable. Continue on pantoprazole MDD - Mood is stable on current regimen. Continue on sertraline 100 mg and prazosin and hydroxyzine as needed DVT of the left upper extremity - She does follow with automobile assembly supervisor. Continue on Eliquis General concerns have been discussed. Screening blood work before next appointment I have rendered the services for this patient under direct supervision of Dr. Nunn, who did not see the patient but was available upon request 01/27/2024 Chronic embolism and thrombosis of unspecified [...] stable on current regimen. She goes to [facility]. DVT. Continue Eliquis 5 MG twice a day. Abnormal results of Pain in left knee. Ordered x-ray of the left knee Overweight. She lost 2.5 lbs since last visit. Advised dietary restrictions and regimental exercise. Goal is to lose 5-6 lbs a month. Eye screening. She sees her information systems architect regularly. Dental screening. She sees dentist regularly. [...] this note under HIPAA compliance and under [place] law mandated for scribe services. Patient aware [...] stable on current regimen. She goes to [facility]. DVT. Continue Eliquis 5 MG twice a day. Abnormal results of Pain in left knee. Ordered x-ray of the left knee Overweight. She lost 2.5 lbs since last visit. Advised dietary restrictions and regimental exercise. Goal is to lose 5-6 lbs a month. Eye screening. She sees her information systems architect regularly. Dental screening. She sees dentist regularly. [...] this note under HIPAA compliance and under [place] law mandated for scribe services. Patient aware of service. Verbal consent and written consent taken from the patient. Patient understands and verbalizes understanding of the scribes services and all questions answered regarding scribes services. Patient agrees to use of scribes services. 08/28/2024 Major depressive disorder, recurrent, moderate (ICD-10 - F33.1) Mrs. Acevedo is a 69-year-old lady with hypertension, mixed hyperlipidemia, gout and CKD stage 3 and follows up with Dr. Herrera is here for Follow-up. Plan as follows Hypertension - Blood pressure is elevated in the office today, she was recently seen by non destructive testing specialist recommended to get back on amlodipine 5 mg. Advised him being compliant. Advised to reduce his salt intake and increase hydration. We will check blood pressure in the 1-2 weeks. Check comp Chronic kidney disease stage IIIa - Stable at this point. She follows up with Dr. Hererra on a regular basis and there has been no changes. Hyperlipidemia - Previous lipid panel was abnormal. She is currently on atorvastatin 40 mg. Diet modification discussed. Check lipid panel and will make adjustments based on the results Chronic gout - Recent uric acid is within normal limits. Continue on allopurinol GERD - Stable. Continue on pantoprazole MDD - Mood is stable on current regimen. Continue on sertraline 100 mg and prazosin and hydroxyzine as needed DVT of the left upper extremity - She does follow with automobile assembly supervisor. Continue on Eliquis General concerns have been discussed. Screening blood work before next appointment I have rendered the services for this patient under direct supervision of Dr. Nunn, who did not see the patient but was available upon request 08/28/2024 Acute embolism and thrombosis of deep veins of left upper extremity (ICD-10 - I82.622) Mrs. Acevedo is a 69-year-old lady with hypertension, mixed hyperlipidemia, gout and CKD stage [address] and follows up with Dr. Herrera is here for Follow-up. Plan as follows Hypertension - Blood pressure is elevated in the office today, she was recently seen by non destructive testing specialist recommended to get back on amlodipine 5 mg. Advised him being compliant. Advised to reduce his salt intake and increase hydration. We will check blood pressure in the 1-2 weeks. Check comp Chronic kidney disease stage IIIa - Stable at this point. She follows up with Dr. Herrera on a regular basis and there has been no changes. Hyperlipidemia - Previous lipid panel was abnormal. She is currently on atorvastatin 40 mg. Diet modification discussed. Check lipid panel and will make adjustments based on the results Chronic gout - Recent uric acid is within normal limits. Continue on allopurinol GERD - Stable. Continue on pantoprazole MDD - Mood is stable on current regimen. Continue on sertraline 100 mg and prazosin and hydroxyzine as needed DVT of the left upper extremity - She does follow with automobile assembly supervisor. Continue on Eliquis General concerns have been discussed. Screening blood work before next appointment I have rendered the services for this patient under direct supervision of Dr. Nunn, who did not see the patient but was available upon request 01/27/2024 Gastro-esophageal reflux disease without esophagitis (ICD-10 [...] stable on current regimen. She goes to [facility]. DVT. Continue Eliquis 5 MG twice a day. Abnormal results of Pain in left knee. Ordered x-ray of the left knee Overweight. She lost 2.5 lbs since last visit. Advised dietary restrictions and regimental exercise. Goal is to lose 5-6 lbs a month. Eye screening. She sees her information systems architect regularly. Dental screening. She sees dentist regularly. [...] this note under HIPAA compliance and under [place] law mandated for scribe services. Patient aware [...] stable on current regimen. She goes to [facility]. DVT. Continue Eliquis 5 MG twice a day. Abnormal results of Pain in left knee. Ordered x-ray of the left knee Overweight. She lost 2.5 lbs since last visit. Advised dietary restrictions and regimental exercise. Goal is to lose 5-6 lbs a month. Eye screening. She sees her information systems architect regularly. Dental screening. She sees dentist regularly. [...] this note under HIPAA compliance and under [place] law mandated for scribe services. Patient aware [...] stable on current regimen. She goes to [facility]. DVT. Continue Eliquis 5 MG twice a day. Abnormal results of Pain in left knee. Ordered x-ray of the left knee Overweight. She lost 2.5 lbs since last visit. Advised dietary restrictions and regimental exercise. Goal is to lose 5-6 lbs a month. Eye screening. She sees her information systems architect regularly. Dental screening. She sees dentist regularly. [...] this note under HIPAA compliance and under [place] law mandated for scribe services. Patient aware [...] (PT/INR) 05/29 Prothrombin Time with INR (PT/INR) 09/22 Prothrombin Time with INR (PT/INR) 04/10 Basic Metabolic Panel 10/31/2018 Lipid Panel 08/26/2018 Urine Microalbumin (Random) 08/26/2018 Iron and [id number] 02/12/2024 Ferritin-[id number] 02/12/2024 CBC With Differential/Platelet-[id number] Lipid Panel-[id number] 08/28/2024 Comp. Metabolic Panel [id number] 2024 Next Appt Details Provider Name:Stan Villegas julia, 03/04/2025 02:30:00 PM, [address] [place] [address], [id number], Insurance Providers Payer Name Payer Address Payer Phone Subscriber Number Group Number Insured Name Patient Relationship to Insured Coverage Start Date Coverage End Date [facility] [address] [place] [id number] [phone] [id number] Christy Acevedo Self - patient is the insured Medical (General) History Medical History History ICD Code hypertension, benign hyperlipidemia acid reflux gout Anxiety disorder- at [facility] DVT -LE CKD Stage 3 Leukema in remission and see Dr Gordo espinal [facility] Major depression 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
--- OUTSIDE RECORDS SUMMARY | 2024-12-22 15:00 | XMS_ITS | Clinical Summary ---
Author Organization [email or web address] [facility] ity Address [address] [place] [address] Care Team Providers Care Electrician Rectifier Maintenance Name Role Phone Leighann Mcgrath MD Primary Care Provider [phone] Social History Tobacco Use Types Packs/Day Years [...] Vaccines (1 of 2) 08/23/1975 RSV Immunization Adult Patie nts (1 - Risk 60-74 years 1-dose series) 2016 Cholesterol Screening (Lipid Panel) 05/20/2022 Colorectal Cancer Screening: Colonoscopy 05/20/2022 Depression Screening 05/20/2022 Falls Risk Assessment 05/20/2022 Hepatitis C Screening 05/20/2022 Medicare Annual Wellness Visit 05/20/2022 Osteoporosis Screening (Bone Density Screening) 05/20/2022 Social Influencers of Health Screening 05/20/2022 Hypertension/CHF/CAD Annual BMP Blood Test 08/18/2024 Influenza Vaccine (#1) 2025 04/27/2021 HIB Vaccines Aged Out No longer eligi [...] age to complete this topic Meningococcal B Vaccine Aged Out No l onger eligible based on patient's age to complete this topic RSV Immunization Patients Un koko 20 months Aged Out No longer eligible b ased on patient's age to complete this topic Varicella Vaccines Aged Out No longer eligible based on patient's age to complete this topic Care Teams Electrician Rectifier Maintenance Relationship Specialty Start Date End Date Leighann Mcgrath MD [address] [place] [address] PCP - General 05/19/21
--- OUTSIDE RECORDS SUMMARY | 2024-12-22 15:00 | XMS_ITS | Clinical Summary ---
Author Organization [facility] Address [address] [facility] [address] [place] [address] Phone Care Team Providers Care Technical Marketing Engineer Name Role Phone Leighann Mcrgath MD Primary Care Provider [phone] Allergies No known active allergies Medications allopurinol [...] left femoral vein 02/28/2018 09/27/2020 Overview (09/27/2020): [facility] (03/18/18): anticoagulation for 3-6 months Chronic gouty arthritis 07/05/201709/15 Dysphagia 07/05/2017 09/27/2020 Gastro-esophageal reflux dis ease without esophagitis 07/05/2017 09/27/2020 Overview (09/27/2020): Since ~2014 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 Hyperlipidemia 07/05/2017 09/27/2020 Immunizations Immunization Administration Dates Next Due Influenza Split High [...] Comments Breast Cancer Screening 1955 Pneumococcal Vaccine: 50+ Ye ars (1 of 2 - PCV) 08/23/1975 Colorectal Cancer Screening: Annual FOBT 2005 Colorectal Cancer Screening: Colonoscopy 2005 Colorectal Cancer Screening: Sigmoidoscopy 2005 Influenza Vaccine (#1) 2025 04/27/2021 Hepatitis B Vaccine Aged Out No longe r eligible based on patient's age to complete this topic Insurance MCR ([id number]) [place] [id number] MCR ([id number]) Care Teams Technical Marketing Engineer Relationship Specialty Start Date End Date Leighann Mcgrath MD [address] [place] [address] PCP - General 06/27/20
--- OUTSIDE RECORDS SUMMARY | 2024-12-22 15:00 | XMS_ITS | Clinical Summary ---
Author Organization [facility] Address [address] [place] [address] Care Team Providers Care Wearing Apparel Presser Name Role Phone Leighann Mcgrath MD Primary Care Provider [phone] Allergies No known active allergies Medications Medication [...] 01/28/2020 Activ e ergocalciferol (VITAMIN D2) capsule 59755 units 1 capsule 0 05/07/2018 Active hydrOXYzine [...] 82 04/24/2022 2:25 PM EST Temperature 36.5 C (97.7 F) 04/24/2022 2:25 PM EST Respiratory Rate - - Oxygen Saturation 100% [...] 1 - PCV) 2021 Influenza Vaccine (#1) 2025 04/27/2021 RSV Adult > 60+ Yrs or Pregn ant (1 - 1-dose 75+ series) 08/23/2031 Hepatitis B Vaccines Aged Out No long er eligible based on patient's age to complete this topic RSV Ped < 20 months Aged Out No longe r eligible based on patient's age to complete this topic Care Teams Wearing Apparel Presser Relationship Specialty Start Date End Date Leighann Mcgrath MD [address] [place] [address] PCP - General Internal Medicine 05/19/21
== END 2024-12-22 14:27 | disposition home or self-care (01) ==
LOC: HO.HKAS 14:09
PROVIDERS: PCP Hospitalist; Visit Provider Internal Medicine Nephrology
DX: N25.81 Secondary hyperparathyroidism of renal origin (principal); I10 Essential (primary) hypertension; N18.31 Chronic kidney disease, stage 3a
CPT/HCPCS: 99214

== ENCOUNTER → 2024-12-22 14:09 | Outpatient (BNVA) | payer OTHER, SELFPAY | PROVIDERS: PCP Hospitalist; Visit Provider Internal Medicine Nephrology | DX: N18.31 Chronic kidney disease, stage 3a (principal); I10 Essential (primary) hypertension; N25.81 Secondary hyperparathyroidism of renal origin | CPT/HCPCS: 99212 ==

== ENCOUNTER 2025-05-05 08:02 | Outpatient (REF) | payer OTHER, SELFPAY ==
--- OUTSIDE RECORDS SUMMARY | 2024-08-25 08:30 | XMS_ITS ---
Author Organization [facility] Address [address] [facility] [address] [place] [address] Care Team Providers Care Physician In Private Practice Name Role Phone ERASTO NUNN Primary Care Provider Stan Jensen Unavailable [phone] REASON FOR VISIT 6 month f/u Encounters Encounter Location Date Provider Diagnosis [facility] [address] [facility] [address] [place] [address] 08/25/2024 Stan Jensen Plan Of Treatment Next Appt Details Provider Name:Stan dumont, 09/21/2025 03:00:00 PM, [address] [facility] [address], [place], [address], Progress Notes * ACEVEDOChristyDOB:1955 (69 yo F)Acc No.[id number]:08/25/2024 Progress Notes Patient: Christy LISA Appointment Provider: Delbert Jensen :1955 A ge:69 Y S ex:Female Date:08/25/2024 Phone: Address:[address] [facility] [address] [facility] Pcp:ERASTO NUNN Subjective: * Chief Complaints: * 1 . 6 month f/u. * Medical History: Objective: * Vitals: Assessment: Plan: * Treatment: * Images: * Electronic signature of Adia Jensen PA-C on 05/05/2025 at 03:32 PM EST Sign off status: Pending * Appointment Provider: Delbert Jensen Date: 0 08/25/2024 Generated for Kady edwards/Jessica/Haleigh on: 1 07/05/2024 03:32 PM EST
--- OUTSIDE RECORDS SUMMARY | 2025-03-04 09:30 | XMS_ITS ---
Author Organization [facility] Address [address] [facility] [address] [place] [address] Care Team Providers Care Case Filler Name Role Phone ERASTO NUNN Primary Care Provider Stan Jensen Unavailable [phone] REASON FOR VISIT Medicare Wellness Encounters Encounter Location Date Provider Diagnosis [facility] [address] [facility] [address] [place] [address] 03/04/2025 Stan Jensen Plan Of Treatment Next Appt Details Provider Name:Stan dumont, 09/21/2025 03:00:00 PM, [address] [facility] [address], [place], [address], Progress Notes * CURTISChristyDOB:1955 (69 yo F)Acc No.[id number]:03/04/2025 Progress Note Patient: Christy LISA Appointment Provider: Delbert Jensen :1955 A ge:69 Y S ex:Female Date:03/04/2025 Phone: Address:[address] [facility] [address], [place], [place] Pcp:ERASTO NUNN Subjective: * Chief Complaints: * 1 . Medicare Wellness. * Medical History: Objective: * Vitals: Assessment: Plan: * Treatment: * Preventive Medicine: C OVID FLU TDAP SHINGRIX RSV BMD COLONOSCOPY REGISTRAR NURSES' REGISTRY MAMMOGRAM EYE EXAM. * Images: * Electronic signature of Adia Jensen PA-C on 05/05/2025 at 03:32 PM EST Sign off status: Pending * Appointment Provider: Delbert Jensen Date: 0 03/04/2025 Generated for Kady edwards/Jessica/Haleigh on: 1 07/05/2024 03:32 PM EST
[2025-05-05 13:44] LABS: MANUAL DIFF FLAG NO
[2025-05-05 13:59] LABS: Hematocrit 38.3 % (37.0-47.0); Hemoglobin 11.7 g/dl (12.0-16.0); Imm Gran Abs Auto 0.02 X10*3/uL (0.00-0.03); Imm Gran Pct Auto 0.4 % (0.0-0.4); Lymphocytes Absolute Auto 2.3 X10*3/uL (1.2-4.9); Mean Corpuscular HGB Conc 30.5 g/dl (31.0-35.0); Mean Corpuscular Hemoglobin 24.5 pg (27.0-33.0); Mean Corpuscular Volume 80.1 fL (80.0-98.0); NRBC Abs Auto 0.000 X10*3/uL (0.0-0.012); NRBC Pct Auto 0.0 /100WBC (0.0-0.2); Platelet Count 155 X10*3/uL (160-400); Red Blood Count 4.78 X10*6/uL (4.20-5.50); White Blood Count 5.2 X10*3/uL (4.8-10.8)
[2025-05-05 14:34] LABS: Parathyroid Hormone Intact 125.2 pg/mL (8.7-77.1); Protein/Creatinine Ratio, Ur 0.08 (<0.2); Total Protein Urine Random 9 mg/dL (<12)
[2025-05-05 14:52] LABS: Anion Gap 13 (12-20); Blood Urea Nitrogen 41 mg/dL (9-16); Calcium 9.6 mg/dL (8.4-10.2); Carbon Dioxide 23 mmol/L (22-29); Chloride 110 mmol/L (96-108); Estimated Glomerular Filt Rate 35; Potassium 4.4 mmol/L (3.3-5.1); Sodium 142 mmol/L (135-145)
--- OUTSIDE RECORDS SUMMARY | 2025-05-05 15:32 | XMS_ITS | Clinical Summary ---
Author Organization [facility] Address [address] [facility] [address] [address] [place] [address] Phone Care Team Providers Care Copy Director Name Role Phone Leighann Mcgrath MD Primary Care Provider [phone] Allergies No known active allergies Medications allopurinol [...] index (BMI) 60.0-69.9, adult 07/24/2021 07/24/2021 Acute thrombosis of deep vei n of left upper extremity 09/27/2020 09/27/2020 Cough 09/27/2020 09/27/2020 Generalized anxiety disorder 09/27/2020 09/27/2020 Lymphedema 09/27/2020 09/27/2020 Moderate recurrent major depression 09/27/2020 09/27/2020 Non-toxic uninodular goiter 09/27/2020 09/27/2020 Pain in right knee 09/27/2020 Acute thrombosis of left femoral vein 02/28/2018 09/27/2020 Overview (09/27/2020): [facility] (03/18/18): anticoagulation for 3-6 months Chronic [...] this topic Insurance MCR ([id number]) [place] [id number] MCR ([id number]) Care Teams Copy Director Relationship Specialty Start Date End Date Leighann Mcgrath MD [address] [place] [address] PCP - General 06/27/20
--- OUTSIDE RECORDS SUMMARY | 2025-05-05 15:32 | XMS_ITS | Clinical Summary ---
Author Organization [facility] ity Address [address] [place] [address] Care Team Providers Care Fur Feeder Name Role Phone Leighann Mcgrath MD Primary Care Provider [phone] Social History Tobacco Use Types Packs/Day Years [...] Last Done Comments Breast Cancer Screening 1955 Colorectal Cancer Screening: Colonoscopy 1955 COVID-19 Vaccine (#1) 1961 DTaP,Tdap,and Td Vaccines (1 - Tdap) 08/23/1975 Pneumococcal Vaccine: 50+ Ye ars (1 of 2 - PCV) 08/23/1975 Zoster Vaccines (1 of 2) 08/23/1975 RSV Immunization Adult Patie nts (1 - Risk 50-74 years 1-dose series) 2006 Cholesterol Screening (Lipid Panel) 05/20/2022 Falls Risk Assessment 05/20/2022 Hepatitis C Screening 05/20/2022 Medicare Annual Wellness Visit 05/20/2022 Osteoporosis Screening (Bone Density Screening) 05/20/2022 Social Influencers of Health Screening 05/20/2022 Depression Screening 06/17/2024 Hypertension/CHF/CAD Annual BMP Blood Test 08/18/2024 Influenza [...] age to complete this topic Care Teams Fur Feeder Relationship Specialty Start Date End Date Leighann Mcgrath MD [address] [place] [address] PCP - General 05/19/21
--- OUTSIDE RECORDS SUMMARY | 2025-05-05 15:32 | XMS_ITS | Encounter Summary ---
Author Organization [facility] Address [address] [place] [address] Phone Care Team Providers Care Hatch Boss Name Role Phone Leighann Mcgrath MD Primary Care Provider [phone] Encounter Details Date Type Department Care Team (Late st Contact Info) Description 07/25/2021 Documentation Only [facility] [address] [place] [address] Dain Herrera MD [address] [place] [address] Social History Tobacco Use Types Packs/Day Years [...] AM EST documented as of this encounter Functional Status * Question Answer Date of Assessment Author BP 170/60 07/25/2021 3:50 PM EST Aimee Ambrocio MA Pulse 105 07/25/2021 3:50 PM Aimee Rondon MA SpO2 98 07/25/2021 3:50 PM Aimee Rondon MA Weight 2678.4 07/25/2021 3:50 PM Aimee Rondon MA * BP Location Answer Date of Assessment Author Left upper arm 07/25/2021 3:50 PM Patrick Rondon [place] * [place] [address] 07/25/2021 3:50 PM Aimee Rondon [place] Weight 2678.4 07/25/2021 3:50 PM Aimee Rondon MA * BP Location Answer Date of Assessment Author Left upper arm 07/25/2021 3:50 PM Patrick Rondon [place] documented as of this encounter Plan of Treatment Not on file documented as of this encounter Visit Diagnoses Not on filedocumented in this encounter Care Teams Hatch Boss Relationship Specialty Start Date End Date Leighann Mcgrath MD [address] [place] [address] PCP - General 06/27/20 documented as of this encounter
--- OUTSIDE RECORDS SUMMARY | 2025-05-05 15:32 | XMS_ITS ---
Author Name [facility] Organization Unknown Care Team Organization Name Specialty Phone Email Start Date End Da te [facility] Leighann Mcgrath Primary Care 04/24/2022 024
--- OUTSIDE RECORDS SUMMARY | 2025-05-05 15:32 | XMS_ITS | Clinical Summary ---
Author Organization [employer] Address [address] [facility] [address] [place] [address] Care Team Providers Care Airbrush Artist Name Role Phone Unavailable Primary Care Provider Unavailabl e Social History Tobacco Use Types Packs/Day Years Used Date Smoking Tobacco: Never Assessed Sex and Gender Information Value Date Recorded Sex Assigned at Male 03/24/2025 10:53 AM EDT Legal Sex Female 10:36 AM EDT Gender Identity Not on file Sexual Orientation Not on file Plan of Treatment Upcoming Encounters Date Type Department Care Team ([facility] st Contact Info) Description 05/28/2025 9:00 AM EST Office Visit [facility] MEDICINE [address] [place] [address] Laurel Harrison, [place] [address] [place] [address] Health Maintenance Due Date Last Done Comments CT Colonography 1955 Colonoscopy 1956 Colorectal Cancer Screening 1956 Depression Screening 1956 FIT DNA/Cologuard 1956 FIT 1956 FOBT 1956 Lipid Panel 1956 SDOH Screening 1956 Sigmoidoscopy 1956 Alcohol/Substance Use Screening 1968 Tobacco Screening 1968 Hepatitis C Screening 1974 DTaP/Tdap/Td Vaccines (1 - Tdap) 08/23/1975 Zoster Vaccines (1 of 2) 2006 COVID-19 Vaccine ( season) 2025 04/04/2024, 05/22/2021, 09/22/2020, Additional history exists RSV Patients and Patients Aged 60 years or older (1 - 1-dose 75+ series) 08/23/2031 Pneumococcal Vaccine: 50+ Years Completed 02/15/2023 Influenza Vaccine Completed 02/27/2025, , 02/15/2023, Additional history exists HIB Vaccines Aged Out No longer eligi [...] patient's age to complete this topic Meningococcal Vaccine Aged Out No aayush elaine eligible based on patient's age to complete this topic RSV under 20 months Aged Out No longe r eligible based on patient's age to complete this topic Rotavirus Vaccines Aged Out No longer eligible based on patient's age to complete this topic Insurance [facility] LONG-TERM OPTIONS (O D-SNP) [place] [id number]
--- OUTSIDE RECORDS SUMMARY | 2025-05-05 15:32 | XMS_ITS | Patient Health Record ---
Author Organization [facility] Address [address] [place] [address] Care Team Providers Care Buckle Attacher Name Role Phone ERASTO NUNN Primary Care Provider TamelaStan lopez Unavailable [phone] Allergies No Known Allergies Results Component Value Reference Range Notes Lipid Panel-[id number] Reviewed date:03/04/2025 12:23:59 PM Interpretation: Performing Lab:[facility], [address] [facility], Phone - [phone], Director - Anusha Notes/Report: Cholesterol, Total 173 100-199 mg/dL Triglycerides 152 0-149 mg/dL HDL Cholesterol 49 >39 mg/dL VLDL Cholesterol Mik 27 5-40 mg/dL LDL Chol Calc (NIH) 97 0-99 mg/dL Lipid Panel-[id number] Reviewed date:09/10/2024 07:59:35 AM Interpretation: Performing Lab:[facility], [address] [facility], Phone - [phone], Director - Enmanuely Notes/Report: Cholesterol, Total 149 100-199 mg/dL Triglycerides 133 0-149 mg/dL HDL Cholesterol 51 >39 mg/dL VLDL Cholesterol Mik 23 5-40 mg/dL LDL Chol Calc (NIH) 75 0-99 mg/dL Albumin/Creatinine Ratio,Uri ne-[id number] Reviewed date:09/10/2024 05:22:46 PM Interpretation: Performing Lab:[facility], [address] [facility], Phone - [phone], Director - MDSheldon Notes/Report: Creatinine, Urine 134.0 Not Estab. mg/dL Albumin, Urine 169.8 Not Estab. ug/mL Alb/Creat Ratio 127 0-29 mg/g creat Normal: 0 - 29 Moderately increased: 30 - 300 Severely increased: >300 Reason For Referral No Information Medications Medication SIG (Take, Route, Frequency, Duration) Notes Start Date End Date Status amLODIPine Besylate 5 MG TAKE 1 TABLET B Y MOUTH EVERY DAY; Duration: 90 days Not-Taking Warfarin Sodium 3 MG 1 tablet Orally Onc e a day; Duration: 30 day(s) 08/15/2018 Not-Taking Omeprazole 40 MG 1 capsule 1/2 to 1 h our before morning meal Orally Once a day; Duration: 90 days Not-Taking Allopurinol 300 MG TAKE 1 TABLET BY PINA TH EVERY DAY; Duration: 90 Active Voltaren 1 % as directed Transder mal bid; Duration: 30 days 01/28/2020 Not-Takin g Atorvastatin Calcium 40 MG TAKE 1 TABLET BY MOUTH EVERY DAY; Duration: 90 Active Warfarin Sodium 5 MG 1 tablet Orally Onc e a day; Duration: 30 day(s) Not-Taking Compression Stockings 15-20mmhg to wear daily for pedal edema and hx of DVT; Duration: 30 05/07/2018 Not-Taking PARoxetine HCl 30 MG 1 tablet in the mor sandy Orally Once a day; Duration: 90 days Not-Taking hydrOXYzine HCl 25 MG 1 tablet as needed Orally every 8 hrs; Duration: 90 days Not-Taking Vitamin D (Ergocalciferol) 1.25 MG (97815 UT) TAKE 1 CAPSULE BY MOUTH EVERY WEEK Orally Once weekly; Duration: 30 days Not-Taking Prazosin HCl 1 MG 1 capsule at bedtime Orally Once a day Not-Taking Pneumovax 23 25 MCG/0.5ML as directed In jection 1; Duration: 362 days 04/25/2021 Not-Taking Sertraline HCl 100 MG 1 tablet Orally On ce a day Not-Taking Ergocalciferol 18294 UNIT 1 capsule Oral ly once a week; Duration: 30 day(s) 05/07/2018 Not-Taking Losartan Potassium 25 MG TAKE 1 TABLET B Y MOUTH EVERY DAY; Duration: 90 Not-Taki ng Pantoprazole Sodium 40 MG 1 tablet Orall y as needed Not-Taking Shingrix 50 MCG/0.5ML as directed Intramuscular 1; Duration: 365 days 04/25/2021 Not-Taking Blood Pressure Cuff - Use to check blood pressure daily Dx: I10; Duration: 90 days 04/01/2025 Active Eliquis 5 MG TOME 1 TABLETA POR V IA ORAL DOS VECES AL KALIE FOR 90 DAYS; Duration: 90 Active Immunizations Vaccine Route Administration Date Status Comme nts COVID Moderna Unknown 08/26/2020 Administered COVID Moderna Unknown 09/22/2020 Administered COVID Moderna Unknown 05/22/2021 Administered Flu Unknown 02/15/2023 Administered Fluzone QD Unknown 04/27/2021 Administered High Dose Fluzone +65 Unknown 04/04/2024 Administered Influenza High Dose Unknown 02/27/2025 Administered Influenza, high dose seasonal Unknown 04/27/2021 Admini stered Influenza, seasonal, injecta ble (split), for 3 yrs and up Unknown 04/17/2015 Administered Prevnar 20 Unknown 02/15/2023 Administered Social History Tobacco Use: Social History Observation [...] Status W/U Status Risk Notes Problem Leukemia (57982795) Leukemia, unspecified not having achieved remission (C95.90) Active confirmed Problem Non-toxic single thyroid nodule (948314608) Nontoxic single thyroid nodule (E04.1) Active confirmed Problem Vitamin D deficiency (44389056) Vitamin D deficiency, unspecified (E55.9) Active confirmed Problem Mixed hyperlipidemia (697716686) Mixed hyperlipidemia (E78.2) Active confirmed Problem Moderate recurrent major depression (76191884) Major depressive disorder, recurrent, moderate (F33.1) Active confirmed Problem Generalized anxiety disorder (80345183) Generalized anxiety disorder (F41.1) Active confirmed Problem Embolism from thrombosis of vein of lower extremity (055507886) 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) Active confirmed Problem Acute deep venous thrombosis of left upper extremity (011933716528634) Acute embolism and thrombosis of deep veins of left upper extremity (I82.622) Active confirmed Problem Lymphedema (719118788) Lymphedema, not elsewhere classified (I89.0) Active confirmed Problem Gastro-esophageal reflux disease without esophagitis (709193075) Gastro-esophageal reflux disease without esophagitis (K21.9) Active confirmed Problem Chronic gouty arthritis (72554127) Chronic gout, unspecified, without tophus (tophi) (M1A.9XX0) Active confirmed Problem Osteoarthritis of knee (505034974) Unilateral primary osteoarthritis, left knee (M17.12) Active confirmed Problem Osteoarthritis of knee (030392658) Osteoarthritis of knee, unspecified (M17.9) Active confirmed Problem Age-related osteoporosis (273849962) Age-related osteoporosis without current pathological fracture (M81.0) Active confirmed Problem Chronic kidney disease stage 3 (disorder) (273249967) Chronic kidney disease, stage 3 (moderate) (N18.3) Active confirmed Problem Proteinuria (32809562) Proteinuria, unspecified (R80.9) Active confirmed Problem Essential hypertension (75816421) Essential (primary) hypertension (I10) Active confirmed Problem Chronic kidney disease stage 3A (disorder) (810863333) Chronic kidney disease, stage 3a (N18.31) Active confirmed Problem Chronic kidney disease stage 3B (disorder) (374047075) Chronic kidney disease, stage 3b (N18.32) Active confirmed Problem History of disease caused by Severe acute respiratory syndrome coronavirus 2 (situation) (4789684957970850 05) Personal history of COVID-19 (Z86.16) Active confirmed Vital Signs Heart Rate 81 /min 03/23/2025 Temperature 97.7 degrees Fahrenheit 03/23/2025 Blood pressure diastolic 70 mm Hg 03/23/2025 Oximetry 98 % 03/23/2025 Height 61.26 in 03/23/2025 Blood pressure systolic 135 mm Hg 03/23/2025 Weight 138.9 lbs 03/23/2025 BMI 26.02 kg/m2 03/23/2025 Encounters Encounter Location Date Provider Diagnosis [facility] [address] [address] 08/28/2024 Stan Jensen Essential (primary) hypertension I10 ; Chronic kidney disease, stage 3a N18.31 ; Mixed hyperlipidemia E78.2 ; Chronic gout, unspecified, without tophus (tophi) M1A.9XX0 ; Gastro-esophageal reflux disease without esophagitis K21.9 ; Major depressive disorder, recurrent, moderate F33.1 and Acute embolism and thrombosis of deep veins of left upper extremity I82.622 [facility] [address] [facility] [address] [place] [address] 09/10/2024 Ghadeer Walterloum Essential (primary) hypertension I10 [address] [place] [address] 03/23/2025 Ghslyer Walterloum Essential (primary) hypertension I10 ; Annual visit for general adult medical examination without abnormal findings Z00.00 ; Chronic kidney disease, stage 3b N18.32 ; Mixed hyperlipidemia E78.2 ; Chronic gout, unspecified, without tophus (tophi) M1A.9XX0 ; Gastro-esophageal reflux disease without esophagitis K21.9 ; Major depressive disorder, recurrent, moderate F33.1 ; Acute embolism and thrombosis of deep veins of left upper extremity I82.622 ; Encounter for screening mammogram for malignant neoplasm of breast Z12.31 and Encounter for screening for malignant neoplasm of colon Z12.[address] [place] [address] 08/25/[address] [place] [address] 10/07/[address] [place] [address] 12/24/[address] [place] [address] 12/28/[address] [place] [address] [facility] [place] [address] 03/23/[address] [place] [address] 03/23/2025 Stan Jensen Encounter for screen ing for malignant neoplasm of colon Z12.11 [facility] [address] [facility] [address] [place] [address] 04/01/2025 Stan Jensen Assessments Encounter Date Diagnosis (ICD Code) Assessment Notes Treatment Notes Treatment Clinical Notes Section Notes 08/28/2024 Essential (primary) hypertension (ICD-10 - I10) Mrs. Acevedo is a 69-year-old lady with hypertension, mixed hyperlipidemia, gout and CKD stage 3 and follows up with Dr. Herrera is here for Follow-up. Plan as follows Hypertension - Blood pressure is elevated in the office today, she was recently seen by sales operations lead recommended to get back on amlodipine 5 [...] upper extremity - She does follow with coastal and estuary specialist. Continue on Eliquis General concerns have been [...] office today, she was recently seen by sales operations lead recommended to get back on amlodipine 5 [...] upper extremity - She does follow with coastal and estuary specialist. Continue on Eliquis General concerns have been [...] the patient but was available upon request 03/23/2025 Annual visit for general adult medical examination without abnormal findings (ICD-10 - Z00.00) Mrs. Acevedo is a 69-year-old lady with hypertension, mixed hyperlipidemia, gout and CKD stage 3 and follows up with Dr. Herrera is here for Medicare wellness visit. Plan as follows Hypertension - Blood pressure is within acceptable range. Continue with diet modification and low salt intake, she does follow up with sales operations lead. Chronic kidney disease stage IIIb - Stable at this point. She is not in volume overload. Avoid NSAIDs and nephrotoxins agents. She follows up with Dr. Herrera on a regular basis and there has been no changes. Hyperlipidemia - Triglyceride has increased compared to before, goal to be below 150. Diet modification discussed. Continue on atorvastatin 40 mg. Diet modification discussed. Check lipid panel and will make adjustments based on the results Chronic gout -. Stable onon allopurinol, Check uric acid GERD. - Controlled with diet modification DVT of the left upper extremity - She does follow with coastal and estuary specialist. Continue on Eliquis Vision. She is up-to-date Hearing. No problem Dermatology. No suspicious skin lesions at this point Screening for breast cancer. Referred patient for mammogram Screening for colon cancer. She had Cologuard in 2020 we will repeat again She is up to date and age specific vaccinations, declines shingles for now HCP. Margie Hoang [phone] FULL CODE She does have a [employer] home health for home with ADLS and IADLs General concerns have been discussed. Screening blood work before next appointment I have rendered the services for this patient under direct supervision of Dr. Nunn, who did not see the patient but was available upon request 03/23/2025 Encounter for screening for malignant neoplasm of colon (ICD-10 - Z12.11) 03/23/2025 Essential (primary) hypertension (ICD-10 - I10) Mrs. Acevedo is a 69-year-old lady with hypertension, mixed hyperlipidemia, gout and CKD stage 3 and follows up with Dr. Herrera is here for Medicare wellness visit. Plan as follows Hypertension - Blood pressure is within acceptable range. Continue with diet modification and low salt intake, she does follow up with sales operations lead. Chronic kidney disease stage IIIb - Stable at this point. She is not in volume overload. Avoid NSAIDs and nephrotoxins agents. She follows up with Dr. Herrera on a regular basis and there has been no changes. Hyperlipidemia - Triglyceride has increased compared to before, goal to be below 150. Diet modification discussed. Continue on atorvastatin 40 mg. Diet modification discussed. Check lipid panel and will make adjustments based on the results Chronic gout -. Stable onon allopurinol, Check uric acid GERD. - Controlled with diet modification DVT of the left upper extremity - She does follow with coastal and estuary specialist. Continue on Eliquis Vision. She is up-to-date Hearing. No problem Dermatology. No suspicious skin lesions at this point Screening for breast cancer. Referred patient for mammogram Screening for colon cancer. She had Cologuard in 2020 we will repeat again She is up to date and age specific vaccinations, declines shingles for now HCP. Margie Hoang [phone] FULL CODE She does have a [employer] home health for home with ADLS and IADLs General concerns have been discussed. Screening blood work before next appointment I have rendered the services for this patient under direct supervision of Dr. Nunn, who did not see the patient but was available upon request 03/23/2025 Chronic kidney disease, stage 3b (ICD-10 - N18.32) Mrs. Acevedo is a 69-year-old lady with hypertension, mixed hyperlipidemia, gout and CKD stage 3 and follows up with Dr. Herrera is here for Medicare wellness visit. Plan as follows Hypertension - Blood pressure is within acceptable range. Continue with diet modification and low salt intake, she does follow up with sales operations lead. Chronic kidney disease stage IIIb - Stable at this point. She is not in volume overload. Avoid NSAIDs and nephrotoxins agents. She follows up with Dr. Herrera on a regular basis and there has been no changes. Hyperlipidemia - Triglyceride has increased compared to before, goal to be below 150. Diet modification discussed. Continue on atorvastatin 40 mg. Diet modification discussed. Check lipid panel and will make adjustments based on the results Chronic gout -. Stable onon allopurinol, Check uric acid GERD. - Controlled with diet modification DVT of the left upper extremity - She does follow with coastal and estuary specialist. Continue on Eliquis Vision. She is up-to-date Hearing. No problem Dermatology. No suspicious skin lesions at this point Screening for breast cancer. Referred patient for mammogram Screening for colon cancer. She had Cologuard in 2020 we will repeat again She is up to date and age specific vaccinations, declines shingles for now HCP. Margie Hoang [phone] FULL CODE She does have a [employer] home health for home with ADLS and IADLs General concerns have been discussed. Screening blood [...] office today, she was recently seen by sales operations lead recommended to get back on amlodipine 5 [...] upper extremity - She does follow with coastal and estuary specialist. Continue on Eliquis General concerns have been discussed. Screening blood work before next appointment I have rendered the services for this patient under direct supervision of Dr. Nunn, who did not see the patient but was available upon request 08/28/2024 Chronic gout, unspecified, without tophus (tophi) (ICD-10 - M1A.9XX0) Mrs. Acevedo is a 69-year-old lady with hypertension, mixed hyperlipidemia, gout and CKD stage 3 and follows up with Dr. Herrera is here for Follow-up. Plan as follows Hypertension - Blood pressure is elevated in the office today, she was recently seen by sales operations lead recommended to get back on amlodipine 5 [...] upper extremity - She does follow with coastal and estuary specialist. Continue on Eliquis General concerns have been discussed. Screening blood work before next appointment I have rendered the services for this patient under direct supervision of Dr. Nunn, who did not see the patient but was available upon request 03/23/2025 Mixed hyperlipidemia (ICD-10 - E78.2) Mrs. Acevedo is a 69-year-old lady with hypertension, mixed hyperlipidemia, gout and CKD stage 3 and follows up with Dr. Herrera is here for Medicare wellness visit. Plan as follows Hypertension - Blood pressure is within acceptable range. Continue with diet modification and low salt intake, she does follow up with sales operations lead. Chronic kidney disease stage IIIb - Stable at this point. She is not in volume overload. Avoid NSAIDs and nephrotoxins agents. She follows up with Dr. Herrera on a regular basis and there has been no changes. Hyperlipidemia - Triglyceride has increased compared to before, goal to be below 150. Diet modification discussed. Continue on atorvastatin 40 mg. Diet modification discussed. Check lipid panel and will make adjustments based on the results Chronic gout -. Stable onon allopurinol, Check uric acid GERD. - Controlled with diet modification DVT of the left upper extremity - She does follow with coastal and estuary specialist. Continue on Eliquis Vision. She is up-to-date Hearing. No problem Dermatology. No suspicious skin lesions at this point Screening for breast cancer. Referred patient for mammogram Screening for colon cancer. She had Cologuard in 2020 we will repeat again She is up to date and age specific vaccinations, declines shingles for now HCP. Margie Hoang [phone] FULL CODE She does have a [employer] home health for home with ADLS and IADLs General concerns have been discussed. Screening blood work before next appointment I have rendered the services for this patient under direct supervision of Dr. Nunn, who did not see the patient but was available upon request 03/23/2025 Chronic gout, unspecified, without tophus (tophi) (ICD-10 - M1A.9XX0) Mrs. Acevedo is a 69-year-old lady with hypertension, mixed hyperlipidemia, gout and CKD stage 3 and follows up with Dr. Herrera is here for Medicare wellness visit. Plan as follows Hypertension - Blood pressure is within acceptable range. Continue with diet modification and low salt intake, she does follow up with sales operations lead. Chronic kidney disease stage IIIb - Stable at this point. She is not in volume overload. Avoid NSAIDs and nephrotoxins agents. She follows up with Dr. Herrera on a regular basis and there has been no changes. Hyperlipidemia - Triglyceride has increased compared to before, goal to be below 150. Diet modification discussed. Continue on atorvastatin 40 mg. Diet modification discussed. Check lipid panel and will make adjustments based on the results Chronic gout -. Stable onon allopurinol, Check uric acid GERD. - Controlled with diet modification DVT of the left upper extremity - She does follow with coastal and estuary specialist. Continue on Eliquis Vision. She is up-to-date Hearing. No problem Dermatology. No suspicious skin lesions at this point Screening for breast cancer. Referred patient for mammogram Screening for colon cancer. She had Cologuard in 2020 we will repeat again She is up to date and age specific vaccinations, declines shingles for now HCP. Margie Hoang [phone] FULL CODE She does have a [employer] home health for home with ADLS and IADLs General concerns have been discussed. Screening blood work before next appointment I have rendered the services for this patient under direct supervision of Dr. Nunn, who did not see the patient but was available upon request 08/28/2024 Gastro-esophageal reflux disease without esophagitis (ICD-10 - K21.9) Mrs. Aceevdo is a 69-year-old lady with hypertension, mixed hyperlipidemia, gout and CKD stage 3 and follows up with Dr. Herrera is here for Follow-up. Plan as follows Hypertension - Blood pressure is elevated in the office today, she was recently seen by sales operations lead recommended to get back on amlodipine 5 [...] upper extremity - She does follow with coastal and estuary specialist. Continue on Eliquis General concerns have been discussed. Screening blood work before next appointment I have rendered the services for this patient under direct supervision of Dr. Nunn, who did not see the patient but was available upon request 08/28/2024 Major depressive disorder, recurrent, moderate (ICD-10 - F33.1) Mrs. Acevedo is a 69-year-old lady with hypertension, mixed hyperlipidemia, gout and CKD stage 3 and follows up with Dr. Herrera is here for Follow-up. Plan as follows Hypertension - Blood pressure is elevated in the office today, she was recently seen by sales operations lead recommended to get back on amlodipine 5 [...] upper extremity - She does follow with coastal and estuary specialist. Continue on Eliquis General concerns have been discussed. Screening blood work before next appointment I have rendered the services for this patient under direct supervision of Dr. Nunn, who did not see the patient but was available upon request 03/23/2025 Gastro-esophageal reflux disease without esophagitis (ICD-10 - K21.9) Mrs. Acevedo is a 69-year-old lady with hypertension, mixed hyperlipidemia, gout and CKD stage 3 and follows up with Dr. Herrera is here for Medicare wellness visit. Plan as follows Hypertension - Blood pressure is within acceptable range. Continue with diet modification and low salt intake, she does follow up with sales operations lead. Chronic kidney disease stage IIIb - Stable at this point. She is not in volume overload. Avoid NSAIDs and nephrotoxins agents. She follows up with Dr. Herrera on a regular basis and there has been no changes. Hyperlipidemia - Triglyceride has increased compared to before, goal to be below 150. Diet modification discussed. Continue on atorvastatin 40 mg. Diet modification discussed. Check lipid panel and will make adjustments based on the results Chronic gout -. Stable onon allopurinol, Check uric acid GERD. - Controlled with diet modification DVT of the left upper extremity - She does follow with coastal and estuary specialist. Continue on Eliquis Vision. She is up-to-date Hearing. No problem Dermatology. No suspicious skin lesions at this point Screening for breast cancer. Referred patient for mammogram Screening for colon cancer. She had Cologuard in 2020 we will repeat again She is up to date and age specific vaccinations, declines shingles for now HCP. Margie Hoang [phone] FULL CODE She does have a [employer] home health for home with ADLS and IADLs General concerns have been discussed. Screening blood work before next appointment I have rendered the services for this patient under direct supervision of Dr. Nunn, who did not see the patient but was available upon request 03/23/2025 Major depressive disorder, recurrent, moderate (ICD-10 - F33.1) Mrs. Acevedo is a 69-year-old lady with hypertension, mixed hyperlipidemia, gout and CKD stage 3 and follows up with Dr. Herrera is here for Medicare wellness visit. Plan as follows Hypertension - Blood pressure is within acceptable range. Continue with diet modification and low salt intake, she does follow up with sales operations lead. Chronic kidney disease stage IIIb - Stable at this point. She is not in volume overload. Avoid NSAIDs and nephrotoxins agents. She follows up with Dr. Herrera on a regular basis and there has been no changes. Hyperlipidemia - Triglyceride has increased compared to before, goal to be below 150. Diet modification discussed. Continue on atorvastatin 40 mg. Diet modification discussed. Check lipid panel and will make adjustments based on the results Chronic gout -. Stable onon allopurinol, Check uric acid GERD. - Controlled with diet modification DVT of the left upper extremity - She does follow with coastal and estuary specialist. Continue on Eliquis Vision. She is up-to-date Hearing. No problem Dermatology. No suspicious skin lesions at this point Screening for breast cancer. Referred patient for mammogram Screening for colon cancer. She had Cologuard in 2020 we will repeat again She is up to date and age specific vaccinations, declines shingles for now HCP. Margie Hoang [phone] FULL CODE She does have a [employer] home health for home with ADLS and IADLs General concerns have been discussed. Screening blood [...] office today, she was recently seen by sales operations lead recommended to get back on amlodipine 5 [...] upper extremity - She does follow with coastal and estuary specialist. Continue on Eliquis General concerns have been discussed. Screening blood work before next appointment I have rendered the services for this patient under direct supervision of Dr. Nunn, who did not see the patient but was available upon request 03/23/2025 Acute embolism and thrombosis of deep veins of left upper extremity (ICD-10 - I82.622) Mrs. Acevedo is a 69-year-old lady with hypertension, mixed hyperlipidemia, gout and CKD stage [address] and follows up with Dr. Herrera is here for Medicare wellness visit. Plan as follows Hypertension - Blood pressure is within acceptable range. Continue with diet modification and low salt intake, she does follow up with sales operations lead. Chronic kidney disease stage IIIb - Stable at this point. She is not in volume overload. Avoid NSAIDs and nephrotoxins agents. She follows up with Dr. Herrera on a regular basis and there has been no changes. Hyperlipidemia - Triglyceride has increased compared to before, goal to be below 150. Diet modification discussed. Continue on atorvastatin 40 mg. Diet modification discussed. Check lipid panel and will make adjustments based on the results Chronic gout -. Stable onon allopurinol, Check uric acid GERD. - Controlled with diet modification DVT of the left upper extremity - She does follow with coastal and estuary specialist. Continue on Eliquis Vision. She is up-to-date Hearing. No problem Dermatology. No suspicious skin lesions at this point Screening for breast cancer. Referred patient for mammogram Screening for colon cancer. She had Cologuard in 2020 we will repeat again She is up to date and age specific vaccinations, declines shingles for now HCP. Sheimar Hoang [phone] FULL CODE She does have a [employer] home health for home with ADLS and IADLs General concerns have been discussed. Screening blood work before next appointment I have rendered the services for this patient under direct supervision of Dr. Nunn, who did not see the patient but was available upon request 03/23/2025 Encounter for screening mammogram for malignant neoplasm of breast (ICD-10 - Z12.31) Mrs. Acevedo is a 69-year-old lady with hypertension, mixed hyperlipidemia, gout and CKD stage [address] and follows up with Dr. Herrera is here for Medicare wellness visit. Plan as follows Hypertension - Blood pressure is within acceptable range. Continue with diet modification and low salt intake, she does follow up with sales operations lead. Chronic kidney disease stage IIIb - Stable at this point. She is not in volume overload. Avoid NSAIDs and nephrotoxins agents. She follows up with Dr. Herrera on a regular basis and there has been no changes. Hyperlipidemia - Triglyceride has increased compared to before, goal to be below 150. Diet modification discussed. Continue on atorvastatin 40 mg. Diet modification discussed. Check lipid panel and will make adjustments based on the results Chronic gout -. Stable onon allopurinol, Check uric acid GERD. - Controlled with diet modification DVT of the left upper extremity - She does follow with coastal and estuary specialist. Continue on Eliquis Vision. She is up-to-date Hearing. No problem Dermatology. No suspicious skin lesions at this point Screening for breast cancer. Referred patient for mammogram Screening for colon cancer. She had Cologuard in 2020 we will repeat again She is up to date and age specific vaccinations, declines shingles for now HCP. Margie Hoang [phone] FULL CODE She does have a [employer] home health for home with ADLS and IADLs General concerns have been discussed. Screening blood work before next appointment I have rendered the services for this patient under direct supervision of Dr. Nunn, who did not see the patient but was available upon request 03/23/2025 Encounter for screening for malignant neoplasm of colon (ICD-10 - Z12.11) Mrs. Acevedo is a 69-year-old lady with hypertension, mixed hyperlipidemia, gout and CKD stage [address] follows up with Dr[address] Herrera is here for Medicare wellness visit. Plan as follows Hypertension - Blood pressure is within acceptable range. Continue with diet modification and low salt intake, she does follow up with sales operations lead. Chronic kidney disease stage IIIb - Stable at this point. She is not in volume overload. Avoid NSAIDs and nephrotoxins agents. She follows up with Dr. Herrera on a regular basis and there has been no changes. Hyperlipidemia - Triglyceride has increased compared to before, goal to be below 150. Diet modification discussed. Continue on atorvastatin 40 mg. Diet modification discussed. Check lipid panel and will make adjustments based on the results Chronic gout -. Stable onon allopurinol, Check uric acid GERD. - Controlled with diet modification DVT of the left upper extremity - She does follow with coastal and estuary specialist. Continue on Eliquis Vision. She is up-to-date Hearing. No problem Dermatology. No suspicious skin lesions at this point Screening for breast cancer. Referred patient for mammogram Screening for colon cancer. She had Cologuard in 2020 we will repeat again She is up to date and age specific vaccinations, declines shingles for now HCP. Margie Hoang [phone] FULL CODE She does have a [employer] home health for home with ADLS and IADLs General concerns have been discussed. Screening blood work before next appointment I have rendered the services for this patient under direct supervision of Dr. Nunn, who did not see the patient but was available upon request Plan Of Treatment Pending Test Test Name Order Date CT Scan : Head, without contrast 024 X ray : Knee, left 2 views 01/27/2024 Comp. Metabolic Panel (14) 08/26/2018 MAMMOGRAM, SCREENING 01/28/2020 MAMMOGRAM, SCREENING 03/23/2025 Prothrombin Time with INR (PT/INR) 09/22 Prothrombin Time with INR (PT/INR) 05/29 Prothrombin Time with INR (PT/INR) 04/10 Basic Metabolic Panel 10/31/2018 Lipid Panel 08/26/2018 Urine Microalbumin (Random) 08/26/2018 Cologuard 03/23/2025 Iron and [id number] 02/12/2024 Ferritin-[id number] 02/12/2024 CBC With Differential/Platelet-[id number] Lipid Panel-[id number] 08/28/2024 Comp. Metabolic Panel [id number] 2024 Next Appt Details Provider Name:Stan dumont, 09/21/2025 03:00:00 PM, [address] [facility] [address], [place], [address], Insurance Providers Payer Name Payer Address Payer Phone Subscriber Number Group Number Insured Name Patient Relationship to Insured Coverage Start Date Coverage End Date [facility] [address] [place] [id number] [phone] [id number] Christy Acevedo Self - patient is the insured Medical (General) History Medical History History ICD Code hypertension, benign hyperlipidemia acid reflux gout Anxiety disorder- at [facility] DVT -LE CKD Stage 3 Leukema in remission and see Dr Gordo López Major depression 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
--- OUTSIDE RECORDS SUMMARY | 2025-05-05 15:32 | XMS_ITS | Clinical Summary ---
Author Organization [facility] Address [address] [place] [address] Care Team Providers Care Utility Worker [place] Name Role Phone Leighann Mcgrath MD Primary Care Provider [phone] Allergies No known active allergies Medications Medication [...] 01/28/2020 Activ e ergocalciferol (VITAMIN D2) capsule 51714 units 1 capsule 0 05/07/2018 Active hydrOXYzine [...] age to complete this topic Care Teams Utility Worker [place] Relationship Specialty Start Date End Date Leighann Mcgrath MD [address] [place] [address] PCP - General Internal Medicine 05/19/21
== END 2025-05-05 08:03 | disposition home or self-care (01) ==
LOC: HO.HKASLDS 08:02
PROVIDERS: PCP Hospitalist; Visit Provider Internal Medicine Nephrology
DX: I12.9 Hypertensive chronic kidney disease with stage 1 through stage 4 chronic kidney disease, or unspecified chronic kidney disease (principal); N18.31 Chronic kidney disease, stage 3a; N25.81 Secondary hyperparathyroidism of renal origin
CPT/HCPCS: 36415; 80051; 82306; 82310; 82565; 82570; 83970; 84156; 84520; 85025

== ENCOUNTER 2025-05-11 15:30 | Outpatient (AMB) | payer OTHER, SELFPAY ==
--- OUTSIDE RECORDS SUMMARY | 2024-08-25 08:30 | XMS_ITS ---
Author Organization [facility] Address [address] [facility] [address] [place] [address] Care Team Providers Care Accounting Professor Name Role Phone ERASTO NUNN Primary Care Provider [phone] Stan Jensen Unavailable [phone] REASON FOR VISIT 6 month f/u Encounters Encounter Location Date Provider Diagnosis [facility] [address] [facility] [address] [place] [address] 08/25/2024 Stan Jensen Plan Of Treatment Next Appt Details Provider Name:Stan dumont, 09/21/2025 03:00:00 PM, [address] [facility] [address], [place], [address], Progress Notes * ACEVEDOChristyDOB:1955 (69 yo F)Acc No.[id number]:08/25/2024 Progress Notes Patient: Christy LISA Appointment Provider: Delbert Jensen :1955 A ge:69 Y S ex:Female Date:08/25/2024 Phone: Address:[address] [place] [address] [address], [facility] Pcp:ERASTO NUNN Subjective: * Chief Complaints: * 1 . 6 month f/u. * Medical History: Objective: * Vitals: Assessment: Plan: * Treatment: * Images: * Electronic signature of Adia Jensen PA-C on 05/11/2025 at 07:03 PM EST Sign off status: Pending * Appointment Provider: Delbert Jensen Date: 0 08/25/2024 Generated for Kady edwards/Jessica/Haleigh on: 1 07/11/2024 07:03 PM EST
--- OUTSIDE RECORDS SUMMARY | 2025-03-04 09:30 | XMS_ITS ---
Author Organization [facility] Address [address] [facility] [address] [place] [address] Care Team Providers Care Auto Club Safety Program Coordinator Name Role Phone ERASTO NUNN Primary Care Provider Stan Jensen Unavailable [phone] REASON FOR VISIT Medicare Wellness Encounters Encounter Location Date Provider Diagnosis [facility] [address] [facility] [address] [place] [address] 03/04/2025 Stan Jensen Plan Of Treatment Next Appt Details Provider Name:Stan dumont, 09/21/2025 03:00:00 PM, [address] [facility] [address], [place], [address], Progress Notes * CURTISChristyDOB:1955 (69 yo F)Acc No.[id number]:03/04/2025 Progress Note Patient: Christy LISA Appointment Provider: Delbert Jensen :1955 A ge:69 Y S ex:Female Date:03/04/2025 Phone: Address:[address] [facility] [address], [place], [place] Pcp:ERASTO NUNN Subjective: * Chief Complaints: * 1 . Medicare Wellness. * Medical History: Objective: * Vitals: Assessment: Plan: * Treatment: * Preventive Medicine: C OVID FLU TDAP SHINGRIX RSV BMD COLONOSCOPY LOG TRUCK DRIVER MAMMOGRAM EYE EXAM. * Images: * Electronic signature of Adia Jensen PA-C on 05/11/2025 at 07:03 PM EST Sign off status: Pending * Appointment Provider: Delbert Jensen Date: 0 03/04/2025 Generated for Kady edwards/Jessica/Haleigh on: 1 07/11/2024 07:03 PM EST
--- NOTE | 2025-05-11 15:38 | HO.NEPHOV ---
Vital Signs 05/11/25 15:43 Height 5 ft 2 in Weight 135 lb 8 oz BMI 24.8 BP 150/70 H Blood Pressure Location Lt brachial Position Sitting Intake Visit Reasons: 6mon f/u w/labs ( Pt going to [place] on 05/17/25 ) Home Visit Field Care Manager Required: Yes Home Visit Field Care Manager Language: Sharepoint Designer Developer Services: Home Visit Field Care Manager Offered & Declined ([place] Home Visit Field Care Manager services refused ) Accompanied by: Other Relationship Allergies No Known Allergies Allergy (Verified 05/11/25 15:42) HPI Comments Details: Christy was seen in follow-up of her chronic kidney disease and hypertension. She has history of leukemia and had undergone bone marrow transplant in 1994( she had been in remission but used to see Dr. Caro at [facility] who has since retired). She does not have any chest pain, shortness of breath, proximal nocturnal dyspnea, orthopnea, pedal edema or urinary symptoms. Her recent serum creatinine has been stable. Her BP is at goal at home. She is not taking OTC medications. [facility] Medical History Leukemia Hypertension CKD (chronic kidney disease) stage 3, GFR 30-59 ml/min Surgical History History of cholecystectomy H/O bone marrow transplant Family History Father Heart disease Mother Diabetes Social History Alcohol intake: current Comment: Socially Patient Tobacco Use Status: Never used Tobacco Review of Systems Const All systems reviewed & are unremarkable except as noted in HPI and below Physical Exam Const General: comfortable and no acute distress Orientation/consciousness: patient oriented x3 HEENT Head: Yes normocephalic Mouth: Normal oral and palatal mucosa present Eyes EOM: EOMs intact bilaterally Neck Neck: Yes supple Resp Auscultation: clear to auscultation bilaterally Cardio Jugular venous distension: no JVD Rate: regular rate GI Palpation (GI): Soft to palpation Auscultation: normal bowel sounds General: Yes no CVA tenderness Back/Spine/Pelvis Back: no CVA tenderness Skin General skin exam: no rashes or lesions noted Neuro General: patient oriented x3 and moves all extremities Extrem General: Yes no pedal edema Results Reviewed Nephrology Results: Hgb, (12.0-16.0) 11.7 g/dl L 05/05/25 WBC, (4.8-10.8) 5.2 X10*3/uL 05/05/25 Plt Count, (160-400) 155 X10*3/uL L 05/05/25 Sodium, (135-145) 142 mmol/L 05/05/25 Potassium, (3.3-5.1) 4.4 mmol/L 05/05/25 Chloride, (96-108) 110 mmol/L H 05/05/25 Carbon Dioxide, (22-29) 23 mmol/L 05/05/25 BUN, (9-16) 41 mg/dL H 05/05/25 Creatinine, (0.5-1.4) 1.48 mg/dL H 05/05/25 Calcium, (8.4-10.2) 9.6 mg/dL 05/05/25 PTH Intact, (8.7-77.1) 125.2 pg/mL H 05/05/25 Urine Creatinine 111.16 mg/dL 05/05/25 Protein/Creatinin Ratio, (<0.2) 0.08 05/05/25 Assessment & Plan Assessment & Plan (1) CKD (chronic kidney disease) stage 3, GFR 30-59 ml/min: Code(s): N18.30 - Chronic kidney disease, stage 3 unspecified Category: Medical Qualifiers: Chronic kidney disease stage 3 subtype: stage 3a (GFR 45-59) Qualified Code(s): N18.31 - Chronic kidney disease, stage 3a (2) Secondary hyperparathyroidism (of renal origin): Code(s): N25.81 - Secondary hyperparathyroidism of renal origin Category: Medical (3) Hypertension: Code(s): I10 - Essential (primary) hypertension Category: Medical Qualifiers: Hypertension type: primary hypertension Qualified Code(s): I10 - Essential (primary) hypertension Plan Christy has CKD for long time. Her serum creatinine is fairly stable. Her BP is at goal at home. She is not known to have any significant proteinuria. She has started taking amlodipine as prescribed . Her ultrasound in the past was unrevealing. She avoids nonsteroidal anti-inflammatories and tries to keep up with good hydration. She has had high uric acid in the past and takes allopurinol . Her serum calcium has been normal. I did not make any other medication changes today. Answered all questions. Follow-up appointment given Orders: Orders Electrolytes 4 Months I10 - Essential (primary) hypertension, N18.31 - Chronic kidney disease, stage 3a, N25.81 - Secondary hyperparathyroidism of renal origin Blood Urea Nitrogen 4 Months I10 - Essential (primary) hypertension, N18.31 - Chronic kidney disease, stage 3a, N25.81 - Secondary hyperparathyroidism of renal origin Creatinine 4 Months I10 - Essential (primary) hypertension, N18.31 - Chronic kidney disease, stage 3a, N25.81 - Secondary hyperparathyroidism of renal origin Hemoglobin A1c 4 Months I10 - Essential (primary) hypertension, N18.31 - Chronic kidney disease, stage 3a, N25.81 - Secondary hyperparathyroidism of renal origin Parathyroid Hormone Intact 4 Months I10 - Essential (primary) hypertension, N18.31 - Chronic kidney disease, stage 3a, N25.81 - Secondary hyperparathyroidism of renal origin Vitamin D 25-OH Total 4 Months I10 - Essential (primary) hypertension, N18.31 - Chronic kidney disease, stage 3a, N25.81 - Secondary hyperparathyroidism of renal origin Phosphorus 4 Months I10 - Essential (primary) hypertension, N18.31 - Chronic kidney disease, stage 3a, N25.81 - Secondary hyperparathyroidism of renal origin Calcium 4 Months I10 - Essential (primary) hypertension, N18.31 - Chronic kidney disease, stage 3a, N25.81 - Secondary hyperparathyroidism of renal origin Protein Creatinine Ratio, Ur 4 Months I10 - Essential (primary) hypertension, N18.31 - Chronic kidney disease, stage 3a, N25.81 - Secondary hyperparathyroidism of renal origin Coding Level of Care Code Est Pt Level 4 (11210) Diagnoses Stage 3a chronic kidney disease N18.31 Chronic kidney disease stage 3 subtype: stage 3a (GFR 45-59) Secondary hyperparathyroidism (of renal origin) N25.81 Primary hypertension I10 Hypertension type: primary hypertension
[2025-05-11 15:43] VITALS: BP 150/70; BMI 24.8
--- OUTSIDE RECORDS SUMMARY | 2025-05-11 19:03 | XMS_ITS | Clinical Summary ---
Author Organization [facility] Address [address] [facility] [address] [place] [address] Phone Care Team Providers Care Audio Tape Librarian Name Role Phone Leighann Mcgrath MD Primary Care Provider [phone] Allergies No known active allergies Medications allopurinol [...] left femoral vein 02/28/2018 09/27/2020 Overview (09/27/2020): [facility] (03/18/18): anticoagulation for 3-6 months Chronic [...] this topic Insurance MCR ([id number]) [place] [id number] MCR ([id number]) Care Teams Audio Tape Librarian Relationship Specialty Start Date End Date Leighann Mcgrath MD [address] [place] [address] PCP - General 06/27/20
--- OUTSIDE RECORDS SUMMARY | 2025-05-11 19:03 | XMS_ITS | Clinical Summary ---
Author Organization [facility] Address [address] [place] [address] Care Team Providers Care Wood Preparation Supervisor Name Role Phone Leighann Mcgrath MD Primary Care Provider [phone] Allergies No known active allergies Medications Medication [...] 01/28/2020 Activ e ergocalciferol (VITAMIN D2) capsule 82098 units 1 capsule 0 05/07/2018 Active hydrOXYzine [...] age to complete this topic Care Teams Wood Preparation Supervisor Relationship Specialty Start Date End Date Leighann Mcgrath MD [address] [place] [address] PCP - General Internal Medicine 05/19/21
--- OUTSIDE RECORDS SUMMARY | 2025-05-11 19:03 | XMS_ITS | Clinical Summary ---
Author Organization [facility] [employer] Address [address] [facility] [address] [place] [address] Care Team Providers Care Automation Engineering Manager Name Role Phone Unavailable Primary Care Provider Unavailabl e Social History Tobacco Use Types Packs/Day Years Used Date Smoking Tobacco: Never Assessed Sex and Gender Information Value Date Recorded Sex Assigned at Male 03/24/2025 10:53 AM EDT Legal Sex Female 10:36 AM EDT Gender Identity Not on file Sexual Orientation Not on file Plan of Treatment Upcoming Encounters Date Type Department Care Team ([facility] st Contact Info) Description 05/28/2025 9:00 AM EST Office Visit [facility] [address] [place] [address] Laurel Harrison, [address] [address] [place] [address] Health Maintenance Due Date Last Done Comments [...] patient's age to complete this topic Insurance [facility] [employer] OPTIONS (O D-SNP) [place] [id number]
--- OUTSIDE RECORDS SUMMARY | 2025-05-11 19:03 | XMS_ITS | Encounter Summary ---
Author Organization [facility] Address [address] [place] [address] Phone Care Team Providers Care Pouch Maker Name Role Phone Leighann Mcgrath MD Primary Care Provider [phone] Encounter Details Date Type Department Care Team (Late st Contact Info) Description 07/25/2021 Documentation Only [facility] [address] [place] [address] Dain Herrera MD [address] [place] [address] Social History Tobacco Use Types Packs/Day Years [...] on filedocumented in this encounter Care Teams Pouch Maker Relationship Specialty Start Date End Date Leighann Mcgrath MD [address] [place] [address] PCP - General 06/27/20 documented as of this encounter
--- OUTSIDE RECORDS SUMMARY | 2025-05-11 19:03 | XMS_ITS | Patient Health Record ---
Author Organization [employer] [facility] Address [address] [place] [address] Care Team Providers Care Tenant Relations Coordinator Name Role Phone ERASTO NUNN Primary Care Provider TamelaStan lopez Unavailable [phone] Allergies No Known Allergies Results Component Value Reference Range Notes Lipid Panel-[id number] Reviewed date:03/04/2025 12:23:59 PM Interpretation: Performing Lab:[facility], [address] [facility], Phone - [phone], Director - Anusha Notes/Report: Cholesterol, Total 173 100-199 mg/dL Triglycerides 152 0-149 mg/dL HDL Cholesterol 49 >39 mg/dL VLDL Cholesterol Mik 27 5-40 mg/dL LDL Chol Calc (NIH) 97 0-99 mg/dL Lipid Panel-[id number] Reviewed date:09/10/2024 07:59:35 AM Interpretation: Performing Lab:[facility], [address] [facility], Phone - [phone], Director - Enmanuely Notes/Report: Cholesterol, Total 149 100-199 mg/dL Triglycerides 133 0-149 mg/dL HDL Cholesterol 51 >39 mg/dL VLDL Cholesterol Mik 23 5-40 mg/dL LDL Chol Calc (NIH) 75 0-99 mg/dL Albumin/Creatinine Ratio,Uri ne-[id number] Reviewed date:09/10/2024 05:22:46 PM Interpretation: Performing Lab:[facility], [address] [facility], Phone - [phone], Director - Anusha Notes/Report: Creatinine, Urine 134.0 Not Estab. mg/dL [...] days Not-Taking Vitamin D (Ergocalciferol) 1.25 MG (25342 UT) TAKE 1 CAPSULE BY MOUTH EVERY WEEK Orally Once weekly; Duration: 30 days Not-Taking Prazosin HCl 1 MG 1 capsule at bedtime Orally Once a day Not-Taking Pneumovax 23 25 MCG/0.5ML as directed In jection 1; Duration: 362 days 04/25/2021 Not-Taking Sertraline HCl 100 MG 1 tablet Orally On ce a day Not-Taking Ergocalciferol 10588 UNIT 1 capsule Oral ly once a [...] Status W/U Status Risk Notes Problem Leukemia (87158811) Leukemia, unspecified not having achieved remission (C95.90) Active confirmed Problem Non-toxic single thyroid nodule (327234546) Nontoxic single thyroid nodule (E04.1) Active confirmed Problem Vitamin D deficiency (36250414) Vitamin D deficiency, unspecified (E55.9) Active confirmed Problem Mixed hyperlipidemia (579491832) Mixed hyperlipidemia (E78.2) Active confirmed Problem Moderate recurrent major depression (89044865) Major depressive disorder, recurrent, moderate (F33.1) Active confirmed Problem Generalized anxiety disorder (27826355) Generalized anxiety disorder (F41.1) Active confirmed Problem Embolism from thrombosis of vein of lower extremity (151556298) 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) Active confirmed Problem Acute deep venous thrombosis of left upper extremity (410359098163011) Acute embolism and thrombosis of deep veins of left upper extremity (I82.622) Active confirmed Problem Lymphedema (676725918) Lymphedema, not elsewhere classified (I89.0) Active confirmed Problem Gastro-esophageal reflux disease without esophagitis (536411341) Gastro-esophageal reflux disease without esophagitis (K21.9) Active confirmed Problem Chronic gouty arthritis (96737441) Chronic gout, unspecified, without tophus (tophi) (M1A.9XX0) Active confirmed Problem Osteoarthritis of knee (613348039) Unilateral primary osteoarthritis, left knee (M17.12) Active confirmed Problem Osteoarthritis of knee (205932142) Osteoarthritis of knee, unspecified (M17.9) Active confirmed Problem Age-related osteoporosis (056511503) Age-related osteoporosis without current pathological fracture (M81.0) Active confirmed Problem Chronic kidney disease stage 3 (disorder) (405121169) Chronic kidney disease, stage 3 (moderate) (N18.3) Active confirmed Problem Proteinuria (07543505) Proteinuria, unspecified (R80.9) Active confirmed Problem Essential hypertension (71622211) Essential (primary) hypertension (I10) Active confirmed Problem Chronic kidney disease stage 3A (disorder) (302033792) Chronic kidney disease, stage 3a (N18.31) Active confirmed Problem Chronic kidney disease stage 3B (disorder) (376450292) Chronic kidney disease, stage 3b (N18.32) Active confirmed Problem History of disease caused by Severe acute respiratory syndrome coronavirus 2 (situation) (1244740480662006 05) Personal history of COVID-19 (Z86.16) Active confirmed Vital Signs Heart Rate 81 /min 03/23/2025 Temperature 97.7 degrees Fahrenheit 03/23/2025 Blood pressure diastolic 70 mm Hg 03/23/2025 Oximetry 98 % 03/23/2025 Height 61.26 in 03/23/2025 Blood pressure systolic 135 mm Hg 03/23/2025 Weight 138.9 lbs 03/23/2025 BMI 26.02 kg/m2 03/23/2025 Encounters Encounter Location Date Provider Diagnosis [facility] [address] [address] 08/28/2024 Stan Jensen Essential (primary) hypertension I10 ; Chronic kidney disease, stage 3a N18.31 ; Mixed hyperlipidemia E78.2 ; Chronic gout, unspecified, without tophus (tophi) M1A.9XX0 ; Gastro-esophageal reflux disease without esophagitis K21.9 ; Major depressive disorder, recurrent, moderate F33.1 and Acute embolism and thrombosis of deep veins of left upper extremity I82.622 [facility] [address] [facility] [facility] [address] [place] [address] 09/10/2024 Ghadeer Walterloum Essential (primary) hypertension I10 [address] [place] [address] 03/23/2025 Ghslyer Walterloum Essential (primary) hypertension I10 [...] screening for malignant neoplasm of colon Z12.[address] [place] [address] 08/25/[address] [place] [address] 10/07/[address] [place] [address] 12/24/[address] [place] [address] 12/28/[address] [place] [address] [facility] [place] [address] 03/23/[address] [place] [address] 03/23/2025 Stan Jensen Encounter for screen ing for malignant neoplasm of colon Z12.11 [facility] [address] [facility] [address] [place] [address] 04/01/2025 Stan Jensen Assessments Encounter Date Diagnosis [...] office today, she was recently seen by diversified crops farmer recommended to get back on amlodipine 5 [...] upper extremity - She does follow with glazier apprentice. Continue on Eliquis General concerns have been [...] office today, she was recently seen by diversified crops farmer recommended to get back on amlodipine 5 [...] upper extremity - She does follow with glazier apprentice. Continue on Eliquis General concerns have been [...] patient but was available upon request 03/23/2025 Essential (primary) hypertension (ICD-10 - I10) Mrs. Acevedo is a 69-year-old lady with hypertension, mixed hyperlipidemia, gout and CKD stage [address] and follows up with Dr. Herrera is here for Medicare wellness visit. Plan as follows Hypertension - Blood pressure is within acceptable range. Continue with diet modification and low salt intake, she does follow up with diversified crops farmer. Chronic kidney disease stage IIIb - Stable [...] upper extremity - She does follow with glazier apprentice. Continue on Eliquis Vision. She is up-to-date Hearing. No problem Dermatology. No suspicious skin lesions at this point Screening for breast cancer. Referred patient for mammogram Screening for colon cancer. She had Cologuard in 2020 we will repeat again She is up to date and age specific vaccinations, declines shingles for now HCP. Margie Hoang [phone] FULL CODE She does have a [employer] home health for home with ADLS and [...] salt intake, she does follow up with diversified crops farmer. Chronic kidney disease stage IIIb - Stable [...] upper extremity - She does follow with glazier apprentice. Continue on Eliquis Vision. She is up-to-date Hearing. No problem Dermatology. No suspicious skin lesions at this point Screening for breast cancer. Referred patient for mammogram Screening for colon cancer. She had Cologuard in 2020 we will repeat again She is up to date and age specific vaccinations, declines shingles for now HCP. Margie Hoang [phone] FULL CODE She does have a [employer]CH[employer] home health for home with ADLS and IADLs General concerns have been discussed. Screening blood work before next appointment I have rendered the services for this patient under direct supervision of Dr. Nunn, who did not see the patient but was available upon request 03/23/2025 Encounter for screening for malignant neoplasm of colon (ICD-10 - Z12.11) 03/23/2025 Chronic kidney disease, stage 3b (ICD-10 - N18.32) Mrs. Acevedo is a 69-year-old lady with hypertension, mixed hyperlipidemia, gout and CKD stage [address] follows up with Dr. Herrera is here for Medicare wellness visit. Plan as follows Hypertension - Blood pressure is within acceptable range. Continue with diet modification and low salt intake, she does follow up with diversified crops farmer. Chronic kidney disease stage IIIb - Stable [...] upper extremity - She does follow with glazier apprentice. Continue on Eliquis Vision. She is up-to-date Hearing. No problem Dermatology. No suspicious skin lesions at this point Screening for breast cancer. Referred patient for mammogram Screening for colon cancer. She had Cologuard in 2020 we will repeat again She is up to date and age specific vaccinations, declines shingles for now HCP. Margie Hoang [phone] FULL CODE She does have a [employer] home health for home with ADLS and [...] office today, she was recently seen by diversified crops farmer recommended to get back on amlodipine 5 [...] upper extremity - She does follow with glazier apprentice. Continue on Eliquis General concerns have been [...] salt intake, she does follow up with diversified crops farmer. Chronic kidney disease stage IIIb - Stable [...] upper extremity - She does follow with glazier apprentice. Continue on Eliquis Vision. She is up-to-date Hearing. No problem Dermatology. No suspicious skin lesions at this point Screening for breast cancer. Referred patient for mammogram Screening for colon cancer. She had Cologuard in 2020 we will repeat again She is up to date and age specific vaccinations, declines shingles for now HCP. Margie Hoang [phone] FULL CODE She does have a [employer] home health for home with ADLS and [...] office today, she was recently seen by diversified crops farmer recommended to get back on amlodipine 5 [...] upper extremity - She does follow with glazier apprentice. Continue on Eliquis General concerns have been [...] office today, she was recently seen by diversified crops farmer recommended to get back on amlodipine 5 [...] upper extremity - She does follow with glazier apprentice. Continue on Eliquis General concerns have been [...] salt intake, she does follow up with diversified crops farmer. Chronic kidney disease stage IIIb - Stable [...] upper extremity - She does follow with glazier apprentice. Continue on Eliquis Vision. She is up-to-date Hearing. No problem Dermatology. No suspicious skin lesions at this point Screening for breast cancer. Referred patient for mammogram Screening for colon cancer. She had Cologuard in 2020 we will repeat again She is up to date and age specific vaccinations, declines shingles for now HCP. Margie Hoang [phone] FULL CODE She does have a [employer]CH[employer] home health for home with ADLS and [...] salt intake, she does follow up with diversified crops farmer. Chronic kidney disease stage IIIb - Stable [...] upper extremity - She does follow with glazier apprentice. Continue on Eliquis Vision. She is up-to-date Hearing. No problem Dermatology. No suspicious skin lesions at this point Screening for breast cancer. Referred patient for mammogram Screening for colon cancer. She had Cologuard in 2020 we will repeat again She is up to date and age specific vaccinations, declines shingles for now HCP. Margie Hoang [phone] FULL CODE She does have a [employer] home health for home with ADLS and [...] office today, she was recently seen by diversified crops farmer recommended to get back on amlodipine 5 [...] upper extremity - She does follow with glazier apprentice. Continue on Eliquis General concerns have been [...] office today, she was recently seen by diversified crops farmer recommended to get back on amlodipine 5 [...] upper extremity - She does follow with glazier apprentice. Continue on Eliquis General concerns have been [...] salt intake, she does follow up with diversified crops farmer. Chronic kidney disease stage IIIb - Stable [...] upper extremity - She does follow with glazier apprentice. Continue on Eliquis Vision. She is up-to-date Hearing. No problem Dermatology. No suspicious skin lesions at this point Screening for breast cancer. Referred patient for mammogram Screening for colon cancer. She had Cologuard in 2020 we will repeat again She is up to date and age specific vaccinations, declines shingles for now HCP. Margie Hoang [phone] FULL CODE She does have a [employer]CH[employer] home health for home with ADLS and [...] salt intake, she does follow up with diversified crops farmer. Chronic kidney disease stage IIIb - Stable [...] upper extremity - She does follow with glazier apprentice. Continue on Eliquis Vision. She is up-to-date Hearing. No problem Dermatology. No suspicious skin lesions at this point Screening for breast cancer. Referred patient for mammogram Screening for colon cancer. She had Cologuard in 2020 we will repeat again She is up to date and age specific vaccinations, declines shingles for now HCP. 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 Chronic kidney disease stage IIIb - Stable [...] upper extremity - She does follow with glazier apprentice. Continue on Eliquis Vision. She is up-to-date Hearing. No problem Dermatology. No suspicious skin lesions at this point Screening for breast cancer. Referred patient for mammogram Screening for colon cancer. She had Cologuard in 2020 we will repeat again She is up to date and age specific vaccinations, declines shingles for now HCP. 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 Chronic kidney disease stage IIIb - Stable [...] upper extremity - She does follow with glazier apprentice. Continue on Eliquis Vision. She is up-to-date Hearing. No problem Dermatology. No suspicious skin lesions at this point Screening for breast cancer. Referred patient for mammogram Screening for colon cancer. She had Cologuard in 2020 we will repeat again She is up to date and age specific vaccinations, declines shingles for now HCP. Margie Hoang [phone] FULL CODE She does have a ASE MA[employer] MECHANIC home health for home with ADLS and [...] Comp. Metabolic Panel (14) 08/26/2018 MAMMOGRAM, SCREENING 03/23/2025 MAMMOGRAM, SCREENING 01/28/2020 Prothrombin Time with INR (PT/INR) 09/22 Prothrombin Time with INR (PT/INR) 05/29 Prothrombin Time with INR (PT/INR) 04/10 Basic Metabolic Panel 10/31/2018 Lipid Panel 08/26/2018 Urine Microalbumin (Random) 08/26/2018 Cologuard 03/23/2025 Iron and TIBC-[id number] 02/12/2024 Ferritin-[id number] 02/12/2024 CBC With Differential/Platelet-[id number] Lipid Panel-[id number] 08/28/2024 Comp. Metabolic Panel [id number] 2024 Next Appt Details Provider Name:Stan dumont, 09/21/2025 03:00:00 PM, [address] [facility] [address], [place], [address], Insurance Providers Payer Name Payer Address Payer Phone Subscriber Number Group Number Insured Name Patient Relationship to Insured Coverage Start Date Coverage End Date [facility] [address] [place] [id number] [phone] [id number] Christy Acevedo Self - patient is the insured Medical (General) History Medical History History ICD Code hypertension, benign hyperlipidemia acid reflux gout Anxiety disorder- at [facility] DVT -LE CKD Stage 3 Leukema in remission and see Dr Gordo López Major depression 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
== END 2025-05-11 15:53 | disposition home or self-care (01) ==
LOC: HO.HKAS 15:31
PROVIDERS: PCP Hospitalist; Visit Provider Internal Medicine Nephrology
DX: N18.31 Chronic kidney disease, stage 3a (principal); N25.81 Secondary hyperparathyroidism of renal origin; I10 Essential (primary) hypertension
CPT/HCPCS: 99214

== ENCOUNTER → 2025-05-11 15:30 | Outpatient (BNVA) | payer OTHER, SELFPAY | PROVIDERS: PCP Hospitalist; Visit Provider Internal Medicine Nephrology | DX: I12.9 Hypertensive chronic kidney disease with stage 1 through stage 4 chronic kidney disease, or unspecified chronic kidney disease (principal); N18.31 Chronic kidney disease, stage 3a; N25.81 Secondary hyperparathyroidism of renal origin | CPT/HCPCS: 99212 ==